=== PATIENT | female | born 1990 | race Caucasian/White ===

== ENCOUNTER 2020-01-07 07:24 | Emergency (ER) | payer SELFPAY ==
[2020-01-07] MEDS ORDERED: DIPHENHYDRAMINE 50 MG/ML VIAL ONE (07:54)
[2020-01-07] MEDS ORDERED: KETOROLAC 30 MG/ML INJ ONE (07:54)
[2020-01-07] MEDS ORDERED: METOCLOPRAMIDE 10 MG/2mL INJ ONE (07:54)
[2020-01-07] MEDS ORDERED: NA CHLORIDE 0.9% 1,000 ML ONE (07:55)
--- NOTE | 2020-01-07 08:50 | ER ---
Nurse's Notes [facility] Name: Chano Washington Age: 29 yrs Sex: Female : 1990 Arrival Date: 01/07/2020 Time: 07:28 Bed 18 Private MD: Diagnosis: Migraine;Acute pharyngitis Presentation: 01/07 07:38 Presenting complaint: Patient states: migraine, sore throat, fever/chills since last iw night, hx of migraines but this one is more intense. Transition of care: patient was not received from another setting of care. Onset of symptoms was January 06, 2020. Risk Assessment: Do you want to hurt yourself or someone else? Patient reports no desire to harm self or others. Initial Sepsis Screen: Does the patient meet any 2 criteria? No. Patient's initial sepsis screen is negative. Does the patient have a suspected source of infection? No. Patient's initial sepsis screen is negative. Care prior to arrival: Medication(s) given: Motrin, at 0400 Tylenol, at 0600. 07:38 Method Of Arrival: Ambulatory iw 07:38 Acuity: MARLIN 3 iw Triage Assessment: 07:35 Headache History: The patient has had previous headaches and this one is more severe rb1 than previous episodes. 07:35 Pain: Also complains of sleeplessness. 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 - Coronavirus screen:: The patient has NOT traveled to [place] in the past 14 days. Proceed with normal triage process as indicated. - Social history:: Smoking status: Patient denies any tobacco usage or history of. - Ebola Screening: : Patient negative for fever greater than or equal to 101.5 degrees Fahrenheit, and additional compatible Ebola Virus Disease symptoms Patient denies exposure to infectious person Patient denies travel to an Ebola-affected area in the 21 days before illness onset No symptoms or risks identified at this time. Screenin:35 Abuse screen: Denies threats or abuse. Nutritional screening: No deficits noted. rb1 Tuberculosis screening: No symptoms or risk factors identified. Fall Risk None identified. Assessment: 07:35 General: Appears uncomfortable, Behavior is calm, cooperative, Reports chills for fever rb1 for feeling ill for 12-24 hours. Pain: Complains of pain in forehead Pain currently is 10 out of 10 on a pain scale. Pain began last night. Neuro: Level of Consciousness is awake, alert, obeys commands, Oriented to person, place, time, situation. Cardiovascular: Capillary refill < 3 seconds is brisk in bilateral fingers. Respiratory: Airway is patent Respiratory effort is even, unlabored, Respiratory pattern is regular, symmetrical. EENT: Throat pt. reports sore throat. Derm: Skin is pink, warm \T\ dry. 08:30 Reassessment: Patient appears in no apparent distress at this time. Patient and/or rb1 family updated on plan of care and expected duration. Pain level reassessed. Patient is alert, oriented x 3, equal unlabored respirations, skin warm/dry/pink. Patient states symptoms have improved. 08:59 Reassessment: Discharge pending due to IV fluids infusing. rb1 09:20 Reassessment: Patient appears in no apparent distress at this time. Patient and/or rb1 family updated on plan of care and expected duration. Pain level reassessed. Patient is alert, oriented x 3, equal unlabored respirations, skin warm/dry/pink. Patient states feeling better. Vital Signs: 07:41 BP 133 / 75; Pulse 119; Resp 18 S; Temp 99.0(O); Pulse Ox 100% on R/A; Weight 115.67 iw kg; Height 5 ft. 1 in. (154.94 cm); Pain 8/10; 08:40 BP 112 / 71; Pulse 105; Resp 17; Pulse Ox 95% on R/A; Pain 5/10; rb1 07:41 Body Mass Index 48.18 (115.67 kg, 154.94 cm) iw [place] Coma Score: 07:55 Eye Response: spontaneous(4). Verbal Response: oriented(5). Motor Response: obeys kb commands(6). Total: 15. ED Course: 07:28 Patient arrived in ED. ag5 07:28 Tereza Willams FNP-C [facility]. kb 07:28 Chris Bagley MD is Attending Physician. kb 07:35 Patient has correct armband on for positive identification. Bed in low position. Call rb1 light in reach. Side rails up X 1. Pulse ox on. NIBP on. sheet was given to the pt.. 07:37 Gayle Smalls, RN is Primary Nurse. rb1 07:40 Triage completed. iw 07:40 Inserted saline lock: 22 gauge in right antecubital area, using aseptic technique. rb1 07:54 Arm band placed on. iw 09:25 No provider procedures requiring assistance completed. rb1 09:25 IV discontinued. rb1 Administered Medications: 08:00 Drug: NS 0.9% 1000 ml Route: IV; Rate: 1000 ml; Site: right antecubital; rb1 09:20 Follow up: IV Status: Completed infusion rb1 08:00 Drug: Benadryl 12.5 mg Route: IVP; Site: right antecubital; rb1 08:15 Follow up: Response: No adverse reaction rb1 08:00 Drug: Reglan 10 mg Route: IVP; Site: right antecubital; rb1 08:15 Follow up: Response: No adverse reaction; Marked relief of symptoms rb1 08:00 Drug: TORadol - Ketorolac 15 mg Route: IVP; Site: right antecubital; rb1 08:15 Follow up: Response: No adverse reaction; Pain is decreased rb1 Output: 08:58 Urine: 1ml (Voided); Total: 1ml. rb1 Outcome: 08:49 Discharge ordered by MD. kb 09:25 Patient left the ED. rb1 09:25 Discharged to home ambulatory. rb1 09:25 Condition: stable 09:25 Discharge instructions given to patient, Instructed on discharge instructions, follow up and referral plans. Demonstrated understanding of instructions, follow-up care, Prescriptions given X none Signatures: Tereza Willams, PRODUCT TEST ENGINEER-C PRODUCT TEST ENGINEER-CkLiz Abrams RN RN iw Gayle Smalls, RN RN rb1 Braeden Peterson ag5 Corrections: (The following items were deleted from the chart) 07:53 07:41 BP 133 / 75; Pulse 119bpm; Resp 18bpm; Spontaneous; Pulse Ox 100% RA; Temp 99.0F iw Oral; iw
--- NOTE | 2020-01-07 08:50 | EDPHYS ---
Physician Documentation [facility] Name: Chano Washington Age: 29 yrs Sex: Female : 1990 Arrival Date: 01/07/2020 Time: 07:28 Bed 18 Private MD: ED Physician Chris Bagley HPI: 01/07 07:52 This 29 yrs old Female presents to ER via Ambulatory with complaints of Headache, Sore kb Throat. 07:52 The patient complains of pain to the forehead. The patient describes the headache as kb constant. Onset: The symptoms/episode began/occurred last night. Associated signs and symptoms: Pertinent positives: sore throat, chills, rhinorrhea. Severity of symptoms: At its worst the pain was moderate, in the emergency department the pain is unchanged. Headache History: The patient has had previous headaches and this one is similar to previous episodes, and this one is more severe than previous episodes. The symptoms are alleviated by nothing. the symptoms are aggravated by lights, movement, noise. The patient has experienced similar episodes in the past. The patient has not recently seen a physician. Pt reports migraine started last night with sore throat and runny nose. States the migraine feels the same as previous, but more intense. Denies fever, reports chills. . 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 - Coronavirus screen:: The patient has NOT traveled to [place] in the past 14 days. Proceed with normal triage process as indicated. - Social history:: Smoking status: Patient denies any tobacco usage or history of. - Ebola Screening: : Patient negative for fever greater than or equal to 101.5 degrees Fahrenheit, and additional compatible Ebola Virus Disease symptoms Patient denies exposure to infectious person Patient denies travel to an Ebola-affected area in the 21 days before illness onset No symptoms or risks identified at this time. ROS: 07:52 Neck: Negative for injury, pain, and swelling, Cardiovascular: Negative for chest pain, kb palpitations, and edema, Respiratory: Negative for shortness of breath, cough, wheezing, and pleuritic chest pain, Abdomen/GI: Negative for abdominal pain, nausea, vomiting, diarrhea, and constipation, Back: Negative for injury and pain, MS/Extremity: Negative for injury and deformity, Skin: Negative for injury, rash, and discoloration. 07:52 Constitutional: Positive for chills, malaise. 07:52 ENT: Positive for rhinorrhea, sore throat. 07:52 Neuro: Positive for headache. Exam: 07:52 Constitutional: This is a well developed, well nourished patient who is awake, alert, kb and in no acute distress. Head/Face: Normocephalic, atraumatic. ENT: Nares patent. No nasal discharge, no septal abnormalities noted. Tympanic membranes are normal and external auditory canals are clear. Oropharynx with no redness, swelling, or masses, exudates, or evidence of obstruction, uvula midline. Mucous membranes moist. Neck: Trachea midline, no thyromegaly or masses palpated, and no cervical lymphadenopathy. Supple, full range of motion without nuchal rigidity, or vertebral point tenderness. No Meningismus. Chest/axilla: Normal chest wall appearance and motion. Nontender with no deformity. No lesions are appreciated. Cardiovascular: Regular rate and rhythm with a normal S1 and S2. No gallops, murmurs, or rubs. Normal PMI, no JVD. No pulse deficits. Respiratory: Lungs have equal breath sounds bilaterally, clear to auscultation and percussion. No rales, rhonchi or wheezes noted. No increased work of breathing, no retractions or nasal flaring. Abdomen/GI: Soft, non-tender, with normal bowel sounds. No distension or tympany. No guarding or rebound. No evidence of tenderness throughout. Back: No spinal tenderness. No costovertebral tenderness. Full range of motion. Skin: Warm, dry with normal turgor. Normal color with no rashes, no lesions, and no evidence of cellulitis. MS/ Extremity: Pulses equal, no cyanosis. Neurovascular intact. Full, normal range of motion. Neuro: Awake and alert, GCS 15, oriented to person, place, time, and situation. Cranial nerves II-XII grossly intact. Motor strength 5/5 in all extremities. Sensory grossly intact. Cerebellar exam normal. Normal gait. Vital Signs: 07:41 BP 133 / 75; Pulse 119; Resp 18 S; Temp 99.0(O); Pulse Ox 100% on R/A; Weight 115.67 iw kg; Height 5 ft. 1 in. (154.94 cm); Pain 8/10; 08:40 BP 112 / 71; Pulse 105; Resp 17; Pulse Ox 95% on R/A; Pain 5/10; rb1 07:41 Body Mass Index 48.18 (115.67 kg, 154.94 cm) iw [place] Coma Score: 07:55 Eye Response: spontaneous(4). Verbal Response: oriented(5). Motor Response: obeys kb commands(6). Total: 15. MDM: 07:34 Patient medically screened. kb 07:55 Differential diagnosis: migraine, strep, influenza. Data reviewed: vital signs, nurses kb notes. Data interpreted: Pulse oximetry: on room air is 100 %. Interpretation: normal. 08:46 Counseling: I had a detailed discussion with the patient and/or guardian regarding: the kb historical points, exam findings, and any diagnostic results supporting the discharge/admit diagnosis, lab results, radiology results, the need for outpatient follow up, a family practitioner, to return to the emergency department if symptoms worsen or persist or if there are any questions or concerns that arise at home. 08:54 ED course: Headache resolved after treatment. kb 01/07 07:29 Order name: Flu; Complete Time: 08:16 kb 01/07 07:29 Order name: Strep; Complete Time: 08:09 kb 01/07 08:07 Order name: Throat Culture EDKY 01/07 07:39 Order name: IV Start; Complete Time: 08:04 kb Administered Medications: 08:00 Drug: NS 0.9% 1000 ml Route: IV; Rate: 1000 ml; Site: right antecubital; rb1 09:20 Follow up: IV Status: Completed infusion rb1 08:00 Drug: Benadryl 12.5 mg Route: IVP; Site: right antecubital; rb1 08:15 Follow up: Response: No adverse reaction rb1 08:00 Drug: Reglan 10 mg Route: IVP; Site: right antecubital; rb1 08:15 Follow up: Response: No adverse reaction; Marked relief of symptoms rb1 08:00 Drug: TORadol - Ketorolac 15 mg Route: IVP; Site: right antecubital; rb1 08:15 Follow up: Response: No adverse reaction; Pain is decreased rb1 Disposition: 10:02 Co-signature as Attending Physician, Chris Bagley MD. rn Disposition: 01/07/20 08:49 Discharged to Home. Impression: Migraine, Acute pharyngitis. - Condition is Stable. - Discharge Instructions: Pharyngitis, [id number], Migraine Headache, [id number], Viral Respiratory Infection, [id number]. - Medication Reconciliation Form, Thank You Letter, Antibiotic Education, Prescription Opioid Use form. - Follow up: Emergency Department; When: As needed; Reason: Worsening of condition. Follow up: Private Physician; When: 2 - 3 days; Reason: Recheck today's complaints, Continuance of care, Re-evaluation by your physician. Signatures: Dispatcher [employer] Tereza Skinner, JULIEN GRECOP-Liz Peters RN RN iw Nieto, Roman, MD MD rn Barber, Rebecca, RN RN rb1 Corrections: (The following items were deleted from the chart) 09:25 08:49 01/07/2020 08:49 Discharged to Home. Impression: Migraine; Acute pharyngitis. rb1 Condition is Stable. Forms are Medication Reconciliation Form, Thank You Letter, Antibiotic Education, Prescription Opioid Use. Follow up: Emergency Department; When: As needed; Reason: Worsening of condition. Follow up: Private Physician; When: 2 - 3 days; Reason: Recheck today's complaints, Continuance of care, Re-evaluation by your physician. kb
== END 2020-01-07 09:25 | disposition home or self-care (01) ==
LOC: ER 07:24
DX: G43.909 Migraine, unspecified, not intractable, without status migrainosus (principal); J02.9 Acute pharyngitis, unspecified
CPT/HCPCS: 87070; 87081; 87804; 96361; 96374; 96375; 99284; J1200; J2765; J7030

== ENCOUNTER 2022-10-05 23:08 | Emergency (ER) | payer OTHER, SELFPAY ==
--- OUTSIDE RECORDS SUMMARY | 2022-10-05 23:16 | XMS REPORT | Continuity of Care Document ---
:1990 Author Organization [facility] t Address [address] [place] [address] Care Team Providers Name Role Phone Pcp, Patient Does Not Have A Primary Care Physician +[id number] Ольга Attending Clinician Unavailable SOPHIA RAMOS Attending Clinician Unavailable MARK COFFEY Attending Clinician Unavailable Nurse, Adc Pob Immunization Attending Clinician Unavailable Mark Coffey DO Attending Clinician Sophia Ramos MD Attending Clinician Maury Verduzco PA-C Attending Clinician Doctor Unassigned, [place] Attending Clinician Unavailable MAURY VERDUZCO Attending Clinician Unavailable Juan Diego HUERTA, Isabella Grande Attending Clinician Unavailable JOHNNIE GUTIERREZ Attending Clinician Unavailable Lucia Le MD Attending Clinician HARVEY NARAYANAN Attending Clinician Unavailable [facility] Attending Clinician Unavailable Ultrasound, Adc Mfm Attending Clinician Unavailable Johnnie Gutierrez MD Attending Clinician Harvey Narayanan MD Attending Clinician Joaquin Granger MD Attending Clinician Ultrasound, Terrell-Mfmaximino Attending Clinician Unavailable Gordon Callahan MD, Dia Attending Clinician [phone] Deya Coffey MD Attending Clinician Tiki Del Valle Attending Clinician Unavailable Cesar Hinojosa MD Attending Clinician CESAR HINOJOSA Attending Clinician Unavailable 2, Adc Lab Attending Clinician Unavailable Johnson HAMPTON, Ting Ashton Attending Clinician TING ORNELAS Attending Clinician Unavailable Gela HUERTA, Joleen Attending Clinician Unavailable ANNABELLE MOHR Attending Clinician Unavailable Nurse, Adc Women[facility] Attending Clinician Unavailable Pob, Adc Lab Main Attending Clinician Unavailable RICHARD, SOPHIA MELVIN Admitting Clinician Unavailable Ольга Admitting Clinician Unavailable Richard HAMPTON, Sophia Melvin Admitting Clinician Lucia Le MD Admitting Clinician Payers Payer Name Policy Type Policy Number Effective Date Expiration Date [facility] [id number] 2020 [facility] [employer] 00:00:00 [facility] [id number] 2016 [facility] 00:00:00 (MEDICAID HMO) [place]ICAID [place] [id number] 2020 00:00:00 Problems Condition Condition Condition Status Onset Resolution Last Treating Co mments Source Name Details Category Date Date Treatment Clinician Date Morbid Morbid Disease Active Univers obesity obesity 9-04 [place] index [place] dical of 50 or of 50 or Branch higher higher Previous Previous Disease Active Unive rs 12-16 ity of section section 00:00: [place] 00 Medical [facility] 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 00 Medical depressive depressive Br anch disorder, disorder, 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 Pregestati Pregestati Disease Active U nivers onal onal 12-16 ity of diabetes diabetes 00:00: [place] mellitus, mellitus, 00 Medi jerome modified modified Branch White White class B class B Allergies, Adverse Reactions, Alerts Allergy Allergy Status Severity Reaction(s) Onset Inactive Treating Comm ents Source Name Type Date Date Clinician NO KNOWN Drug Active Univers ALLERGIE Class ity of S [facility] Social History Social Habit Start Date Stop Date Quantity Comments Source Exposure to Not sure [facility] SARS-CoV-2 [facility] (event) Branch Alcohol intake 2021-09-20 2021[facility]09[facility] Tobacco use and 2020-11-30 2020-11-30 Never used Universit y of exposure 00:00:00 00:00:00 [facility] Sex Ass[birth year] At [birth year] Universit y of 00:00:00 00:00:00 [facility] Smoking Status Start Date Stop Date Source Never smoker [facility] Medications Ordered Filled Start Stop Current Ordering Indication Dosage Frequency Signature Comments Components Source Medication Medication Date Date Medication? Clinician (SIG) Name Name FLUOXETINE 2022-0 No CAP 20MG 8-16 00:00: 00 METFORMIN 2022-0 No TAB 500MG 8-16 ER 00:00: 00 FLUOXETINE 2022-0 No CAP 20MG 8-16 00:00: 00 METFORMIN 2022-0 No TAB 500MG 8-16 ER 00:00: 00 FLUOXETINE 2022-0 No CAP 20MG 8-16 00:00: 00 METFORMIN 2022-0 No TAB 500MG 8-16 ER 00:00: 00 FLUOXETINE 2022-0 No CAP 20MG 8-16 00:00: 00 METFORMIN 2022-0 No TAB 500MG 8-16 ER 00:00: 00 TAKE 1 2022-0 No 20 CAPSULE BY 7-19 MOUTH ONCE 00:00: DAILY 00 INJECT 37 2022-0 No UNITS 7-19 SUBCUTANEOU 00:00: SLY WITH 00 BREAKFAST AND 17 UNITS WITH DINNER TAKE 1 2022-0 No 20 CAPSULE BY 7-19 MOUTH ONCE 00:00: DAILY 00 INJECT 37 2022-0 No UNITS 7-19 SUBCUTANEOU 00:00: SLY WITH 00 BREAKFAST AND 17 UNITS WITH DINNER TAKE 1 2022-0 No 20 CAPSULE BY 7-19 MOUTH ONCE 00:00: DAILY 00 INJECT 37 2022-0 No UNITS 7-19 SUBCUTANEOU 00:00: SLY WITH 00 BREAKFAST AND 17 UNITS WITH DINNER TAKE 1 2022-0 No 20 CAPSULE BY 7-19 MOUTH ONCE 00:00: DAILY 00 INJECT 37 2022-0 No UNITS 7-19 SUBCUTANEOU 00:00: SLY WITH 00 BREAKFAST AND 17 UNITS WITH DINNER TAKE 1 2022-0 No 20 CAPSULE BY 7-19 MOUTH ONCE 00:00: DAILY 00 INJECT 37 2022-0 No UNITS 7-19 SUBCUTANEOU 00:00: SLY WITH 00 BREAKFAST AND 17 UNITS WITH DINNER &lt 2022-0 No 7-18 00:00: 00 &lt 2022-0 No 7-18 00:00: 00 &lt 2022-0 No 7-18 00:00: 00 &lt 2022-0 No 7-18 00:00: 00 &lt 2022-0 No 7-18 00:00: 00 buspirone 2022-0 No 1mg 10 mg 6-27 tablet 00:00: 00 Prozac 20 2022-0 No 1mg mg capsule 6-27 00:00: 00 TAKE 1 2022-0 No CAPSULE BY 6-27 MOUTH ONCE 00:00: DAILY 00 buspirone 2022-0 No 1mg 10 mg 6-27 tablet 00:00: 00 Prozac 20 2022-0 No 1mg mg capsule 6-27 00:00: 00 TAKE 1 2022-0 No CAPSULE BY 6-27 MOUTH ONCE 00:00: DAILY 00 buspirone 2022-0 No 1mg 10 mg 6-27 tablet 00:00: 00 Prozac 20 2022-0 No 1mg mg capsule 6-27 00:00: 00 TAKE 1 2022-0 No CAPSULE BY 6-27 MOUTH ONCE 00:00: DAILY 00 buspirone 2022-0 No 1mg 10 mg 6-27 tablet 00:00: 00 Prozac 20 2022-0 No 1mg mg capsule 6-27 00:00: 00 TAKE 1 2022-0 No CAPSULE BY 6-27 MOUTH ONCE 00:00: DAILY 00 buspirone 2022-0 No 1mg 10 mg 6-27 tablet 00:00: 00 Prozac 20 2022-0 No 1mg mg capsule 6-27 00:00: 00 TAKE 1 2022-0 No CAPSULE BY 6-27 MOUTH ONCE 00:00: DAILY 00 metformin 2022-0 No 1mg 500 mg 6-16 tablet 00:00: 00 metformin 2022-0 No 1mg 500 mg 6-16 tablet 00:00: 00 metformin 2022-0 No 1mg 500 mg 6-16 tablet 00:00: 00 metformin 2022-0 No 1mg 500 mg 6-16 tablet 00:00: 00 metformin 2022-0 No 1mg 500 mg 6-16 tablet 00:00: 00 &lt 2022-0 No 6- 00:00: 00 &lt 2022-0 No 6- 00:00: 00 &lt 2022-0 No 6- 00:00: 00 &lt 2022-0 No 6-09 00:00: 00 &lt 2022-0 No 6-09 00:00: 00 &lt 2022-0 No 6-06 00:00: 00 TAKE 1 2022-0 No TABLET BY 6-06 MOUTH EVERY 00:00: 6 HOURS 00 NEEDED FOR PAIN ( SCALE 7 10) FOR UP TO 7 DAYS &lt 2022-0 No 6-06 00:00: 00 &lt 2022-0 No 6-06 00:00: 00 &lt 2022-0 No 6-06 00:00: 00 TAKE 1 2022-0 No TABLET BY 6-06 MOUTH EVERY 00:00: 6 HOURS 00 NEEDED FOR PAIN ( SCALE 7 10) FOR UP TO 7 DAYS &lt 2022-0 No 6-06 00:00: 00 &lt 2022-0 No 6-06 00:00: 00 &lt 2022-0 No 6-06 00:00: 00 TAKE 1 2022-0 No TABLET BY 6-06 MOUTH EVERY 00:00: 6 HOURS 00 NEEDED FOR PAIN ( SCALE 7 10) FOR UP TO 7 DAYS &lt 2022-0 No 6-06 00:00: 00 &lt 2022-0 No 6-06 00:00: 00 &lt 2022-0 No 6-06 00:00: 00 TAKE 1 2022-0 No TABLET BY 6-06 MOUTH EVERY 00:00: 6 HOURS 00 NEEDED FOR PAIN ( SCALE 7 10) FOR UP TO 7 DAYS &lt 2022-0 No 6-06 00:00: 00 &lt 2022-0 No 6-06 00:00: 00 &lt 2022-0 No 6-06 00:00: 00 TAKE 1 2022-0 No TABLET BY 6-06 MOUTH EVERY 00:00: 6 HOURS 00 NEEDED FOR PAIN ( SCALE 7 10) FOR UP TO 7 DAYS &lt 2022-0 No 6-06 00:00: 00 &lt 2022-0 No 6-06 00:00: 00 buspirone 2-0 No 1mg 7.5 mg 5-24 tablet 00:00: 00 Prozac 20 2022-0 No 1mg mg capsule 5-24 00:00: 00 Dose 2022-0 No Unknown 5-24 00:00: 00 Dose 2022-0 No Unknown 5-24 00:00: 00 Dose 2022-0 No Unknown 5-24 00:00: 00 buspirone 2022-0 No 1mg 7.5 mg 5-24 tablet 00:00: 00 Prozac 20 2-0 No 1mg mg capsule 5-24 00:00: 00 Dose 2022-0 No Unknown 5-24 00:00: 00 Dose 2022-0 No Unknown 5-24 00:00: 00 Dose 2022-0 No Unknown 5-24 00:00: 00 buspirone 2022-0 No 1mg 7.5 mg 5-24 tablet 00:00: 00 Prozac 20 2-0 No 1mg mg capsule 5-24 00:00: 00 Dose 2022-0 No Unknown 5-24 00:00: 00 Dose 2022-0 No Unknown 5-24 00:00: 00 Dose 2022-0 No Unknown 5-24 00:00: 00 buspirone 2022-0 No 1mg 7.5 mg 5-24 tablet 00:00: 00 Prozac 20 2-0 No 1mg mg capsule 5-24 00:00: 00 Dose 2-0 No Unknown 5-24 00:00: 00 Dose 2022-0 No Unknown 5-24 00:00: 00 Dose 2022-0 No Unknown 5-24 00:00: 00 buspirone 2022-0 No 1mg 7.5 mg 5-24 tablet 00:00: 00 Prozac 20 2-0 No 1mg mg capsule 5-24 00:00: 00 Dose 2022-0 No Unknown 5-24 00:00: 00 Dose 2022-0 No Unknown 5-24 00:00: 00 Dose 2022-0 No Unknown 5-24 00:00: 00 buspirone 5 2-0 No 1mg mg tablet 5-10 00:00: 00 Dose 2022-0 No Unknown 5-10 00:00: 00 Dose 2022-0 No Unknown 5-10 00:00: 00 Dose 2022-0 No Unknown 5-10 00:00: 00 Dose 2022-0 No Unknown 5-10 00:00: 00 Dose 2022-0 No Unknown 5-10 00:00: 00 Dose 2022-0 No Unknown 5-10 00:00: 00 Dose 2022-0 No Unknown 5-10 00:00: 00 Dose 2022-0 No Unknown 5-10 00:00: 00 Dose 2022-0 No Unknown 5-10 00:00: 00 Dose 2022-0 No Unknown 5-10 00:00: 00 Dose 2022-0 No Unknown 5-10 00:00: 00 Dose 2022-0 No Unknown 5-10 00:00: 00 Dose 2022-0 No Unknown 5-10 00:00: 00 Dose 2022-0 No Unknown 5-10 00:00: 00 Dose 2022-0 No Unknown 5-10 00:00: 00 Dose 2022-0 No Unknown 5-10 00:00: 00 Dose 2022-0 No Unknown 5-10 00:00: 00 Dose 2022-0 No Unknown 5-10 00:00: 00 Dose 2022-0 No Unknown 5-10 00:00: 00 Dose 2022-0 No Unknown 5-10 00:00: 00 Dose 2022-0 No Unknown 5-10 00:00: 00 Dose 2022-0 No Unknown 5-10 00:00: 00 Dose 2022-0 No Unknown 5-10 00:00: 00 Dose 2022-0 No Unknown 5-10 00:00: 00 Dose 2022-0 No Unknown 5-10 00:00: 00 Dose 2022-0 No Unknown 5-10 00:00: 00 Dose 2022-0 No Unknown 5-10 00:00: 00 Dose 2022-0 No Unknown 5-10 00:00: 00 Dose 2022-0 No Unknown 5-10 00:00: 00 Dose 2022-0 No Unknown 5-10 00:00: 00 Dose 2022-0 No Unknown 5-10 00:00: 00 Dose 2022-0 No Unknown 5-10 00:00: 00 buspirone 5 2-0 No 1mg mg tablet 5-10 00:00: 00 Dose 2022-0 No Unknown 5-10 00:00: 00 Dose 2022-0 No Unknown 5-10 00:00: 00 Dose 2022-0 No Unknown 5-10 00:00: 00 Dose 2022-0 No Unknown 5-10 00:00: 00 Dose 2022-0 No Unknown 5-10 00:00: 00 Dose 2022-0 No Unknown 5-10 00:00: 00 Dose 2022-0 No Unknown 5-10 00:00: 00 Dose 2022-0 No Unknown 5-10 00:00: 00 Dose 2022-0 No Unknown 5-10 00:00: 00 Dose 2022-0 No Unknown 5-10 00:00: 00 Dose 2022-0 No Unknown 5-10 00:00: 00 Dose 2022-0 No Unknown 5-10 00:00: 00 Dose 2022-0 No Unknown 5-10 00:00: 00 Dose 2022-0 No Unknown 5-10 00:00: 00 Dose 2022-0 No Unknown 5-10 00:00: 00 Dose 2022-0 No Unknown 5-10 00:00: 00 Dose 2022-0 No Unknown 5-10 00:00: 00 Dose 2022-0 No Unknown 5-10 00:00: 00 Dose 2022-0 No Unknown 5-10 00:00: 00 Dose 2022-0 No Unknown 5-10 00:00: 00 Dose 2022-0 No Unknown 5-10 00:00: 00 Dose 2022-0 No Unknown 5-10 00:00: 00 Dose 2022-0 No Unknown 5-10 00:00: 00 Dose 2022-0 No Unknown 5-10 00:00: 00 Dose 2022-0 No Unknown 5-10 00:00: 00 Dose 2022-0 No Unknown 5-10 00:00: 00 Dose 2022-0 No Unknown 5-10 00:00: 00 Dose 2022-0 No Unknown 5-10 00:00: 00 Dose 2022-0 No Unknown 5-10 00:00: 00 Dose 2022-0 No Unknown 5-10 00:00: 00 Dose 2022-0 No Unknown 5-10 00:00: 00 Dose 2022-0 No Unknown 5-10 00:00: 00 buspirone 5 2-0 No 1mg mg tablet 5-10 00:00: 00 Dose 2022-0 No Unknown 5-10 00:00: 00 Dose 2022-0 No Unknown 5-10 00:00: 00 Dose 2022-0 No Unknown 5-10 00:00: 00 Dose 2022-0 No Unknown 5-10 00:00: 00 Dose 2022-0 No Unknown 5-10 00:00: 00 Dose 2022-0 No Unknown 5-10 00:00: 00 buspirone 5 2-0 No 1mg mg tablet 5-10 00:00: 00 Dose 2022-0 No Unknown 5-10 00:00: 00 Dose 2022-0 No Unknown 5-10 00:00: 00 Dose 2022-0 No Unknown 5-10 00:00: 00 Dose 2022-0 No Unknown 5-10 00:00: 00 Dose 2022-0 No Unknown 5-10 00:00: 00 Dose 2022-0 No Unknown 5-10 00:00: 00 Dose 2022-0 No Unknown 5-10 00:00: 00 Dose 2022-0 No Unknown 5-10 00:00: 00 Dose 2022-0 No Unknown 5-10 00:00: 00 Dose 2022-0 No Unknown 5-10 00:00: 00 Dose 2022-0 No Unknown 5-10 00:00: 00 Dose 2022-0 No Unknown 5-10 00:00: 00 Dose 2022-0 No Unknown 5-10 00:00: 00 Dose 2022-0 No Unknown 5-10 00:00: 00 Dose 2022-0 No Unknown 5-10 00:00: 00 Dose 2022-0 No Unknown 5-10 00:00: 00 Dose 2022-0 No Unknown 5-10 00:00: 00 Dose 2022-0 No Unknown 5-10 00:00: 00 Dose 2022-0 No Unknown 5-10 00:00: 00 Dose 2022-0 No Unknown 5-10 00:00: 00 Dose 2022-0 No Unknown 5-10 00:00: 00 Dose 2022-0 No Unknown 5-10 00:00: 00 Dose 2022-0 No Unknown 5-10 00:00: 00 Dose 2022-0 No Unknown 5-10 00:00: 00 Dose 2022-0 No Unknown 5-10 00:00: 00 Dose 2022-0 No Unknown 5-10 00:00: 00 Dose 2022-0 No Unknown 5-10 00:00: 00 Dose 2022-0 No Unknown 5-10 00:00: 00 Dose 2022-0 No Unknown 5-10 00:00: 00 Dose 2022-0 No Unknown 5-10 00:00: 00 Dose 2022-0 No Unknown 5-10 00:00: 00 Dose 2022-0 No Unknown 5-10 00:00: 00 Dose 2022-0 No Unknown 5-10 00:00: 00 Dose 2022-0 No Unknown 5-10 00:00: 00 Dose 2022-0 No Unknown 5-10 00:00: 00 Dose 2022-0 No Unknown 5-10 00:00: 00 Dose 2022-0 No Unknown 5-10 00:00: 00 Dose 2022-0 No Unknown 5-10 00:00: 00 Dose 2022-0 No Unknown 5-10 00:00: 00 Dose 2022-0 No Unknown 5-10 00:00: 00 Dose 2022-0 No Unknown 5-10 00:00: 00 Dose 2022-0 No Unknown 5-10 00:00: 00 Dose 2022-0 No Unknown 5-10 00:00: 00 Dose 2022-0 No Unknown 5-10 00:00: 00 Dose 2022-0 No Unknown 5-10 00:00: 00 buspirone 5 2022-0 No 1mg mg tablet 5-10 00:00: 00 Dose 2022-0 No Unknown 5-10 00:00: 00 Dose 2022-0 No Unknown 5-10 00:00: 00 Dose 2022-0 No Unknown 5-10 00:00: 00 Dose 2022-0 No Unknown 5-10 00:00: 00 Dose 2022-0 No Unknown 5-10 00:00: 00 Dose 2022-0 No Unknown 5-10 00:00: 00 Dose 2022-0 No Unknown 5-10 00:00: 00 Dose 2022-0 No Unknown 5-10 00:00: 00 Dose 2022-0 No Unknown 5-10 00:00: 00 Dose 2022-0 No Unknown 5-10 00:00: 00 Dose 2022-0 No Unknown 5-10 00:00: 00 Dose 2022-0 No Unknown 5-10 00:00: 00 Dose 2022-0 No Unknown 5-10 00:00: 00 Dose 2022-0 No Unknown 5-10 00:00: 00 Dose 2022-0 No Unknown 5-10 00:00: 00 Dose 2022-0 No Unknown 5-10 00:00: 00 Dose 2022-0 No Unknown 5-10 00:00: 00 Dose 2022-0 No Unknown 5-10 00:00: 00 Dose 2022-0 No Unknown 5-10 00:00: 00 Dose 2022-0 No Unknown 5-10 00:00: 00 Dose 2022-0 No Unknown 5-10 00:00: 00 Dose 2022-0 No Unknown 5-10 00:00: 00 Dose 2022-0 No Unknown 5-10 00:00: 00 Dose 2022-0 No Unknown 5-10 00:00: 00 Dose 2022-0 No Unknown 5-10 00:00: 00 Dose 2022-0 No Unknown 5-10 00:00: 00 Dose 2022-0 No Unknown 5-10 00:00: 00 Dose 2022-0 No Unknown 5-10 00:00: 00 Dose 2022-0 No Unknown 5-10 00:00: 00 Dose 2022-0 No Unknown 5-10 00:00: 00 Dose 2022-0 No Unknown 5-10 00:00: 00 Dose 2022-0 No Unknown 5-10 00:00: 00 Dose 2022-0 No Unknown 5-10 00:00: 00 Dose 2022-0 No Unknown 5-10 00:00: 00 Dose 2022-0 No Unknown 5-10 00:00: 00 Dose 2022-0 No Unknown 5-10 00:00: 00 Dose 2022-0 No Unknown 5-10 00:00: 00 Dose 2022-0 No Unknown 5-10 00:00: 00 Dose 2022-0 No Unknown 5-10 00:00: 00 Dose 2022-0 No Unknown 5-10 00:00: 00 Dose 2022-0 No Unknown 5-10 00:00: 00 Dose 2022-0 No Unknown 5-10 00:00: 00 Dose 2022-0 No Unknown 5-10 00:00: 00 Dose 2022-0 No Unknown 5-10 00:00: 00 Dose 2022-0 No Unknown 5-10 00:00: 00 Dose 2022-0 No Unknown 5-09 00:00: 00 Dose 2022-0 No Unknown 5-09 00:00: 00 Dose 2022-0 No Unknown 5-09 00:00: 00 Dose 2022-0 No Unknown 5-09 00:00: 00 Dose 2022-0 No Unknown 5-09 00:00: 00 Dose 2022-0 No Unknown 5-09 00:00: 00 Dose 2022-0 No Unknown 5-09 00:00: 00 Dose 2022-0 No Unknown 5-09 00:00: 00 Dose 2022-0 No Unknown 5-09 00:00: 00 Dose 2022-0 No Unknown 5-09 00:00: 00 Dose 2022-0 No Unknown 5-09 00:00: 00 Dose 2022-0 No Unknown 5-09 00:00: 00 Dose 2022-0 No Unknown 5-09 00:00: 00 Dose 2022-0 No Unknown 5-09 00:00: 00 Dose 2022-0 No Unknown 5-09 00:00: 00 Dose 2022-0 No Unknown 5-09 00:00: 00 Dose 2022-0 No Unknown 5-09 00:00: 00 Dose 2022-0 No Unknown 5-09 00:00: 00 Dose 2022-0 No Unknown 5-09 00:00: 00 Dose 2022-0 No Unknown 5-09 00:00: 00 Dose 2022-0 No Unknown 5-09 00:00: 00 Dose 2022-0 No Unknown 5-09 00:00: 00 Dose 2022-0 No Unknown 5-09 00:00: 00 Dose 2022-0 No Unknown 5-09 00:00: 00 Dose 2022-0 No Unknown 5-09 00:00: 00 Dose 2022-0 No Unknown 5-09 00:00: 00 Dose 2022-0 No Unknown 5-09 00:00: 00 Dose 2022-0 No Unknown 5-09 00:00: 00 Dose 2022-0 No Unknown 5-09 00:00: 00 Dose 2022-0 No Unknown 5-09 00:00: 00 Dose 2022-0 No Unknown 5-09 00:00: 00 Dose 2022-0 No Unknown 5-09 00:00: 00 Dose 2022-0 No Unknown 5-09 00:00: 00 Dose 2022-0 No Unknown 5-09 00:00: 00 Dose 2022-0 No Unknown 5-09 00:00: 00 Dose 2022-0 No Unknown 5-09 00:00: 00 Dose 2022-0 No Unknown 5-09 00:00: 00 Dose 2022-0 No Unknown 5-09 00:00: 00 Dose 2022-0 No Unknown 5-09 00:00: 00 Dose 2022-0 No Unknown 5-09 00:00: 00 Dose 2022-0 No Unknown 5-09 00:00: 00 Dose 2022-0 No Unknown 5-09 00:00: 00 Dose 2022-0 No Unknown 5-09 00:00: 00 Dose 2022-0 No Unknown 5-09 00:00: 00 Dose 2022-0 No Unknown 5-09 00:00: 00 Dose 2022-0 No Unknown 5-09 00:00: 00 Dose 2022-0 No Unknown 5-09 00:00: 00 Dose 2022-0 No Unknown 5-09 00:00: 00 Dose 2022-0 No Unknown 5-09 00:00: 00 Dose 2022-0 No Unknown 5-09 00:00: 00 Dose 2022-0 No Unknown 4-22 00:00: 00 Dose 2022-0 No Unknown 4-22 00:00: 00 Dose 2022-0 No Unknown 4-22 00:00: 00 Dose 2022-0 No Unknown 4-22 00:00: 00 Dose 2022-0 No Unknown 4-22 00:00: 00 Dose 2022-0 No Unknown 4-22 00:00: 00 Dose 2022-0 No Unknown 4-22 00:00: 00 Dose 2022-0 No Unknown 4-22 00:00: 00 Dose 2022-0 No Unknown 4-22 00:00: 00 Dose 2022-0 No Unknown 4-22 00:00: 00 Dose 2022-0 No Unknown 4-22 00:00: 00 Dose 2022-0 No Unknown 4-22 00:00: 00 Dose 2022-0 No Unknown 4-22 00:00: 00 Dose 2022-0 No Unknown 4-22 00:00: 00 Dose 2022-0 No Unknown 4-22 00:00: 00 Dose 2022-0 No Unknown 4-22 00:00: 00 Dose 2022-0 No Unknown 4-22 00:00: 00 Dose 2022-0 No Unknown 4-22 00:00: 00 Dose 2022-0 No Unknown 4-22 00:00: 00 Dose 2022-0 No Unknown 4-22 00:00: 00 Dose 2022-0 No Unknown 4-22 00:00: 00 Dose 2022-0 No Unknown 4-22 00:00: 00 Dose 2022-0 No Unknown 4-22 00:00: 00 Dose 2022-0 No Unknown 4-22 00:00: 00 Dose 2022-0 No Unknown 4-22 00:00: 00 Dose 2022-0 No Unknown 4-22 00:00: 00 Dose 2022-0 No Unknown 4-22 00:00: 00 Dose 2022-0 No Unknown 4-22 00:00: 00 Dose 2022-0 No Unknown 4-22 00:00: 00 Dose 2022-0 No Unknown 4-22 00:00: 00 Dose 2022-0 No Unknown 4-22 00:00: 00 Dose 2022-0 No Unknown 4-22 00:00: 00 Dose 2022-0 No Unknown 4-22 00:00: 00 Dose 2022-0 No Unknown 4-22 00:00: 00 Dose 2022-0 No Unknown 4-22 00:00: 00 Dose 2022-0 No Unknown 4-22 00:00: 00 Dose 2022-0 No Unknown 4-22 00:00: 00 Dose 2022-0 No Unknown 4-22 00:00: 00 Dose 2022-0 No Unknown 4-22 00:00: 00 Dose 2022-0 No Unknown 4-22 00:00: 00 Dose 2022-0 No Unknown 4-22 00:00: 00 Dose 2022-0 No Unknown 4-22 00:00: 00 Dose 2022-0 No Unknown 4-22 00:00: 00 Dose 2022-0 No Unknown 4-22 00:00: 00 Dose 2022-0 No Unknown 4-22 00:00: 00 Dose 2022-0 No Unknown 4-22 00:00: 00 Dose 2022-0 No Unknown 4-22 00:00: 00 Dose 2022-0 No Unknown 4-22 00:00: 00 Dose 2022-0 No Unknown 4-22 00:00: 00 Dose 2022-0 No Unknown 4-22 00:00: 00 Dose 2022-0 No Unknown 4-22 00:00: 00 Dose 2022-0 No Unknown 4-22 00:00: 00 Dose 2022-0 No Unknown 4-22 00:00: 00 Dose 2022-0 No Unknown 4-22 00:00: 00 Dose 2022-0 No Unknown 4-22 00:00: 00 Dose 2022-0 No Unknown 4-22 00:00: 00 Dose 2022-0 No Unknown 4-22 00:00: 00 Dose 2022-0 No Unknown 4-22 00:00: 00 Dose 2022-0 No Unknown 4-22 00:00: 00 Dose 2022-0 No Unknown 4-22 00:00: 00 Dose 2022-0 No Unknown 4-22 00:00: 00 Dose 2022-0 No Unknown 4-22 00:00: 00 Dose 2022-0 No Unknown 4-22 00:00: 00 Dose 2022-0 No Unknown 4-22 00:00: 00 Dose 2022-0 No Unknown 4-22 00:00: 00 Dose 2022-0 No Unknown 4-22 00:00: 00 Dose 2022-0 No Unknown 4-22 00:00: 00 Dose 2022-0 No Unknown 4-22 00:00: 00 Dose 2022-0 No Unknown 4-22 00:00: 00 Dose 2022-0 No Unknown 4-22 00:00: 00 Dose 2022-0 No Unknown 4-22 00:00: 00 Dose 2022-0 No Unknown 4-22 00:00: 00 Dose 2022-0 No Unknown 4-22 00:00: 00 Dose 2022-0 No Unknown 4-22 00:00: 00 Dose 2022-0 No Unknown 4-22 00:00: 00 Prozac 20 2022-0 No 1mg mg capsule 1-26 00:00: 00 Prozac 20 2022-0 No 1mg mg capsule 1- 00:00: 00 Prozac 20 2022-0 No 1mg mg capsule 1- 00:00: 00 Prozac 20 2022-0 No 1mg mg capsule 1- 00:00: 00 Prozac 20 2022-0 No 1mg mg capsule 1- 00:00: 00 Prozac 10 1-1 No 1mg mg capsule 2-28 00:00: 00 Prozac 10 1-1 No 1mg mg capsule 2- 00:00: 00 Prozac 10 1-1 No 1mg mg capsule 2- 00:00: 00 Prozac 10 2020-1 No 1mg mg capsule 2-28 00:00: 00 Prozac 10 2020-11 No 1mg mg capsule 2-28 00:00: 00 FLUoxetine 2020-11 Yes [id number] 20mg Take 1 U nivers 20 mg 0-01 capsule by ity of capsule 00:00: mouth [place] 00 daily. Medical Branch miSOPROStoL 2020-11 Yes [id number] 200ug Take 1 Univers 200 mcg 0-01 tablet by ity of tablet 00:00: mouth [place] 00 SEE-INSTRU Medical CTIONS. Branch Take one tab the night before and one tab the morning of procedure acetaminoph 2020- No [id number] 650mg Take 2 Univers en 325 mg 07-24 tablets by ity of tablet 00:00: 00:00 mouth [place] 00 :00 every 6 Medical (six) Branch hours as needed for Pain (scale 1-3) or Pain (scale 4-6). 2020- No [id number] 1{tbl} Take 1 Univers vitamin 07-24 tablet by [facility] of w/FA tablet 00:00: [place] :[place] daily. [facility] docusate 2020- No [id number] 240mg Take 1 [facility] calcium 240 07-24 capsule by i ty of mg capsule 00:00: 00:00 mouth once [place] 00 :00 daily as Medical needed for Branch Constipati on. ferrous 2020- No [id number] 325mg Take 1 [facility] kelly sulfate 325 07-24 tablet by it y of mg (65 mg 00:00: 00:[place] iron[place] 00 :00 (two) Medical tablet times Branch daily. ibuprofen 2020- No [id number] 600mg Take 1 [facility] 600 mg 07-24 tablet by ity of tablet 00:00: 00:00 mouth [place] 00 :00 every 6 Medical (six) Branch hours as needed (Pain). Take with food or milk. Humulin N No 1unit/m NPH U-100 5-06 L Insulin 00:00: (isophane 00 susp) 100 unit/mL subcutaneou s Humulin R No 1unit/m Regular 5-06 L U-100 00:00: Insulin 100 00 unit/mL injection solution aspirin 81 2020-0 No 1mg mg chewable 5-06 tablet 00:00: 00 metoclopram 2021-0 No 1mg reyna 10 mg 5-06 tablet 00:00: 00 Humulin N 2021-0 No 1unit/m NPH U-100 5-06 L Insulin 00:00: (isophane 00 susp) 100 unit/mL subcutaneou s Humulin R 2021-0 No 1unit/m Regular 5-06 L U-100 00:00: Insulin 100 00 unit/mL injection solution aspirin 81 2020-0 No 1mg mg chewable 5-06 tablet 00:00: 00 metoclopram 1-0 No 1mg reyna 10 mg 5-06 tablet 00:00: 00 Humulin N 2021-0 No 1unit/m NPH U-100 5-06 L Insulin 00:00: (isophane 00 susp) 100 unit/mL subcutaneou s Humulin R 2021-0 No 1unit/m Regular 5-06 L U-100 00:00: Insulin 100 00 unit/mL injection solution aspirin 81 2020-0 No 1mg mg chewable 5-06 tablet 00:00: 00 metoclopram 2021-0 No 1mg reyna 10 mg 5-06 tablet 00:00: 00 Humulin N 2021-0 No 1unit/m NPH U-100 5-06 L Insulin 00:00: (isophane 00 susp) 100 unit/mL subcutaneou s Humulin R 2021-0 No 1unit/m Regular 5-06 L U-100 00:00: Insulin 100 00 unit/mL injection solution aspirin 81 2020-0 No 1mg mg chewable 5-06 tablet 00:00: 00 metoclopram 2021-0 No 1mg reyna 10 mg 5-06 tablet 00:00: 00 Humulin N 2021-0 No 1unit/m NPH U-100 5-06 L Insulin 00:00: (isophane 00 susp) 100 unit/mL subcutaneou s Humulin R 2021-0 No 1unit/m Regular 5-06 L U-100 00:00: Insulin 100 00 unit/mL injection solution aspirin 81 2020-0 No 1mg mg chewable 5-06 tablet 00:00: 00 metoclopram 2021-0 No 1mg reyna 10 mg 5-06 tablet 00:00: 00 ondansetron 2019- No 1mg 8 mg 2-02 disintegrat 00:00: ing tablet 00 ondansetron 2019- No 1mg 8 mg 2- disintegrat 00:00: ing tablet 00 ondansetron 2019- No 1mg 8 mg 2- disintegrat 00:00: ing tablet 00 ondansetron 2019- No 1mg 8 mg 2- disintegrat 00:00: ing tablet 00 ondansetron 2019-11 No 1mg 8 mg 2- disintegrat 00:00: ing tablet 00 Zofran 8 mg 2020-0 No 1mg tablet 7-28 00:00: 00 ibuprofen 2020-0 No 1mg 800 mg 7-28 tablet 00:00: 00 Zofran 8 mg 2020-0 No 1mg tablet 7- 00:00: 00 ibuprofen 2020-0 No 1mg 800 mg 7-28 tablet 00:00: 00 Zofran 8 mg 2020-0 No 1mg tablet 7- 00:00: 00 ibuprofen 2020-0 No 1mg 800 mg 7-28 tablet 00:00: 00 Zofran 8 mg 2020-0 No 1mg tablet 7-28 00:00: 00 ibuprofen 2020-0 No 1mg 800 mg 7-28 tablet 00:00: 00 Zofran 8 mg 2020-0 No 1mg tablet 7-28 00:00: 00 ibuprofen 2020-0 No 1mg 800 mg 7-28 tablet 00:00: 00 Immunizations Ordered Filled Immunization Date Status Comments [facility] [facility] e Immunization Name Name SARS-COV-2 COVID-19 2021-09-20 Completed Unive rsity of PFIZER VACCINE 00:00:00 [facility] TDAP 2021-05-05 Completed [facility] 00:00:00 [facility] SARS-COV-2 COVID-19 2021-03-03 Completed Unive rsity of PFIZER VACCINE 00:00:00 [facility] SARS-COV-2 COVID-19 2021-02-10 Completed Unive rsity of PFIZER VACCINE 00:00:00 [facility] Influenza Virus 2020-12-16 Completed Universit y of Vaccine Quad .5 mL 00:00:00 [facility] 6+ MO Branch Vital Signs Vital Name Observation Time Observation Value Comments Source Systolic blood 2021-09-20 14:34:00 117 mm[Hg] Univer sity of pressure [facility] Diastolic blood 2021-09-20 14:34:00 80 mm[Hg] Unive rsity of [facility] Heart rate 2021-09-20 14:34:00 82 /[facility] 2021-09-20 14:34:00 36.72 [place] [facility] Res[facility] 2021-09-20 14:34:00 18 /min [facility] Body height 2021-09-20 14:34:00 154.9 cm [facility] Body weight 2021-09-20 14:34:00 115.214 kg [facility] BMI 2021-09-20 14:34:00 47.99 kg/m2 [facility] BP Systolic 2022-10-05 13:29:00 126 mm[Hg] BP Diastolic 2022-10-05 13:29:00 80 mm[Hg] Weight Measured 2022-10-05 13:29:00 245.00 pounds Height Measured 2022-10-05 13:29:00 61.81 inches Body Temperature 2022-10-05 13:29:00 97.10 degrees Heart Rate 2022-10-05 13:29:00 98.00 /min Respiratory Rate 2022-10-05 13:29:00 BP Systolic 2022-09-28 13:34:00 111 mm[Hg] BP Diastolic 2022-09-28 13:34:00 70 mm[Hg] Weight Measured 2022-09-28 13:34:00 248.40 pounds Height Measured 2022-09-28 13:34:00 61.81 inches Body Temperature 2022-09-28 13:34:00 97.00 degrees Heart Rate 2022-09-28 13:34:00 82.00 /min Respiratory Rate 2022-09-28 13:34:00 18.00 /min BP Systolic 2022-09-21 13:25:00 115 mm[Hg] BP Diastolic 2022-09-21 13:25:00 66 mm[Hg] Weight Measured 2022-09-21 13:25:00 249.40 pounds Height Measured 2022-09-21 13:25:00 61.81 inches Body Temperature 2022-09-21 13:25:00 97.10 degrees Heart Rate 2022-09-21 13:25:00 85.00 /min Respiratory Rate 2022-09-21 13:25:00 BP Systolic 2022-09-14 17:01:00 127 mm[Hg] BP Diastolic 2022-09-14 17:01:00 68 mm[Hg] Weight Measured 2022-09-14 17:01:00 252.80 pounds Height Measured 2022-09-14 17:01:00 61.81 inches Body Temperature 2022-09-14 17:01:00 97.30 degrees Heart Rate 2022-09-14 17:01:00 90.00 /min Respiratory Rate 2022-09-14 17:01:00 Height Measured 2022-06-07 16:26:00 61.81 inches Body Temperature 2022-06-07 16:26:00 Heart Rate 2022-06-07 16:26:00 Respiratory Rate 2022-06-07 16:26:00 BP Systolic 2022-06-07 16:26:00 BP Diastolic 2022-06-07 16:26:00 Weight Measured 2022-06-07 16:26:00 250.00 pounds BP Systolic 2022-04-25 15:34:00 128 mm[Hg] BP Diastolic 2022-04-25 15:34:00 80 mm[Hg] Weight Measured 2022-04-25 15:34:00 251.40 pounds Height Measured 2022-04-25 15:34:00 61.81 inches Body Temperature 2022-04-25 15:34:00 97.30 degrees Heart Rate 2022-04-25 15:34:00 87.00 /min Respiratory Rate 2022-04-25 15:34:00 BP Systolic 2021-03-25 15:16:00 116 mm[Hg] BP Diastolic 2021-03-25 15:16:00 76 mm[Hg] Weight Measured 2021-03-25 15:16:00 257.20 pounds Height Measured 2021-03-25 15:16:00 61.81 inches Body Temperature 2021-03-25 15:16:00 98.80 degrees Heart Rate 2021-03-25 15:16:00 99.00 /min Respiratory Rate 2021-03-25 15:16:00 17.00 /min BP Systolic 2020-10-21 14:22:00 138 mm[Hg] BP Diastolic 2020-10-21 14:22:00 86 mm[Hg] Weight Measured 2020-10-21 14:22:00 247.00 pounds Height Measured 2020-10-21 14:22:00 61.73 inches Body Temperature 2020-10-21 14:22:00 98.80 degrees Heart Rate 2020-10-21 14:22:00 90.00 /min Respiratory Rate 2020-10-21 14:22:00 17.00 /min BP Systolic 2020-07-30 14:24:00 130 mm[Hg] BP Diastolic 2020-07-30 14:24:00 81 mm[Hg] Weight Measured 2020-07-30 14:24:00 248.40 pounds Height Measured 2020-07-30 14:24:00 61.73 inches Body Temperature 2020-07-30 14:24:00 98.70 degrees Heart Rate 2020-07-30 14:24:00 97.00 /min Respiratory Rate 2020-07-30 14:24:00 16.00 /min BP Systolic 2020-06-16 11:24:00 BP Diastolic 2020-06-16 11:24:00 Weight Measured 2020-06-16 11:24:00 260.00 pounds Height Measured 2020-06-16 11:24:00 61.00 inches Body Temperature 2020-06-16 11:24:00 Heart Rate 2020-06-16 11:24:00 Respiratory Rate 2020-06-16 11:24:00 Procedures Procedure Date / Time Performed Performing Clinician Sour e POCT TEST 2021-09-20 00:00:00 Sophia Ramos [facility] Plan of Care Planned Activity Planned Date Details Comments Source Goal Plan of Care Note [code = 90709-1] Goal Plan of Care Note [code = 17442-6] Goal Plan of Care Note [code = 41424-0] Goal Plan of Care Note [code = 61244-2] Goal Plan of Care Note [code = 65051-6] Goal Plan of Care Note [code = 47373-1] Goal Plan of Care Note [code = 91648-0] Goal Plan of Care Note [code = 06629-7] Goal Plan of Care Note [code = 23688-5] Goal Plan of Care Note [code = 54586-4] Goal Plan of Care Note [code = 83998-7] Goal Plan of Care Note [code = 31427-4] Goal Plan of Care Note [code = 31102-6] Goal Plan of Care Note [code = 31050-1] Goal Plan of Care Note [code = 61170-8] Goal Plan of Care Note [code = 68501-0] Goal Plan of Care Note [code = 59164-7] Goal Plan of Care Note [code = 70629-3] Goal Plan of Care Note [code = 13054-5] Goal Plan of Care Note [code = 62164-1] Goal Plan of Care Note [code = 93005-5] Goal Plan of Care Note [code = 78059-2] Goal Plan of Care Note [code = 21935-5] Goal Plan of Care Note [code = 81215-2] Goal Plan of Care Note [code = 73786-4] Goal Plan of Care Note [code = 24969-9] Goal Plan of Care Note [code = 93457-2] Goal Plan of Care Note [code = 34898-6] Goal Plan of Care Note [code = 85324-9] Goal Plan of Care Note [code = 58484-2] Goal Plan of Care Note [code = 68633-8] Goal Plan of Care Note [code = 21847-1] Goal Plan of Care Note [code = 72570-2] Goal Plan of Care Note [code = 98524-5] Goal Plan of Care Note [code = 61867-3] Goal Plan of Care Note [code = 61613-2] Goal Plan of Care Note [code = 86865-3] Goal Plan of Care Note [code = 95727-3] Goal Plan of Care Note [code = 64935-1] Goal Plan of Care Note [code = 36846-1] Goal Plan of Care Note [code = 43117-5] Goal Plan of Care Note [code = 93578-7] Goal Plan of Care Note [code = 77999-7] Goal Plan of Care Note [code = 45219-5] Goal Plan of Care Note [code = 58067-0] Goal Plan of Care Note [code = 00523-7] Goal Plan of Care Note [code = 51166-4] Goal Plan of Care Note [code = 12343-6] Goal Plan of Care Note [code = 74312-4] Goal Plan of Care Note [code = 07456-0] Goal Plan of Care Note [code = 92191-3] Goal Plan of Care Note [code = 98413-7] Goal Plan of Care Note [code = 12333-7] Goal Plan of Care Note [code = 28066-2] Goal Plan of Care Note [code = 13342-3] Goal Plan of Care Note [code = 18118-6] Goal Plan of Care Note [code = 63333-4] Goal Plan of Care Note [code = 47569-9] Goal Plan of Care Note [code = 06677-5] Goal Plan of Care Note [code = 73322-2] Goal Plan of Care Note [code = 35988-3] Goal Plan of Care Note [code = 78491-3] Goal Plan of Care Note [code = 31206-0] Goal Plan of Care Note [code = 48765-2] Encounters Start End Encounter Admission Attending Care Care Encounter Source Date/Time Date/Time Type Type Clinicians Facility Department ID 2021-09-20 Emergency [facility] [id number] Univers [facility]22 [facility] 2021-09-20 Outpatient P [facility] [id number] Univers 17:05:21 [facility] 2022-10-05 2022-10-05 Outpatient SHAWN ESCOBAR [id number] Yonathan 13:20:03 13:20:03 1116 F Teo 2022-10-05 2022-10-05 Outpatient [id number] q07926-[id number] 00:00:00 00:00:00 Visit x5n3-4r33 4k1-2b85-v -wg93-78y w30-53x4r0 2k7pj7368 fj3668 2022-09-28 2022-09-28 Outpatient SHAWN ESCOBAR [id number] Yonathan 13:33:05 13:33:05 1109 F Teo 2022-09-28 2022-09-28 Outpatient [id number] [id number] 00:00:00 00:00:00 Visit 617f-42f4 17f-42f4-9 -9613-319 613-71111t 88wt4ld20 f8fd79 2022-09-21 2022-09-21 Outpatient [facility] [id number] Yonathan 13:16:31 13:16:31 1102 F Teo 2022-09-21 2022-09-21 Outpatient [id number] 00:00:00 00:00:00 Visit zq0c-748j z8z-375z-k -v0c5-442 1p2-193869 690a0e0o1 b8d2c7 2022-09-14 2022-09-14 Outpatient [facility] [id number] Yonathan 17:00:13 17:00:13 1026 F Teo 2022-09-14 2022-09-14 Outpatient [id number]-[id number] 00:00:00 00:00:00 Visit 29ee-44e7 9ee-44e7-9 -9155-05a 155-05a7c6 1d24cyi12 2ecc27 2022-06-07 2022-06-07 Outpatient [id number]- [id number] dc xkz0eh-r 00:00:00 00:00:00 Visit x608-6605 603-4497-8 -853f-f01 53f-f01b49 h99td5a7w cd3b5a 2022-03-11 2022-03-11 Outpatient [place] [address] [place] 12:15:00 12:15:00 dquist 0422 [facility] 2021-10-11 2021-10-11 Outpatient SOPHIA MAX [facility] [id number] Univers 15:30:00 15:30:00 [facility] 2021-09-20 2021-09-20 Outpatient Yasmin COFFEY [facility] [id number] Univers 10:40:00 10:40:00 MARK [facility] 2021-09-20 2021-09-20 Imm/Inj Nurse, Adc Pob Immunization [facility] 1.2.840.114 [id number] Univers 10:01:19 10:01:29 Visit Tarik Markchristiane DENG 350.1.13 .[address] [facility] [place] [phone] [facility] [address] [facility] 2021-09-20 2021-09-20 Outpatient R SOPHIA RAMOS [facility] [id number] Univers 09:00:00 09:50:24 ity [facility] 2021-09-20 2021-09-20 Office [facility] 1.2.933.256 [id number] Univers 08:58:57 09:50:24 Visit Magdaleno DENG 350.1.13.10 i ty [facility] 4.[place] [phone] [facility] [address] [facility] 2021-09-15 2021-09-[address] [facility] 1.2.088.441 [id number] Univers 00:00:00 00:00:00 Maury DENG 350.1.13.10 i ty of [place] 4.[place].7.[place] [phone] Sd dic[address] 2021-08-27 2021-08-27 Outpatient R SOPHIA RAMOS [facility] [id number] Univers 15:00:00 15:00:00 ity [facility] 2021-08-20 2021-08-20 Routine Richard [facility] 1.2.840.114 [id number] Univers 12:16:35 12:43:55 Magdaleno Willams 350.1.13.10 i ty of [facility] [place] [phone] [address] 2021-08-20 2021-08-20 Outpatient R SOPHIA RAMOS [facility] [id number] Univers 12:15:00 12:15:00 ity [facility] 2021-08-06 2021-08-06 Outpatient R RICHARD [facility] [id number] Univers 14:30:00 14:30:00 ity [facility] 2021-08-05 2021-08-05 Case [facility] 1.2.011.510 [id number] Univers 00:00:00 00:00:00 Management Cam [place] 350.1.13.10 ity of [place] [phone] Sd dic[address] 2021-08-02 2021-08-02 Routine [facility] 1.2.442.513 [id number] Univers 13:56:54 15:08:04 Cam [place] 350.1.13.10 ity of Visit [place].7.[place] [phone] [address] 2021-08-02 2021-08-02 Outpatient R RAMOSSOPHIA [facility] [id number] Univers 14:00:00 14:00:00 ity of [facility] 2021-08-02 2021-08-02 Orders Doctor KENIA 1.2.840.114 [id number] Univers 00:00:00 00:00:00 Only Unassigned, GLORIA 350.1.13.10 ity of [place] [facility] 4.2.7.2.686 Jesse as [phone] [address] 2021-07-27 2021-07-27 Routine Mon[facility]french [facility] 1.2.774.007 [id number] Univers 11:14:29 11:48:13 Maury Deng 350.1.13.10 ity of Visit [place] 4[place] [phone] Sd dic[address] 2021-07-27 2021-07-27 Outpatient R LUBA [facility] [id number] Univers 11:30:00 11:30:00 MAURY ity [facility] 2021-07-27 2021-07-27 Telephone [facility] 1.2.840.114 [id number] Univers 00:00:00 00:00:00 Cam [place] 350.1.13.10 i ty of [place] [phone] Sd dical nal [address] [facility] 2021-07-26 2021-07-26 Nurse KENIA Adamson 1.2.840.114 [id number] Univers 00:00:00 00:00:00 Triage Isabella CASTRO 350.1.13.10 ity of [facility] 4.2.7.2.686 Jesse as [phone] [facility] 019 Branch 2021-07-23 2021-07-25 Hospital [facility] 1.2.840.114 [id number] Univers 17:20:00 20:30:00 Encounter Cam Michelle 350.1.13.10 ity of [place].7.2.[place] [phone] [facility] 083 Branch 2021-07-23 2021-07-23 Surgery [facility] 1.2.867.466 [id number] Univers 18:45:00 20:03:00 Cam Michelle 350.1.13.10 i ty of [place] 4.2.7.2.[place] [phone] [facility] 013 Branch 2021-07-23 2021-07-23 Routine [facility] Kumari 1.2.840.114 [id number] Univers 13:45:42 15:05:55 Cam Imer 350.1.13.10 i ty of Visit [facility] 4[place] [phone] [facility] 134 [address] 2021-07-23 2021-07-23 Outpatient R RICHARD [facility] [id number] Univers 14:00:00 14:00:00 ity of [facility] 2021-07-22 2021-07-22 Refill [facility] 1.2.722.341 [id number] Univers 00:00:00 00:00:00 Cam [place] 350.1.13.10 i ty of [place] 4[place] [phone] Sd dical nal 134 [facility] 2021-07-20 2021-07-20 Telephone [facility] 1.2.840.114 [id number] Univers 00:00:00 00:00:00 Cam [place] 350.1.13.10 i ty of [place] 4[place]2.7.2.[place] [phone] Sd dic[address] 2021-07-15 2021-07-15 Outpatient P STEPHANY [facility] [id number] Univers 15:30:00 15:30:00 GENTILE ity [facility] 2021-07-09 2021-07-10 [facility] Mario [facility] 1.2.840.11 [id number] Univers 19:18:00 03:20:00 Encounter Sophia Ramos [place] 350.1.13.10 ity of [place] 4.[place].7.2.[place] [phone] [address] 2021-07-09 2021-07-09 Outpatient P RADHA [facility] [id number] Univers 13:00:00 13:00:00 HARVEY ity [facility] 2021-07-09 2021-07-09 Outpatient R SOPHIA RAMOS [facility] [id number] Univers 00:00:00 00:00:00 ity [facility] 2021-07-09 2021-07-[address] [facility] 1.2.840.114 [id number] Univers 00:00:00 00:00:00 Magdaleno [place] 350.1.13.10 i ty of [place] [phone] [address] 2021-07-09 2021-07-[address] [facility] 1.2.512.214 [id number] Univers 00:00:00 00:00:00 Cam [place] 350.1.13.10 i ty of [place] 4[place].2.[place] [phone] Sd dic[address] 2021-07-08 2021-07-08 Routine Room, [facility] 1.2.840.1 14 [id number] Univers 13:57:22 15:35:53 Sophia Ramoston 350.1.13.10 ity of Visit [place] 4[place].7.2.[place] [phone] Sd dical nal [address] [place] [address] 2021-07-08 2021-07-08 Outpatient R [facility] [id number] Univers 14:00:00 14:00:00 ity of [facility] 2021-07-06 2021-07-[address] [facility] 1.2.840.11 [id number] Univers 14:58:44 15:44:11 Sophia Ramos Michelle 350.1.13.10 ity of [place] 4.2.7.2.[place] [phone] Sd dical nal [address] [place] [address] 2021-07-06 2021-07-06 Outpatient R SOPHIA RAMOS [facility] [id number] Univers 09:45:00 09:45:00 ity of [facility] 2021-07-06 2021-07-[address] 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 1.2 .840.114 [id number] Univers 14:55:13 15:25:13 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 350.1.13.10 ity of Narayanan Harvey Kaiden [place] 4.2.7.2.686 [place] Professio [phone] Sd dical nal [address] [place] [address] 2021-07-01 2021-07-01 Routine Room, [facility] 1.2.840.1 14 [id number] Univers 13:57:30 14:54:38 RichardSophia Magdaleno Deng 350.1.13.10 ity of [place] 4[place]2.7.2.[place] [phone] Sd dical [address] 2021-07-01 2021-07-01 Outpatient R [facility] [id number] Univers 14:00:00 14:00:00 ity of [facility] 2021-06-24 2021-06-24 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 1.2 .840.114 [id number] Univers 14:37:14 15:07:14 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 [place] 350.1.13.10 ity of Joaquin Granger [place] 4.2.7.2.686 [place] Professio [phone] Sd dical [address] 2021-06-24 2021-06-24 Routine Room, [facility] 1.2.840.1 14 [id number] Univers 13:54:48 14:36:35 Sophia Ramos Magdaleno [place] 350.1.13.10 ity of [place] 4.2.7.2.[place] [phone] Sd dic[address] 2021-06-24 2021-06-24 Outpatient R [facility] [id number] Univers 14:00:00 14:00:00 ity of [facility] 2021-06-17 2021-06-17 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 1.2 .840.114 [id number] Univers 15:06:21 15:36:21 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 [place] 350.1.13.10 ity of [place] 4[place]2.7.2.[place] [phone] Sd dical [address] 2021-06-17 2021-06-17 Routine Room, [facility] 1.2.840.1 14 [id number] Univers 13:55:34 15:05:51 Sophia Ramos [place] 350.1.13.10 ity of [place] 4[place]2.[place].2.[place] [phone] Sd dical [address] 2021-06-17 2021-06-17 Outpatient R [facility] [id number] Univers 14:00:00 14:00:00 ity of [facility] 2021-06-10 2021-06-10 Routine Room, [facility] 1.2.840.1 14 [id number] Univers 13:50:29 16:04:58 Sophia Ramos 350.1.13.10 ity of [place] 4[place] [phone] Sd dic[address] 2021-06-10 2021-06-10 Outpatient R [facility] [id number] Univers 14:00:00 14:00:00 ity of [facility] 2021-06-08 2021-06-08 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 1.2.587.406 [id number] Univers 00:00:00 00:00:00 Management Magdaleno Deng 350.1.13.10 ity of [place] [phone] Sd dicmi nal [address] [place] [address] 2021-06-03 2021-06-[address] [facility] 1.2.128.521 [id number] Univers 16:06:13 17:17:00 Magdaleno [place] 350.1.13.10 ity of [place] 4[place].2.[place] [phone] Sd dical nal [address] [place] [address] 2021-06-03 2021-06-03 Outpatient R SOPHIA RAMOS [facility] [id number] Univers 16:15:00 16:15:00 ity of [facility] 2021-05-17 2021-05-17 Gas Roller Operator Ultrasound, JasbirMfm 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 1.2.531.022 [id number] Univers 16:01:04 17:03:26 Cam [place] 350.1.13.10 ity of [place] 4[place].2.[place] [phone] Sd dical [address] 2021-05-05 2021-05-05 Outpatient R SOPHIA RAMOS [facility] [id number] Univers 16:15:00 16:15:00 ity of [facility] 2021-05-05 2021-05-05 Orders Doctor AQUINO 1.2.840.114 [id number] Univers 00:00:00 00:00:00 Only Unassigned, GLORIA 350.1.13.10 ity of [place] [facility] 4.2.7.2.686 Jesse as [phone] [address] 2021-04-22 2021-04-22 Gas Roller Operator 2, Jeimy Lab [facility] 1.2.840.114 [id number] Univers 14:59:06 15:14:06 Visit Ting Ornelas 350.1.13. 10 ity of Sophia Ramos [place] 4.2.7.2.686 [place] Profess[facility] [phone] Sd dical nal 353 [facility] 2021-04-22 2021-04-[address] [facility] 1.2.840.114 [id number] Univers 13:33:27 14:47:33 Visit Ting Deng 350.1.13.10 ity [place]2.[place] [phone] [facility] 059 [facility] 2021-04-22 2021-04-22 Outpatient R [facility] [id number] Univers 14:00:00 14:00:00 SENDIL ity of [facility] 2021-04-21 2021-04-[address] [facility] [id number] Univers 15:33:13 16:44:19 Magdaleno Deng 350.1.13.10 ity of [place] 4[place]7.2.[place] [phone] [place] dical nal 134 [facility] 2021-04-21 2021-04-21 Outpatient R SOPHIA RAMOS [facility] [id number] Univers 16:00:00 16:00:00 ity of [facility] 2021-04-14 2021-04-[address] [facility] 1.2.840.114 [id number] Univers 00:00:00 00:00:00 Magdaleno Deng 350.1.13.10 i [place].2.[place] [phone] [place] dical nal 134 [facility] 2021-04-13 2021-04-13 Gas Roller Operator Lorna, Sonia [facility] 1.2 .840.114 [id number] Univers 14:47:35 15:17:35 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 Maximino TOOLROOM MACHINIST 350.1.13.10 ity of [facility] 4.2.7.2.686 Jesse as MATERNAL [phone] Med ical & CHILD [address] [place] [address] 2021-04-13 2021-04-13 Outpatient P [facility] [id number] Univers 15:00:00 15:00:00 ity of [facility] 2021-04-01 2021-04-01 Outpatient R [facility] [id number] Univers 16:00:00 16:00:00 SENDIL ity [facility] 2021-03-27 2021-03-27 Nurse Joleen Ren 1.2.840.114 [id number] Univers 00:00:00 00:00:00 Triage GLORIA 350.1.13.10 it y of [facility] 4.2.7.2.686 Jesse as [phone] [facility] [address] [place] 2021-03-24 2021-03-[address] [facility] 1.2.320.801 [id number] Univers 15:57:14 16:52:15 [place] 350.1.13.10 ity of [place] [phone] [place] dical nal [address] [place] [address] 2021-03-24 2021-03-24 Outpatient R SOPHIA RAMOS [facility] [id number] Univers 16:00:00 16:00:00 ity of [facility] 2021-03-19 2021-03-19 Outpatient R [facility] [id number] Univers 16:00:00 16:00:00 SENDIL ity [facility] 2021-03-19 2021-03-19 Orders Doctor AQUINO 1.2.840.114 [id number] Univers 00:00:00 00:00:00 Only Unassigned, GLORIA 350.1.13.10 ity of [place] [facility] 4.2.7.2.686 Jesse as [phone] [facility] [address] [place] 2021-03-16 2021-03-[address] [facility] 1.2.840.114 [id number] Univers 00:00:00 00:00:00 Cam Michelle 350.1.13.10 i [place] [phone] Sd dical nal 134 [facility] 2021-03-15 2021-03-15 Gas Roller Operator Ultrasound, Sonia 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.1.13.10 ity of REGIONAL 4.2.7.2.686 Jesse as MATERNAL [phone] Med ical & CHILD [address] [place] [address] 2021-03-15 2021-03-15 Outpatient P [facility] [id number] Univers 14:00:00 14:00:00 ity of [facility] 2021-03-11 2021-03-11 [facility] 1.2.840.114 [id number] Univers 14:27:16 15:29:48 Visit Sendil Daisha Deng 350.1.13.10 ity of [place] [phone] Sd dicmi nal 059 [facility] 2021-03-11 2021-03-11 Outpatient R [facility] [id number] Univers 14:30:00 14:30:00 SENDIL ity of [facility] 2021-03-10 2021-03-10 Routine [facility] 1.2.979.008 [id number] Univers 15:31:10 16:51:56 Cam Michelle 350.1.13.10 ity [place] [phone] Sd dical nal 134 [facility] 2021-03-10 2021-03-10 Outpatient R SOPHIA RAMOS [facility] [id number] Univers 15:30:00 15:30:00 ity of [facility] 2021-03-03 2021-03-03 Outpatient R ONUR [facility] [id number] Univers 16:10:00 16:10:00 ANNABELLE ity of [facility] 2021-03-01 2021-03-[address] [facility] 1.2.840.114 [id number] Univers 00:00:00 00:00:00 [place] 350.1.13.10 i ty [place] [phone] Sd dical nal 134 [facility] 2021-02-26 2021-02-[address] 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 1.2.840.114 [id number] Univers 16:06:42 16:21:42 Visit Raheem Ramosirma [place] 350.1.13.10 ity of [place] [phone] Sd dical nal 353 [facility] 2021-02-25 2021-02-[address] [facility] 1.2.062.174 [id number] Univers 15:09:20 15:59:18 [place] 350.1.13.10 ity of [place] [phone] Sd dical nal 134 [facility] 2021-02-25 2021-02-25 Outpatient R RICHARD SOPHIA [facility] [id number] Univers 15:15:00 15:15:00 ity of [facility] 2021-02-25 2021-02-[address] [facility] 1.2.283.068 [id number] Univers 00:00:00 00:00:00 Management [place] 350.1.13.10 ity of [place] [phone] Sd dical nal 134 [facility] 2021-02-24 2021-02-24 Orders Doctor KENIA 1.2.840.114 [id number] Univers 00:00:00 00:00:00 Only Unassigned, GLORIA 350.1.13.10 ity of [place] [facility] 4.2.7.2.686 Jesse as [phone] [address] 2021-02-23 2021-02-[address] [facility] 1.2.840.114 [id number] Univers 00:00:00 00:00:00 [place] 350.1.13.10 i ty of [place].2.[place] [phone] Sd dical nal [address] [place] [address] 2021-02-23 2021-02-23 Telephone Sophia Ramos 1.2.840.114 [id number] Univers 00:00:00 00:00:00 [place] 350.1.13.10 i ty of [place].7.2.[place] [phone] Sd dical nal [address] [place] [address] 2021-02-17 2021-02-17 Case Sophia Ramos FLLARRY 1.2.310.474 [id number] Univers 00:00:00 00:00:00 Management [place] 350.1.13.10 ity of [place].2.[place] [phone] Sd dical nal [address] [place] [address] 2021-02-11 2021-02-11 Telephone Sophia Ramos 1.2.840.114 [id number] Univers 00:00:00 00:00:00 [place] 350.1.13.10 i ty of [place].2.[place] [phone] Sd dical nal [address] [place] [address] 2021-02-10 2021-02-10 Outpatient R SOPHIA RAMOS [facility] [id number] Univers 15:30:00 15:30:00 ity of [facility] 2021-02-10 2021-02-10 Office Sophia Ramos FLLARRY 1.2.928.123 0001 [id number] [facility] 13:37:36 14:45:28 Visit [place] 350.1.13.10 i ty of [place] [phone] Sd dical nal 134 [facility] 2021-02-10 2021-02-10 Outpatient R ONUR [facility] [id number] Univers 13:00:00 13:00:00 ANNABELLE ity of [facility] 2021-02-10 2021-02-10 [facility] 1.2.840.114 [id number] Univers 00:00:00 00:00:00 Magdaleno Deng 350.1.13.10 i ty of [place] [phone] Sd dical nal [address] [place] [address] 2021-02-10 2021-02-[address] [facility] 1.2.840.114 [id number] Univers 00:00:00 00:00:00 Magdaleno Deng 350.1.13.10 i ty of [place].2.[place] [phone] Sd dical nal [address] [place] [address] 2021-02-10 2021-02-[address] 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 1.2.840.114 [id number] Univers 11:53:30 12:08:30 Visit Sophia Ramos 350.1.13.10 ity of [place] [phone] Sd dical nal 353 [facility] 2021-01-27 2021-01-[address] [facility] 1.2.328.907 [id number] Univers 10:10:43 11:29:11 Magdaleno Deng 350.1.13.10 ity of [place] [phone] Sd dical nal 134 [facility] 2021-01-27 2021-01-27 Outpatient R SOPHIA RAMOS [facility] [id number] Univers 11:00:00 11:00:00 ity of [facility] 2021-01-27 2021-01-27 Orders Doctor KENIA 1.2.840.114 [id number] Univers 00:00:00 00:00:00 Only Unassigned, GLORIA 350.1.13.10 ity of [place] [facility] 4.2.7.2.686 Jesse as [phone] [address] 2021-01-14 2021-01-14 Outpatient R SOPHIA RAMOS [facility] [id number] Univers 15:45:00 15:45:00 ity of [facility] 2020-12-31 2020-12-31 [facility] 1.2.441.396 [id number] Univers 14:46:32 15:39:50 Maury Deng 350.1.13.10 ity of [place] [phone] Sd dical nal [address] [place] [address] 2020-12-31 2020-12-31 Outpatient R LUBA [facility] [id number] Univers 14:45:00 14:45:00 MAURY ity of [facility] 2020-12-25 2020-12-25 Nurse Nurse, [facility] 1.2.840.114 [id number] Univers 15:33:50 16:29:38 Visit RamosSophia Magdaleno Deng 350.1.13.10 ity of [place] [phone] Sd dical nal 134 [facility] 2020-12-25 2020-12-25 Outpatient R [facility] [id number] Univers 15:30:00 15:30:00 ity of [facility] 2020-12-24 2020-12-24 Outpatient R [facility] [id number] Univers 15:30:00 15:30:00 ity of [facility] 2020-12-22 2020-12-22 Outpatient R [facility] [id number] Univers 14:30:00 14:30:00 ity of [facility] 2020-12-18 2020-12-18 Outpatient R [facility] [id number] Univers 10:30:00 10:30:00 ity of [facility] 2020-12-18 2020-12-18 Nurse Joleen Ren 1.2.840.114 [id number] Univers 00:00:00 00:00:00 Triage GLORIA 350.1.13.10 it y of HOSPITAL 4.2.7.2.686 Jesse as [phone] [facility] [address] [place] 2020-12-16 2020-12-[address] [facility] 1.2.971.472 [id number] Univers 16:39:06 17:38:51 Cam Michelle 350.1.13.10 ity of [place] [phone] Sd dical [facility] 134 [facility] 2020-12-16 2020-12-16 Outpatient R SOPHIA RAMOS [facility] [id number] Univers 16:00:00 16:00:00 ity of [facility] 2020-12-16 2020-12-16 Orders Doctor AQUINO 1.2.840.114 [id number] Univers 00:00:00 00:00:00 Only Unassigned, GLORIA 350.1.13.10 ity of [place] [facility]OSPITAL 4.2.7.2.686 Jesse as [phone] [facility] [address] [place] 2020-12-11 2020-12-11 Nurse Nurse, [facility] 1.2.840.114 [id number] Univers 10:25:46 11:10:23 Visit Sophia Ramos 350.1.13.10 ity of [place]2.[place] [phone] Sd dical nal 134 [facility] 2020-12-11 2020-12-11 Outpatient R [facility] [id number] Univers 10:30:00 10:30:00 ity of [facility] 2020-12-08 2020-12-08 Outpatient R LUBA [facility] [id number] Univers 14:15:00 14:15:00 MAURY ity [facility] 2020-12-08 2020-12-08 Gas Roller Operator Da, Adc Lab Main [facility] 1.2.8 40.114 [id number] Univers 13:51:56 14:06:56 Visit Maury Verduzco 350.1.13.10 ity [place] [phone] [facility] 353 [facility] 2020-12-08 2020-12-08 Orders Doctor KENIA 1.2.840.114 [id number] Univers 00:00:00 00:00:00 Only Unassigned, GLORIA 350.1.13.10 [facility] Jesse as [phone] [address] 2020-12-04 2020-12-04 Outpatient R [facility] [id number] Univers 16:15:00 16:15:00 ity of [facility] 2020-12-04 2020-12-04 Outpatient R [facility] [id number] Univers 11:45:00 11:45:00 ity of [facility] 2020-12-04 2020-12-04 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 1.2.840.114 [id number] Univers 10:19:13 10:34:13 Visit Sophia Ramos 350.1.13.10 ity [facility] [place].2.7.2.[place] [phone] Sd dical [facility] 353 [facility] 2020-12-03 2020-12-[address] 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 [facility] 1.2.840.114 [id number] Univers 16:12:37 16:27:37 Visit Sophia Ramos 350.1.13.10 ity of [place] 4[place].7.2.[place] [phone] Sd dical nal 353 [facility] 2020-12-02 2020-12-02 Outpatient R RAMOS SOPHIA [facility] [id number] Univers 16:15:00 16:15:00 ity of [facility] 2020-11-30 2020-11-30 Gas Roller Operator Da, Adc Lab Main [place] 1.2.8 40.114 [id number] Univers 16:33:32 16:48:32 Visit Sophia Ramos Michelle 350.1.13.10 ity of [place].2.[place] [phone] Sd dical nal 353 [facility] 2020-11-30 2020-11-[address] [facility] 1.2.840.11 [id number] Univers 14:37:02 16:22:07 Sophia Ramos 350.1.13.10 ity of [place].2.[place] [phone] Sd dical nal 134 [facility] 2020-11-30 2020-11-30 Outpatient R RAHEEM RAMOSEN [facility] [id number] Univers 14:30:00 14:30:00 ity of [facility] 2020-11-30 2020-11-30 Orders Doctor AQUINO 1.2.840.114 [id number] Univers 00:00:00 00:00:00 Only Unassigned, GLORIA 350.1.13.10 ity of [place] [facility]ITAL 4.2.7.2.686 Jesse as [phone] [address] 2020-11-30 2020-11-30 Case Luba FLLARRY 1.2.428.361 [id number] Univers 00:00:00 00:00:00 Management Maury Deng 350.1.13.10 [place] 4.2.7.2.686 [place]a grande duncanjefry [phone] Sd dical nal 134 [facility] 2020-10-07 2020-10-07 Outpatient G_Pappas [facility] [id number] [place] 02:45:00 02:45:00 1118 [facility] Results Test Description Test Time Test Comments Results Result Comments Source COMPREHENSIVE METABOLIC PANEL 2022-09-22 00:00:00 Test Item Value Reference Range Interpretation Comme nts GLUCOSE (test code = 2217) 185 MG/DL BUN (test code = 2208) 14 MG/DL CREATININE (test code = 2214) 0.51 MG/DL eGFR (2020 CKD-EPI) (test code = 49492) 129 ML/MIN/1.73 CALC BUN/CREAT (test code = 2235) 27 RATIO SODIUM (test code = 2231) 141 MEQ/L POTASSIUM (test code = 2228) 4.8 MEQ/L CHLORIDE (test code = 2215) 103 MEQ/L CARBON DIOXIDE (test code = 2206) 26 MEQ/L CALCIUM (test code = 2209) 9.2 MG/DL PROTEIN, TOTAL (test code = 2229) 7.2 G/DL ALBUMIN (test code = 2201) 4.6 G/DL CALC GLOBULIN (test code = 2240) 2.6 G/DL CALC A/G RATIO (test code = 2234) 1.8 RATIO BILIRUBIN, TOTAL (test code = 2207) 0.4 MG/DL ALKALINE PHOSPHATASE (test code = 2204) 88 U/L AST (test code = 2218) 30 U/L ALT (test code = 2219) 46 U/L COMPREHENSIVE METABOLIC [id number] 00:00:00 Test Item Value Reference Range Interpretation Comments GLUCOSE (test code = 2217) 185 MG/DL BUN (test code = 2208) 14 MG/DL CREATININE (test code = 2214) 0.51 MG/DL eGFR (2020 CKD-EPI) (test 129 ML/MIN/1.73 code = 22339) CALC BUN/CREAT (test code = 27 RATIO 2235) SODIUM (test code = 2231) 141 MEQ/L POTASSIUM (test code = 2228) 4.8 MEQ/L CHLORIDE (test code = 2215) 103 MEQ/L CARBON DIOXIDE (test code = 26 MEQ/L 2205) CALCIUM (test code = 2209) 9.2 MG/DL PROTEIN, TOTAL (test code = 7.2 G/DL 2228) ALBUMIN (test code = 2201) 4.6 G/DL CALC GLOBULIN (test code = 2.6 G/DL 2239) CALC A/G RATIO (test code = 1.8 RATIO 4) BILIRUBIN, TOTAL (test code = 0.4 MG/DL 2206) ALKALINE PHOSPHATASE (test 88 U/L code = 2204) AST (test code = 2218) 30 U/L ALT (test code = 2219) 46 U/L LIPID [id number] 00:00:00 Test Item Value Reference Range Interpretation Comments CHOLESTEROL (test code = 2210) 149 MG/DL TRIGLYCERIDES (test code = 2232) 123 MG/DL HDL CHOLESTEROL (test code = 2220) 41 MG/DL CALC LDL CHOL (test code = 2237) 86 MG/DL RISK RATIO LDL/HDL (test code = 2.10 RATIO 2238) LIPID [id number] 00:00:00 Test Item Value Reference Range Interpretation Comments CHOLESTEROL (test code = 2210) 149 MG/DL TRIGLYCERIDES (test code = 2232) 123 MG/DL HDL CHOLESTEROL (test code = 2220) 41 MG/DL CALC LDL CHOL (test code = 2237) 86 MG/DL RISK RATIO LDL/HDL (test code = 2.10 RATIO 2238) HEMOGLOBIN [id number] 00:00:00 Test Item Value Reference Range Interpretation Comments HEMOGLOBIN A1c (test code = 39617) 6.6 % HEMOGLOBIN [id number] 00:00:00 Test Item Value Reference Range Interpretation Comments HEMOGLOBIN A1c (test code = 23993) 6.6 % HEMOGLOBIN [id number] 00:00:00 Test Item Value Reference Range Interpretation Comments HEMOGLOBIN A1c (test code = 30502) 6.6 % COMPREHENSIVE METABOLIC [id number] 00:00:00 Test Item Value Reference Range Interpretation Comments GLUCOSE (test code = 2217) 185 MG/DL BUN (test code = 2208) 14 MG/DL CREATININE (test code = 2214) 0.51 MG/DL eGFR (2020 CKD-EPI) (test 129 ML/MIN/1.73 code = 42286) CALC BUN/CREAT (test code = 27 RATIO 2235) SODIUM (test code = 2231) 141 MEQ/L POTASSIUM (test code = 2228) 4.8 MEQ/L CHLORIDE (test code = 2215) 103 MEQ/L CARBON DIOXIDE (test code = 26 MEQ/L 2206) CALCIUM (test code = 2209) 9.2 MG/DL PROTEIN, TOTAL (test code = 7.2 G/DL 222) ALBUMIN (test code = 2201) 4.6 G/DL CALC GLOBULIN (test code = 2.6 G/DL 2240) CALC A/G RATIO (test code = 1.8 RATIO 2234) BILIRUBIN, TOTAL (test code = 0.4 MG/DL 2206) ALKALINE PHOSPHATASE (test 88 U/L code = 2204) AST (test code = 2218) 30 U/L ALT (test code = 2219) 46 U/L COMPREHENSIVE METABOLIC [id number] 00:00:00 Test Item Value Reference Range Interpretation Comments GLUCOSE (test code = 2217) 185 MG/DL BUN (test code = 2208) 14 MG/DL CREATININE (test code = 2214) 0.51 MG/DL eGFR (2020 CKD-EPI) (test 129 ML/MIN/1.73 code = 86982) CALC BUN/CREAT (test code = 27 RATIO 2235) SODIUM (test code = 2231) 141 MEQ/L POTASSIUM (test code = 2228) 4.8 MEQ/L CHLORIDE (test code = 2215) 103 MEQ/L CARBON DIOXIDE (test code = 26 MEQ/L 2206) CALCIUM (test code = 2209) 9.2 MG/DL PROTEIN, TOTAL (test code = 7.2 G/DL 2229) ALBUMIN (test code = 2201) 4.6 G/DL CALC GLOBULIN (test code = 2.6 G/DL 2240) CALC A/G RATIO (test code = 1.8 RATIO 2234) BILIRUBIN, TOTAL (test code = 0.4 MG/DL 2206) ALKALINE PHOSPHATASE (test 88 U/L code = 2204) AST (test code = 2218) 30 U/L ALT (test code = 2219) 46 U/L LIPID [id number] 00:00:00 Test Item Value Reference Range Interpretation Comments CHOLESTEROL (test code = 2210) 149 MG/DL TRIGLYCERIDES (test code = 2232) 123 MG/DL HDL CHOLESTEROL (test code = 2220) 41 MG/DL CALC LDL CHOL (test code = 2237) 86 MG/DL RISK RATIO LDL/HDL (test code = 2.10 RATIO 2238) LIPID [id number] 00:00:00 Test Item Value Reference Range Interpretation Comments CHOLESTEROL (test code = 2210) 149 MG/DL TRIGLYCERIDES (test code = 2232) 123 MG/DL HDL CHOLESTEROL (test code = 2220) 41 MG/DL CALC LDL CHOL (test code = 2237) 86 MG/DL RISK RATIO LDL/HDL (test code = 2.10 RATIO 2238) HEMOGLOBIN [id number] 00:00:00 Test Item Value Reference Range Interpretation Comments HEMOGLOBIN A1c (test code = 81950) 6.6 % HEMOGLOBIN [id number] 00:00:00 Test Item Value Reference Range Interpretation Comments HEMOGLOBIN A1c (test code = 27630) 6.6 % HEMOGLOBIN [id number] 00:00:00 Test Item Value Reference Range Interpretation Comments HEMOGLOBIN A1c (test code = 78759) 6.6 % [id number] 06:57:37 Test Item Value Reference Range Interpretation Comments INSULIN (test code = 26 UIU/ML 2-21 H Note: Reference 79139) interval repres ents standard fastin g reference range . HEMOGLOBIN [id number] 06:29:49 Test Item Value Reference Range Interpretation Comments HEMOGLOBIN A1c (test 9.3 % 4.2-5.6 H AMERIC AN DIABETES code = 22780) ASSOCIATION IDELINES FOR HGB A1C: PREDIABETES/INC REASED RISK . . . . . . . 5.7 -6.4% DIAGNOSIS OF DI ABETES . . . . . . . . . >=6 .5% WITH CONFIRMATION OR APPROPRIATE SYMPTOMS NOTE: ASSAY MAY BE AFFECTED BY HEMOGLOBINOPATH IES (SICKLE CELL ANEMIA, S- C DISEASE, OTHERS) OR JUAREZ FICIALLY LOWERED BY DECR EASED RED CELL SURVIVAL ( HEMOLYTIC ANEMIAS, BLOOD LOSS, ETC.). CONSIDER ALTERN ATE TESTING OR LABORATORY C ONSULTATION. LIPID [id number] 05:02:33 Test Item Value Reference Range Interpretation Comments CHOLESTEROL (test 162 MG/DL <200 code = 2210) TRIGLYCERIDES (test 95 MG/DL <150 code = 2232) HDL CHOLESTEROL (test 44 MG/DL >39 code = 2220) CALC LDL CHOL (test 99 MG/DL <100 NOTE: C ALCULATED LDL code = 2237) IS BASED ON JAXON-PATEL METHOD WHICHINCLUDES ADJUSTABLE TRIGLYCERIDE:VL DL CHOLESTEROL RAT IO.THIS FACTOR VARIES B Y MEASURED TRIGLY CERIDE AND NON-HDLCHOL ESTEROL CONCENTRATIONS WITH INCREASED CALCU LATED LDL SEENIN HIGH ER TRIGLYCERIDE OR LOWER NON-HDL SPECIME NS. FOR MOREINFORMATION , SEE CLIENT ANNOUNCE MENT AT [email or web address] [email or web address] RATIO LDL/HDL 2.25 RATIO <3.22 (test code = 2238) COMPREHENSIVE METABOLIC [id number] 05:02:33 Test Item Value Reference Range Interpretation Comments GLUCOSE (test code = 239 MG/DL 70-99 H 2216) BUN (test code = 13 MG/DL 6-20 2207) CREATININE (test 0.40 MG/DL 0.60-1.30 L code = 2214) eGFR (2020 CKD-EPI) 137 >60 (test code = 08865) ML/MIN/1.73 CALC BUN/CREAT (test 33 RATIO 6-28 H code = 2235) SODIUM (test code = 138 MEQ/L 585-849 4986) POTASSIUM (test code 4.8 MEQ/L 3.5-5.4 = 222) CHLORIDE (test code 100 MEQ/L 95-107 = 2215) CARBON DIOXIDE (test 24 MEQ/L 19-31 code = 2206) CALCIUM (test code = 10.1 MG/DL 8.5-10.5 2208) PROTEIN, TOTAL (test 7.7 G/DL 6.1-8.3 code = 2229) ALBUMIN (test code = 4.5 G/DL 3.5-5.2 2200) CALC GLOBULIN (test 3.2 G/DL 1.9-3.7 code = 2240) CALC A/G RATIO (test 1.4 RATIO 1.0-2.6 code = 2234) BILIRUBIN, TOTAL 0.3 MG/DL See_Comment [Automated message] (test code = 2207) The [employer] which generated this result transmitted ref erence range: <=1.2. T he reference range was not used to int erpret this result as normal/abnormal . ALKALINE PHOSPHATASE 117 U/L 40-112 H (test code = 2204) AST (test code = 42 U/L 9-40 H 2217) ALT (test code = 54 U/L 5-40 H UNLESS OTH ERWISE 9) INDICATED, ALL TESTING PERFORM [facility], [facility]. [address] [place], [place] [id number] [place] [address] DIRECTOR: OZ PISANO M.D. CLIA NUMBER [id number] CAP ACCREDITATION N O. [id number] 00:00:00 Test Item Value Reference Range Interpretation Comments INSULIN (test code = 89438) 26 UIU/ML [id number] 00:00:00 Test Item Value Reference Range Interpretation Comments INSULIN (test code = 03602) 26 UIU/ML LIPID [id number] 00:00:00 Test Item Value Reference Range Interpretation Comments CHOLESTEROL (test code = 2210) 162 MG/DL TRIGLYCERIDES (test code = 2232) 95 MG/DL HDL CHOLESTEROL (test code = 2220) 44 MG/DL CALC LDL CHOL (test code = 2237) 99 MG/DL RISK RATIO LDL/HDL (test code = 2.25 RATIO 2238) LIPID [id number] 00:00:00 Test Item Value Reference Range Interpretation Comments CHOLESTEROL (test code = 2210) 162 MG/DL TRIGLYCERIDES (test code = 2232) 95 MG/DL HDL CHOLESTEROL (test code = 2220) 44 MG/DL CALC LDL CHOL (test code = 2237) 99 MG/DL RISK RATIO LDL/HDL (test code = 2.25 RATIO 2238) HEMOGLOBIN [id number] 00:00:00 Test Item Value Reference Range Interpretation Comments HEMOGLOBIN A1c (test code = 79430) 9.3 % HEMOGLOBIN [id number] 00:00:00 Test Item Value Reference Range Interpretation Comments HEMOGLOBIN A1c (test code = 01018) 9.3 % HEMOGLOBIN [id number] 00:00:00 Test Item Value Reference Range Interpretation Comments HEMOGLOBIN A1c (test code = 63565) 9.3 % COMPREHENSIVE METABOLIC [id number] 00:00:00 Test Item Value Reference Range Interpretation Comments GLUCOSE (test code = 2217) 239 MG/DL BUN (test code = 2208) 13 MG/DL CREATININE (test code = 2214) 0.40 MG/DL eGFR (2020 CKD-EPI) (test 137 ML/MIN/1.73 code = 54938) CALC BUN/CREAT (test code = 33 RATIO 2235) SODIUM (test code = 2231) 138 MEQ/L POTASSIUM (test code = 2228) 4.8 MEQ/L CHLORIDE (test code = 2215) 100 MEQ/L CARBON DIOXIDE (test code = 24 MEQ/L 2205) CALCIUM (test code = 2209) 10.1 MG/DL PROTEIN, TOTAL (test code = 7.7 G/DL 2228) ALBUMIN (test code = 2201) 4.5 G/DL CALC GLOBULIN (test code = 3.2 G/DL 2240) CALC A/G RATIO (test code = 1.4 RATIO 2234) BILIRUBIN, TOTAL (test code = 0.3 MG/DL 2206) ALKALINE PHOSPHATASE (test 117 U/L code = 2204) AST (test code = 2218) 42 U/L ALT (test code = 2219) 54 U/L COMPREHENSIVE METABOLIC [id number] 00:00:00 Test Item Value Reference Range Interpretation Comments GLUCOSE (test code = 2217) 239 MG/DL BUN (test code = 2208) 13 MG/DL CREATININE (test code = 2214) 0.40 MG/DL eGFR (2020 CKD-EPI) (test 137 ML/MIN/1.73 code = 15542) CALC BUN/CREAT (test code = 33 RATIO 2235) SODIUM (test code = 2231) 138 MEQ/L POTASSIUM (test code = 2228) 4.8 MEQ/L CHLORIDE (test code = 2215) 100 MEQ/L CARBON DIOXIDE (test code = 24 MEQ/L 2205) CALCIUM (test code = 2209) 10.1 MG/DL PROTEIN, TOTAL (test code = 7.7 G/DL 2228) ALBUMIN (test code = 2201) 4.5 G/DL CALC GLOBULIN (test code = 3.2 G/DL 2240) CALC A/G RATIO (test code = 1.4 RATIO 2234) BILIRUBIN, TOTAL (test code = 0.3 MG/DL 2206) ALKALINE PHOSPHATASE (test 117 U/L code = 2204) AST (test code = 2218) 42 U/L ALT (test code = 2219) 54 U/L [id number] 00:00:00 Test Item Value Reference Range Interpretation Comments INSULIN (test code = 75099) 26 UIU/ML [id number] 00:00:00 Test Item Value Reference Range Interpretation Comments INSULIN (test code = 96859) 26 UIU/ML LIPID [id number] 00:00:00 Test Item Value Reference Range Interpretation Comments CHOLESTEROL (test code = 2210) 162 MG/DL TRIGLYCERIDES (test code = 2232) 95 MG/DL HDL CHOLESTEROL (test code = 2220) 44 MG/DL CALC LDL CHOL (test code = 2237) 99 MG/DL RISK RATIO LDL/HDL (test code = 2.25 RATIO 2238) LIPID [id number] 00:00:00 Test Item Value Reference Range Interpretation Comments CHOLESTEROL (test code = 2210) 162 MG/DL TRIGLYCERIDES (test code = 2232) 95 MG/DL HDL CHOLESTEROL (test code = 2220) 44 MG/DL CALC LDL CHOL (test code = 2237) 99 MG/DL RISK RATIO LDL/HDL (test code = 2.25 RATIO 2238) HEMOGLOBIN [id number] 00:00:00 Test Item Value Reference Range Interpretation Comments HEMOGLOBIN A1c (test code = 90834) 9.3 % HEMOGLOBIN [id number] 00:00:00 Test Item Value Reference Range Interpretation Comments HEMOGLOBIN A1c (test code = 32487) 9.3 % HEMOGLOBIN [id number] 00:00:00 Test Item Value Reference Range Interpretation Comments HEMOGLOBIN A1c (test code = 38988) 9.3 % COMPREHENSIVE METABOLIC [id number] 00:00:00 Test Item Value Reference Range Interpretation Comments GLUCOSE (test code = 2217) 239 MG/DL BUN (test code = 2208) 13 MG/DL CREATININE (test code = 2214) 0.40 MG/DL eGFR (2020 CKD-EPI) (test 137 ML/MIN/1.73 code = 73015) CALC BUN/CREAT (test code = 33 RATIO 2235) SODIUM (test code = 2231) 138 MEQ/L POTASSIUM (test code = 2228) 4.8 MEQ/L CHLORIDE (test code = 2215) 100 MEQ/L CARBON DIOXIDE (test code = 24 MEQ/L 2205) CALCIUM (test code = 2209) 10.1 MG/DL PROTEIN, TOTAL (test code = 7.7 G/DL 2228) ALBUMIN (test code = 2201) 4.5 G/DL CALC GLOBULIN (test code = 3.2 G/DL 2240) CALC A/G RATIO (test code = 1.4 RATIO 2234) BILIRUBIN, TOTAL (test code = 0.3 MG/DL 2206) ALKALINE PHOSPHATASE (test 117 U/L code = 2204) AST (test code = 2218) 42 U/L ALT (test code = 2219) 54 U/L COMPREHENSIVE METABOLIC [id number] 00:00:00 Test Item Value Reference Range Interpretation Comments GLUCOSE (test code = 2217) 239 MG/DL BUN (test code = 2208) 13 MG/DL CREATININE (test code = 2214) 0.40 MG/DL eGFR (2020 CKD-EPI) (test 137 ML/MIN/1.73 code = 47388) CALC BUN/CREAT (test code = 33 RATIO 2235) SODIUM (test code = 2231) 138 MEQ/L POTASSIUM (test code = 2228) 4.8 MEQ/L CHLORIDE (test code = 2215) 100 MEQ/L CARBON DIOXIDE (test code = 24 MEQ/L 2205) CALCIUM (test code = 2209) 10.1 MG/DL PROTEIN, TOTAL (test code = 7.7 G/DL 2228) ALBUMIN (test code = 2201) 4.5 G/DL CALC GLOBULIN (test code = 3.2 G/DL 2240) CALC A/G RATIO (test code = 1.4 RATIO 2234) BILIRUBIN, TOTAL (test code = 0.3 MG/DL 2206) ALKALINE PHOSPHATASE (test 117 U/L code = 2204) AST (test code = 2218) 42 U/L ALT (test code = 2219) 54 U/L [id number] 00:00:00 Test Item Value Reference Range Interpretation Comments INSULIN (test code = 73120) 26 UIU/ML [id number] 00:00:00 Test Item Value Reference Range Interpretation Comments INSULIN (test code = 00266) 26 UIU/ML LIPID [id number] 00:00:00 Test Item Value Reference Range Interpretation Comments CHOLESTEROL (test code = 2210) 162 MG/DL TRIGLYCERIDES (test code = 2232) 95 MG/DL HDL CHOLESTEROL (test code = 2220) 44 MG/DL CALC LDL CHOL (test code = 2237) 99 MG/DL RISK RATIO LDL/HDL (test code = 2.25 RATIO 2238) LIPID [id number] 00:00:00 Test Item Value Reference Range Interpretation Comments CHOLESTEROL (test code = 2210) 162 MG/DL TRIGLYCERIDES (test code = 2232) 95 MG/DL HDL CHOLESTEROL (test code = 2220) 44 MG/DL CALC LDL CHOL (test code = 2237) 99 MG/DL RISK RATIO LDL/HDL (test code = 2.25 RATIO 2238) HEMOGLOBIN [id number] 00:00:00 Test Item Value Reference Range Interpretation Comments HEMOGLOBIN A1c (test code = 78206) 9.3 % HEMOGLOBIN [id number] 00:00:00 Test Item Value Reference Range Interpretation Comments HEMOGLOBIN A1c (test code = 48266) 9.3 % HEMOGLOBIN [id number] 00:00:00 Test Item Value Reference Range Interpretation Comments HEMOGLOBIN A1c (test code = 33281) 9.3 % COMPREHENSIVE METABOLIC [id number] 00:00:00 Test Item Value Reference Range Interpretation Comments GLUCOSE (test code = 2217) 239 MG/DL BUN (test code = 2208) 13 MG/DL CREATININE (test code = 2214) 0.40 MG/DL eGFR (2020 CKD-EPI) (test 137 ML/MIN/1.73 code = 73305) CALC BUN/CREAT (test code = 33 RATIO 2234) SODIUM (test code = 2231) 138 MEQ/L POTASSIUM (test code = 2228) 4.8 MEQ/L CHLORIDE (test code = 2215) 100 MEQ/L CARBON DIOXIDE (test code = 24 MEQ/L 2205) CALCIUM (test code = 2209) 10.1 MG/DL PROTEIN, TOTAL (test code = 7.7 G/DL 2228) ALBUMIN (test code = 220) 4.5 G/DL CALC GLOBULIN (test code = 3.2 G/DL 2239) CALC A/G RATIO (test code = 1.4 RATIO 2233) BILIRUBIN, TOTAL (test code = 0.3 MG/DL 2206) ALKALINE PHOSPHATASE (test 117 U/L code = 2204) AST (test code = 2218) 42 U/L ALT (test code = 2219) 54 U/L COMPREHENSIVE METABOLIC [id number] 00:00:00 Test Item Value Reference Range Interpretation Comments GLUCOSE (test code = 2217) 239 MG/DL BUN (test code = 2208) 13 MG/DL CREATININE (test code = 2214) 0.40 MG/DL eGFR (2020 CKD-EPI) (test 137 ML/MIN/1.73 code = 01150) CALC BUN/CREAT (test code = 33 RATIO 2235) SODIUM (test code = 2231) 138 MEQ/L POTASSIUM (test code = 2228) 4.8 MEQ/L CHLORIDE (test code = 2215) 100 MEQ/L CARBON DIOXIDE (test code = 24 MEQ/L 2205) CALCIUM (test code = 220) 10.1 MG/DL PROTEIN, TOTAL (test code = 7.7 G/DL 2228) ALBUMIN (test code = 220) 4.5 G/DL CALC GLOBULIN (test code = 3.2 G/DL 2239) CALC A/G RATIO (test code = 1.4 RATIO 2233) BILIRUBIN, TOTAL (test code = 0.3 MG/DL 2206) ALKALINE PHOSPHATASE (test 117 U/L code = 2204) AST (test code = 2218) 42 U/L ALT (test code = 2219) 54 U/L [id number] 00:00:00 Test Item Value Reference Range Interpretation Comments INSULIN (test code = 64931) 26 UIU/ML [id number] 00:00:00 Test Item Value Reference Range Interpretation Comments INSULIN (test code = 16702) 26 UIU/ML LIPID [id number] 00:00:00 Test Item Value Reference Range Interpretation Comments CHOLESTEROL (test code = 2210) 162 MG/DL TRIGLYCERIDES (test code = 2232) 95 MG/DL HDL CHOLESTEROL (test code = 2220) 44 MG/DL CALC LDL CHOL (test code = 2237) 99 MG/DL RISK RATIO LDL/HDL (test code = 2.25 RATIO 2238) LIPID [id number] 00:00:00 Test Item Value Reference Range Interpretation Comments CHOLESTEROL (test code = 2210) 162 MG/DL TRIGLYCERIDES (test code = 2232) 95 MG/DL HDL CHOLESTEROL (test code = 2220) 44 MG/DL CALC LDL CHOL (test code = 2237) 99 MG/DL RISK RATIO LDL/HDL (test code = 2.25 RATIO 8) HEMOGLOBIN [id number] 00:00:00 Test Item Value Reference Range Interpretation Comments HEMOGLOBIN A1c (test code = 71345) 9.3 % HEMOGLOBIN [id number] 00:00:00 Test Item Value Reference Range Interpretation Comments HEMOGLOBIN A1c (test code = 12541) 9.3 % HEMOGLOBIN [id number] 00:00:00 Test Item Value Reference Range Interpretation Comments HEMOGLOBIN A1c (test code = 77303) 9.3 % COMPREHENSIVE METABOLIC [id number] 00:00:00 Test Item Value Reference Range Interpretation Comments GLUCOSE (test code = 2217) 239 MG/DL BUN (test code = 2208) 13 MG/DL CREATININE (test code = 2214) 0.40 MG/DL eGFR (2020 CKD-EPI) (test 137 ML/MIN/1.73 code = 23671) CALC BUN/CREAT (test code = 33 RATIO 2234) SODIUM (test code = 2231) 138 MEQ/L POTASSIUM (test code = 2228) 4.8 MEQ/L CHLORIDE (test code = 2215) 100 MEQ/L CARBON DIOXIDE (test code = 24 MEQ/L 2205) CALCIUM (test code = 2209) 10.1 MG/DL PROTEIN, TOTAL (test code = 7.7 G/DL 2228) ALBUMIN (test code = 2201) 4.5 G/DL CALC GLOBULIN (test code = 3.2 G/DL 2239) CALC A/G RATIO (test code = 1.4 RATIO 2233) BILIRUBIN, TOTAL (test code = 0.3 MG/DL 2206) ALKALINE PHOSPHATASE (test 117 U/L code = 2204) AST (test code = 2218) 42 U/L ALT (test code = 2219) 54 U/L COMPREHENSIVE METABOLIC [id number] 00:00:00 Test Item Value Reference Range Interpretation Comments GLUCOSE (test code = 2217) 239 MG/DL BUN (test code = 2208) 13 MG/DL CREATININE (test code = 2214) 0.40 MG/DL eGFR (2020 CKD-EPI) (test 137 ML/MIN/1.73 code = 74398) CALC BUN/CREAT (test code = 33 RATIO 2235) SODIUM (test code = 2231) 138 MEQ/L POTASSIUM (test code = 2228) 4.8 MEQ/L CHLORIDE (test code = 2215) 100 MEQ/L CARBON DIOXIDE (test code = 24 MEQ/L 2205) CALCIUM (test code = 2209) 10.1 MG/DL PROTEIN, TOTAL (test code = 7.7 G/DL 2228) ALBUMIN (test code = 220) 4.5 G/DL CALC GLOBULIN (test code = 3.2 G/DL 2239) CALC A/G RATIO (test code = 1.4 RATIO 2233) BILIRUBIN, TOTAL (test code = 0.3 MG/DL 2206) ALKALINE PHOSPHATASE (test 117 U/L code = 2204) AST (test code = 2218) 42 U/L ALT (test code = 2219) 54 U/L [id number] 00:00:00 Test Item Value Reference Range Interpretation Comments INSULIN (test code = 29987) 26 UIU/ML LIPID [id number] 00:00:00 Test Item Value Reference Range Interpretation Comments CHOLESTEROL (test code = 2210) 162 MG/DL TRIGLYCERIDES (test code = 2232) 95 MG/DL HDL CHOLESTEROL (test code = 2220) 44 MG/DL CALC LDL CHOL (test code = 2237) 99 MG/DL RISK RATIO LDL/HDL (test code = 2.25 RATIO 2238) HEMOGLOBIN [id number] 00:00:00 Test Item Value Reference Range Interpretation Comments HEMOGLOBIN A1c (test code = 87391) 9.3 % HEMOGLOBIN [id number] 00:00:00 Test Item Value Reference Range Interpretation Comments HEMOGLOBIN A1c (test code = 24564) 9.3 % COMPREHENSIVE METABOLIC [id number] 00:00:00 Test Item Value Reference Range Interpretation Comments GLUCOSE (test code = 2217) 239 MG/DL BUN (test code = 2208) 13 MG/DL CREATININE (test code = 2214) 0.40 MG/DL eGFR (2020 CKD-EPI) (test 137 ML/MIN/1.73 code = 70316) CALC BUN/CREAT (test code = 33 RATIO 2235) SODIUM (test code = 2231) 138 MEQ/L POTASSIUM (test code = 2228) 4.8 MEQ/L CHLORIDE (test code = 2215) 100 MEQ/L CARBON DIOXIDE (test code = 24 MEQ/L 2205) CALCIUM (test code = 220) 10.1 MG/DL PROTEIN, TOTAL (test code = 7.7 G/DL 2228) ALBUMIN (test code = 2201) 4.5 G/DL CALC GLOBULIN (test code = 3.2 G/DL 2239) CALC A/G RATIO (test code = 1.4 RATIO 2233) BILIRUBIN, TOTAL (test code = 0.3 MG/DL 2206) ALKALINE PHOSPHATASE (test 117 U/L code = 220) AST (test code = 2218) 42 U/L ALT (test code = 2219) 54 U/L TSH, THIRD [id number] 06:38:12 Test Item Value Reference Range Interpretation Comments TSH, THIRD 1.770 UIU/ML 0.400-4.100 UNLESS OTHERWI SE GENERATION (test INDICATED, ALL TESTING code = 2829) PERFORMED [facility], [address] DIRECTOR: OZ PISANO M.D. CLIA NUMBER [id number] CAP ACCREDITATION N O. [id number] COMPREHENSIVE METABOLIC [id number] 04:17:29 Test Item Value Reference Range Interpretation Comments GLUCOSE (test code = 274 MG/DL 70-99 H 2216) BUN (test code = 12 MG/DL 6-20 2207) CREATININE (test 0.45 MG/DL 0.60-1.30 L code = 2213) eGFR (2020 CKD-EPI) 133 >60 (test code = 79043) ML/MIN/1.73 CALC BUN/CREAT (test 27 RATIO 05-17 code = 2235) SODIUM (test code = 138 MEQ/L 460-169 1743) POTASSIUM (test code 4.7 MEQ/L 3.5-5.4 = 2227) CHLORIDE (test code 99 MEQ/L 95-107 = 2214) CARBON DIOXIDE (test 25 MEQ/L 19-31 code = 220) CALCIUM (test code = 9.7 MG/DL 8.5-10.5 2208) PROTEIN, TOTAL (test 7.5 G/DL 6.1-8.3 code = 222) ALBUMIN (test code = 4.4 G/DL 3.5-5.2 2200) CALC GLOBULIN (test 3.1 G/DL 1.9-3.7 code = 2240) CALC A/G RATIO (test 1.4 RATIO 1.0-2.6 code = 2234) BILIRUBIN, TOTAL 0.3 MG/DL See_Comment [Automated message] (test code = 2207) The syste m which generated this result transmit aisha reference range : <=1.2. The refe rence range was not u sed to interpret th is result as normal/abnormal . ALKALINE PHOSPHATASE 114 U/L 40-112 H (test code = 2204) AST (test code = 35 U/L 9-40 2217) ALT (test code = 45 U/L 5-40 H 2218) CBC W/AUTO DIFF WITH [id number] 02:44:36 Test Item Value Reference Range Interpretation Comments WBC (test code = 8.2 K/UL 3.5-11.0 1001) RBC (test code = 4.75 M/UL 3.80-5.40 1002) HEMOGLOBIN (test code 13.1 G/DL 11.5-15.5 = 1003) HEMATOCRIT (test code 38.8 % 34.0-45.0 = 1004) MCV (test code = 81.7 fL 80.0-99.0 1005) MCH (test code = 27.6 PG 25.0-33.0 1006) MCHC (test code = 33.8 G/DL 31.0-36.0 1007) RDW (test code = 13.6 % 11.5-15.0 1038) NEUTROPHILS (test 67.2 % code = 1008) LYMPHOCYTES (test 23.3 % code = 1010) MONOCYTES (test code 5.5 % = 1011) EOSINOPHILS (test 3.0 % code = 1012) BASOPHILS (test code 0.5 % = 1013) IMMATURE GRANULOCYTES 0.5 % (test code = 1036) NUCLEATED RBCS (test 0.0 /100 WBC'S See_Comment [Aut omated code = 1065) message] The sy stem which generated this result transmitted reference range : 0.0. The refere nce range was not u sed to interpret th is result as normal/abnormal . PLATELET COUNT (test 294 K/UL 130-400 code = 1015) ABSOLUTE NEUTROPHILS 5.54 K/UL 1.50-7.50 (test code = 1066) ABSOLUTE LYMPHOCYTES 1.92 K/UL 1.00-4.00 (test code = 1067) ABSOLUTE MONOCYTES 0.45 K/UL 0.20-1.00 (test code = 1068) ABSOLUTE EOSINOPHILS 0.25 K/UL 0.00-0.50 (test code = 1040) ABSOLUTE BASOPHILS 0.04 K/UL 0.00-0.20 (test code = 1069) ABS IMMATURE 0.04 K/UL 0.00-0.10 GRANULOCYTES (test code = 1020) ABS NUCLEATED RBCS 0.00 K/UL 0.00-0.11 (test code = 85557) CBC W/AUTO [id number] 00:00:00 Test Item Value Reference Range Interpretation Comments WBC (test code = 1001) 8.2 K/UL RBC (test code = 1002) 4.75 M/UL HEMOGLOBIN (test code = 1003) 13.1 G/DL HEMATOCRIT (test code = 1004) 38.8 % MCV (test code = 1005) 81.7 fL MCH (test code = 1006) 27.6 PG MCHC (test code = 1007) 33.8 G/DL RDW (test code = 1038) 13.6 % NEUTROPHILS (test code = 1008) 67.2 % LYMPHOCYTES (test code = 1010) 23.3 % MONOCYTES (test code = 1011) 5.5 % EOSINOPHILS (test code = 1012) 3.0 % BASOPHILS (test code = 1013) 0.5 % IMMATURE GRANULOCYTES (test 0.5 % code = 1036) NUCLEATED RBCS (test code = 0.0 /100WBC'S 1065) PLATELET COUNT (test code = 294 K/UL 1015) ABSOLUTE NEUTROPHILS (test code 5.54 K/UL = 1066) ABSOLUTE LYMPHOCYTES (test code 1.92 K/UL = 1067) ABSOLUTE MONOCYTES (test code = 0.45 K/UL 1068) ABSOLUTE EOSINOPHILS (test code 0.25 K/UL = 1040) ABSOLUTE BASOPHILS (test code = 0.04 K/UL 1069) ABS IMMATURE GRANULOCYTES (test 0.04 K/UL code = 1020) ABS NUCLEATED RBCS (test code = 0.00 K/UL 81244) CBC W/AUTO [id number] 00:00:00 Test Item Value Reference Range Interpretation Comments WBC (test code = 1001) 8.2 K/UL RBC (test code = 1002) 4.75 M/UL HEMOGLOBIN (test code = 1003) 13.1 G/DL HEMATOCRIT (test code = 1004) 38.8 % MCV (test code = 1005) 81.7 fL MCH (test code = 1006) 27.6 PG MCHC (test code = 1007) 33.8 G/DL RDW (test code = 1038) 13.6 % NEUTROPHILS (test code = 1008) 67.2 % LYMPHOCYTES (test code = 1010) 23.3 % MONOCYTES (test code = 1011) 5.5 % EOSINOPHILS (test code = 1012) 3.0 % BASOPHILS (test code = 1013) 0.5 % IMMATURE GRANULOCYTES (test 0.5 % code = 1036) NUCLEATED RBCS (test code = 0.0 /100WBC'S 1065) PLATELET COUNT (test code = 294 K/UL 1015) ABSOLUTE NEUTROPHILS (test code 5.54 K/UL = 1066) ABSOLUTE LYMPHOCYTES (test code 1.92 K/UL = 1067) ABSOLUTE MONOCYTES (test code = 0.45 K/UL 1068) ABSOLUTE EOSINOPHILS (test code 0.25 K/UL = 1040) ABSOLUTE BASOPHILS (test code = 0.04 K/UL 1069) ABS IMMATURE GRANULOCYTES (test 0.04 K/UL code = 1020) ABS NUCLEATED RBCS (test code = 0.00 K/UL 32457) CBC W/AUTO [id number] 00:00:00 Test Item Value Reference Range Interpretation Comments WBC (test code = 1001) 8.2 K/UL RBC (test code = 1002) 4.75 M/UL HEMOGLOBIN (test code = 1003) 13.1 G/DL HEMATOCRIT (test code = 1004) 38.8 % MCV (test code = 1005) 81.7 fL MCH (test code = 1006) 27.6 PG MCHC (test code = 1007) 33.8 G/DL RDW (test code = 1038) 13.6 % NEUTROPHILS (test code = 1008) 67.2 % LYMPHOCYTES (test code = 1010) 23.3 % MONOCYTES (test code = 1011) 5.5 % EOSINOPHILS (test code = 1012) 3.0 % BASOPHILS (test code = 1013) 0.5 % IMMATURE GRANULOCYTES (test 0.5 % code = 1036) NUCLEATED RBCS (test code = 0.0 /100WBC'S 1065) PLATELET COUNT (test code = 294 K/UL 1015) ABSOLUTE NEUTROPHILS (test code 5.54 K/UL = 1066) ABSOLUTE LYMPHOCYTES (test code 1.92 K/UL = 1067) ABSOLUTE MONOCYTES (test code = 0.45 K/UL 1068) ABSOLUTE EOSINOPHILS (test code 0.25 K/UL = 1040) ABSOLUTE BASOPHILS (test code = 0.04 K/UL 1069) ABS IMMATURE GRANULOCYTES (test 0.04 K/UL code = 1020) ABS NUCLEATED RBCS (test code = 0.00 K/UL 50683) COMPREHENSIVE METABOLIC [id number] 00:00:00 Test Item Value Reference Range Interpretation Comments GLUCOSE (test code = 2217) 274 MG/DL BUN (test code = 2208) 12 MG/DL CREATININE (test code = 2214) 0.45 MG/DL eGFR (2020 CKD-EPI) (test 133 ML/MIN/1.73 code = 21028) CALC BUN/CREAT (test code = 27 RATIO 2235) SODIUM (test code = 2231) 138 MEQ/L POTASSIUM (test code = 2228) 4.7 MEQ/L CHLORIDE (test code = 2215) 99 MEQ/L CARBON DIOXIDE (test code = 25 MEQ/L 2205) CALCIUM (test code = 2209) 9.7 MG/DL PROTEIN, TOTAL (test code = 7.5 G/DL 2228) ALBUMIN (test code = 2201) 4.4 G/DL CALC GLOBULIN (test code = 3.1 G/DL 2240) CALC A/G RATIO (test code = 1.4 RATIO 2234) BILIRUBIN, TOTAL (test code = 0.3 MG/DL 2206) ALKALINE PHOSPHATASE (test 114 U/L code = 2204) AST (test code = 2218) 35 U/L ALT (test code = 2219) 45 U/L COMPREHENSIVE METABOLIC [id number] 00:00:00 Test Item Value Reference Range Interpretation Comments GLUCOSE (test code = 2217) 274 MG/DL BUN (test code = 2208) 12 MG/DL CREATININE (test code = 2214) 0.45 MG/DL eGFR (2020 CKD-EPI) (test 133 ML/MIN/1.73 code = 00811) CALC BUN/CREAT (test code = 27 RATIO 2234) SODIUM (test code = 2231) 138 MEQ/L POTASSIUM (test code = 2228) 4.7 MEQ/L CHLORIDE (test code = 2215) 99 MEQ/L CARBON DIOXIDE (test code = 25 MEQ/L 2205) CALCIUM (test code = 2209) 9.7 MG/DL PROTEIN, TOTAL (test code = 7.5 G/DL 2228) ALBUMIN (test code = 2201) 4.4 G/DL CALC GLOBULIN (test code = 3.1 G/DL 2239) CALC A/G RATIO (test code = 1.4 RATIO 2233) BILIRUBIN, TOTAL (test code = 0.3 MG/DL 2206) ALKALINE PHOSPHATASE (test 114 U/L code = 220) AST (test code = 2218) 35 U/L ALT (test code = 2219) 45 U/L [id number] 00:00:00 Test Item Value Reference Range Interpretation Comments TSH, THIRD GENERATION (test code 1.770 UIU/ML = 2821) [id number] 00:00:00 Test Item Value Reference Range Interpretation Comments TSH, THIRD GENERATION (test code 1.770 UIU/ML = 2821) [id number] 00:00:00 Test Item Value Reference Range Interpretation Comments TSH, THIRD GENERATION (test code 1.770 UIU/ML = 2821) CBC W/AUTO [id number] 00:00:00 Test Item Value Reference Range Interpretation Comments WBC (test code = 1001) 8.2 K/UL RBC (test code = 1002) 4.75 M/UL HEMOGLOBIN (test code = 1003) 13.1 G/DL HEMATOCRIT (test code = 1004) 38.8 % MCV (test code = 1005) 81.7 fL MCH (test code = 1006) 27.6 PG MCHC (test code = 1007) 33.8 G/DL RDW (test code = 1038) 13.6 % NEUTROPHILS (test code = 1008) 67.2 % LYMPHOCYTES (test code = 1010) 23.3 % MONOCYTES (test code = 1011) 5.5 % EOSINOPHILS (test code = 1012) 3.0 % BASOPHILS (test code = 1013) 0.5 % IMMATURE GRANULOCYTES (test 0.5 % code = 1036) NUCLEATED RBCS (test code = 0.0 /100WBC'S 1065) PLATELET COUNT (test code = 294 K/UL 1015) ABSOLUTE NEUTROPHILS (test code 5.54 K/UL = 1066) ABSOLUTE LYMPHOCYTES (test code 1.92 K/UL = 1067) ABSOLUTE MONOCYTES (test code = 0.45 K/UL 1068) ABSOLUTE EOSINOPHILS (test code 0.25 K/UL = 1040) ABSOLUTE BASOPHILS (test code = 0.04 K/UL 1069) ABS IMMATURE GRANULOCYTES (test 0.04 K/UL code = 1020) ABS NUCLEATED RBCS (test code = 0.00 K/UL 79087) CBC W/AUTO [id number] 00:00:00 Test Item Value Reference Range Interpretation Comments WBC (test code = 1001) 8.2 K/UL RBC (test code = 1002) 4.75 M/UL HEMOGLOBIN (test code = 1003) 13.1 G/DL HEMATOCRIT (test code = 1004) 38.8 % MCV (test code = 1005) 81.7 fL MCH (test code = 1006) 27.6 PG MCHC (test code = 1007) 33.8 G/DL RDW (test code = 1038) 13.6 % NEUTROPHILS (test code = 1008) 67.2 % LYMPHOCYTES (test code = 1010) 23.3 % MONOCYTES (test code = 1011) 5.5 % EOSINOPHILS (test code = 1012) 3.0 % BASOPHILS (test code = 1013) 0.5 % IMMATURE GRANULOCYTES (test 0.5 % code = 1036) NUCLEATED RBCS (test code = 0.0 /100WBC'S 1065) PLATELET COUNT (test code = 294 K/UL 1015) ABSOLUTE NEUTROPHILS (test code 5.54 K/UL = 1066) ABSOLUTE LYMPHOCYTES (test code 1.92 K/UL = 1067) ABSOLUTE MONOCYTES (test code = 0.45 K/UL 1068) ABSOLUTE EOSINOPHILS (test code 0.25 K/UL = 1040) ABSOLUTE BASOPHILS (test code = 0.04 K/UL 1069) ABS IMMATURE GRANULOCYTES (test 0.04 K/UL code = 1020) ABS NUCLEATED RBCS (test code = 0.00 K/UL 48697) CBC W/AUTO [id number] 00:00:00 Test Item Value Reference Range Interpretation Comments WBC (test code = 1001) 8.2 K/UL RBC (test code = 1002) 4.75 M/UL HEMOGLOBIN (test code = 1003) 13.1 G/DL HEMATOCRIT (test code = 1004) 38.8 % MCV (test code = 1005) 81.7 fL MCH (test code = 1006) 27.6 PG MCHC (test code = 1007) 33.8 G/DL RDW (test code = 1038) 13.6 % NEUTROPHILS (test code = 1008) 67.2 % LYMPHOCYTES (test code = 1010) 23.3 % MONOCYTES (test code = 1011) 5.5 % EOSINOPHILS (test code = 1012) 3.0 % BASOPHILS (test code = 1013) 0.5 % IMMATURE GRANULOCYTES (test 0.5 % code = 1036) NUCLEATED RBCS (test code = 0.0 /100WBC'S 1065) PLATELET COUNT (test code = 294 K/UL 1015) ABSOLUTE NEUTROPHILS (test code 5.54 K/UL = 1066) ABSOLUTE LYMPHOCYTES (test code 1.92 K/UL = 1067) ABSOLUTE MONOCYTES (test code = 0.45 K/UL 1068) ABSOLUTE EOSINOPHILS (test code 0.25 K/UL = 1040) ABSOLUTE BASOPHILS (test code = 0.04 K/UL 1069) ABS IMMATURE GRANULOCYTES (test 0.04 K/UL code = 1020) ABS NUCLEATED RBCS (test code = 0.00 K/UL 33165) COMPREHENSIVE METABOLIC [id number] 00:00:00 Test Item Value Reference Range Interpretation Comments GLUCOSE (test code = 2217) 274 MG/DL BUN (test code = 2208) 12 MG/DL CREATININE (test code = 2214) 0.45 MG/DL eGFR (2020 CKD-EPI) (test 133 ML/MIN/1.73 code = 01724) CALC BUN/CREAT (test code = 27 RATIO 2235) SODIUM (test code = 2231) 138 MEQ/L POTASSIUM (test code = 2228) 4.7 MEQ/L CHLORIDE (test code = 2215) 99 MEQ/L CARBON DIOXIDE (test code = 25 MEQ/L 220) CALCIUM (test code = 2209) 9.7 MG/DL PROTEIN, TOTAL (test code = 7.5 G/DL 2228) ALBUMIN (test code = 2201) 4.4 G/DL CALC GLOBULIN (test code = 3.1 G/DL 2240) CALC A/G RATIO (test code = 1.4 RATIO 2234) BILIRUBIN, TOTAL (test code = 0.3 MG/DL 2206) ALKALINE PHOSPHATASE (test 114 U/L code = 2204) AST (test code = 2218) 35 U/L ALT (test code = 2219) 45 U/L COMPREHENSIVE METABOLIC [id number] 00:00:00 Test Item Value Reference Range Interpretation Comments GLUCOSE (test code = 2217) 274 MG/DL BUN (test code = 2208) 12 MG/DL CREATININE (test code = 2214) 0.45 MG/DL eGFR (2020 CKD-EPI) (test 133 ML/MIN/1.73 code = 93316) CALC BUN/CREAT (test code = 27 RATIO 2235) SODIUM (test code = 2231) 138 MEQ/L POTASSIUM (test code = 2228) 4.7 MEQ/L CHLORIDE (test code = 2215) 99 MEQ/L CARBON DIOXIDE (test code = 25 MEQ/L 2205) CALCIUM (test code = 2209) 9.7 MG/DL PROTEIN, TOTAL (test code = 7.5 G/DL 2228) ALBUMIN (test code = 2201) 4.4 G/DL CALC GLOBULIN (test code = 3.1 G/DL 2240) CALC A/G RATIO (test code = 1.4 RATIO 2234) BILIRUBIN, TOTAL (test code = 0.3 MG/DL 2206) ALKALINE PHOSPHATASE (test 114 U/L code = 2204) AST (test code = 2218) 35 U/L ALT (test code = 2219) 45 U/L [id number] 00:00:00 Test Item Value Reference Range Interpretation Comments TSH, THIRD GENERATION (test code 1.770 UIU/ML = 2821) [id number] 00:00:00 Test Item Value Reference Range Interpretation Comments TSH, THIRD GENERATION (test code 1.770 UIU/ML = 2821) [id number] 00:00:00 Test Item Value Reference Range Interpretation Comments TSH, THIRD GENERATION (test code 1.770 UIU/ML = 2821) CBC W/AUTO [id number] 00:00:00 Test Item Value Reference Range Interpretation Comments WBC (test code = 1001) 8.2 K/UL RBC (test code = 1002) 4.75 M/UL HEMOGLOBIN (test code = 1003) 13.1 G/DL HEMATOCRIT (test code = 1004) 38.8 % MCV (test code = 1005) 81.7 fL MCH (test code = 1006) 27.6 PG MCHC (test code = 1007) 33.8 G/DL RDW (test code = 1038) 13.6 % NEUTROPHILS (test code = 1008) 67.2 % LYMPHOCYTES (test code = 1010) 23.3 % MONOCYTES (test code = 1011) 5.5 % EOSINOPHILS (test code = 1012) 3.0 % BASOPHILS (test code = 1013) 0.5 % IMMATURE GRANULOCYTES (test 0.5 % code = 1036) NUCLEATED RBCS (test code = 0.0 /100WBC'S 1065) PLATELET COUNT (test code = 294 K/UL 1015) ABSOLUTE NEUTROPHILS (test code 5.54 K/UL = 1066) ABSOLUTE LYMPHOCYTES (test code 1.92 K/UL = 1067) ABSOLUTE MONOCYTES (test code = 0.45 K/UL 1068) ABSOLUTE EOSINOPHILS (test code 0.25 K/UL = 1040) ABSOLUTE BASOPHILS (test code = 0.04 K/UL 1069) ABS IMMATURE GRANULOCYTES (test 0.04 K/UL code = 1020) ABS NUCLEATED RBCS (test code = 0.00 K/UL 69347) CBC W/AUTO [id number] 00:00:00 Test Item Value Reference Range Interpretation Comments WBC (test code = 1001) 8.2 K/UL RBC (test code = 1002) 4.75 M/UL HEMOGLOBIN (test code = 1003) 13.1 G/DL HEMATOCRIT (test code = 1004) 38.8 % MCV (test code = 1005) 81.7 fL MCH (test code = 1006) 27.6 PG MCHC (test code = 1007) 33.8 G/DL RDW (test code = 1038) 13.6 % NEUTROPHILS (test code = 1008) 67.2 % LYMPHOCYTES (test code = 1010) 23.3 % MONOCYTES (test code = 1011) 5.5 % EOSINOPHILS (test code = 1012) 3.0 % BASOPHILS (test code = 1013) 0.5 % IMMATURE GRANULOCYTES (test 0.5 % code = 1036) NUCLEATED RBCS (test code = 0.0 /100WBC'S 1065) PLATELET COUNT (test code = 294 K/UL 1015) ABSOLUTE NEUTROPHILS (test code 5.54 K/UL = 1066) ABSOLUTE LYMPHOCYTES (test code 1.92 K/UL = 1067) ABSOLUTE MONOCYTES (test code = 0.45 K/UL 1068) ABSOLUTE EOSINOPHILS (test code 0.25 K/UL = 1040) ABSOLUTE BASOPHILS (test code = 0.04 K/UL 1069) ABS IMMATURE GRANULOCYTES (test 0.04 K/UL code = 1020) ABS NUCLEATED RBCS (test code = 0.00 K/UL 40878) CBC W/AUTO [id number] 00:00:00 Test Item Value Reference Range Interpretation Comments WBC (test code = 1001) 8.2 K/UL RBC (test code = 1002) 4.75 M/UL HEMOGLOBIN (test code = 1003) 13.1 G/DL HEMATOCRIT (test code = 1004) 38.8 % MCV (test code = 1005) 81.7 fL MCH (test code = 1006) 27.6 PG MCHC (test code = 1007) 33.8 G/DL RDW (test code = 1038) 13.6 % NEUTROPHILS (test code = 1008) 67.2 % LYMPHOCYTES (test code = 1010) 23.3 % MONOCYTES (test code = 1011) 5.5 % EOSINOPHILS (test code = 1012) 3.0 % BASOPHILS (test code = 1013) 0.5 % IMMATURE GRANULOCYTES (test 0.5 % code = 1036) NUCLEATED RBCS (test code = 0.0 /100WBC'S 1065) PLATELET COUNT (test code = 294 K/UL 1015) ABSOLUTE NEUTROPHILS (test code 5.54 K/UL = 1066) ABSOLUTE LYMPHOCYTES (test code 1.92 K/UL = 1067) ABSOLUTE MONOCYTES (test code = 0.45 K/UL 1068) ABSOLUTE EOSINOPHILS (test code 0.25 K/UL = 1040) ABSOLUTE BASOPHILS (test code = 0.04 K/UL 1069) ABS IMMATURE GRANULOCYTES (test 0.04 K/UL code = 1020) ABS NUCLEATED RBCS (test code = 0.00 K/UL 24367) COMPREHENSIVE METABOLIC [id number] 00:00:00 Test Item Value Reference Range Interpretation Comments GLUCOSE (test code = 2217) 274 MG/DL BUN (test code = 2208) 12 MG/DL CREATININE (test code = 2214) 0.45 MG/DL eGFR (2020 CKD-EPI) (test 133 ML/MIN/1.73 code = 68152) CALC BUN/CREAT (test code = 27 RATIO 2235) SODIUM (test code = 2231) 138 MEQ/L POTASSIUM (test code = 2228) 4.7 MEQ/L CHLORIDE (test code = 2215) 99 MEQ/L CARBON DIOXIDE (test code = 25 MEQ/L 2205) CALCIUM (test code = 2209) 9.7 MG/DL PROTEIN, TOTAL (test code = 7.5 G/DL 2228) ALBUMIN (test code = 2201) 4.4 G/DL CALC GLOBULIN (test code = 3.1 G/DL 2240) CALC A/G RATIO (test code = 1.4 RATIO 2233) BILIRUBIN, TOTAL (test code = 0.3 MG/DL 2206) ALKALINE PHOSPHATASE (test 114 U/L code = 2204) AST (test code = 2218) 35 U/L ALT (test code = 2219) 45 U/L COMPREHENSIVE METABOLIC [id number] 00:00:00 Test Item Value Reference Range Interpretation Comments GLUCOSE (test code = 2217) 274 MG/DL BUN (test code = 2208) 12 MG/DL CREATININE (test code = 2214) 0.45 MG/DL eGFR (2020 CKD-EPI) (test 133 ML/MIN/1.73 code = 62112) CALC BUN/CREAT (test code = 27 RATIO 2235) SODIUM (test code = 2231) 138 MEQ/L POTASSIUM (test code = 2228) 4.7 MEQ/L CHLORIDE (test code = 2215) 99 MEQ/L CARBON DIOXIDE (test code = 25 MEQ/L 2205) CALCIUM (test code = 2209) 9.7 MG/DL PROTEIN, TOTAL (test code = 7.5 G/DL 2228) ALBUMIN (test code = 2201) 4.4 G/DL CALC GLOBULIN (test code = 3.1 G/DL 2240) CALC A/G RATIO (test code = 1.4 RATIO 2234) BILIRUBIN, TOTAL (test code = 0.3 MG/DL 2206) ALKALINE PHOSPHATASE (test 114 U/L code = 2204) AST (test code = 2218) 35 U/L ALT (test code = 2219) 45 U/L [id number] 00:00:00 Test Item Value Reference Range Interpretation Comments TSH, THIRD GENERATION (test code 1.770 UIU/ML = 2821) [id number] 00:00:00 Test Item Value Reference Range Interpretation Comments TSH, THIRD GENERATION (test code 1.770 UIU/ML = 2821) [id number] 00:00:00 Test Item Value Reference Range Interpretation Comments TSH, THIRD GENERATION (test code 1.770 UIU/ML = 2821) CBC W/AUTO [id number] 00:00:00 Test Item Value Reference Range Interpretation Comments WBC (test code = 1001) 8.2 K/UL RBC (test code = 1002) 4.75 M/UL HEMOGLOBIN (test code = 1003) 13.1 G/DL HEMATOCRIT (test code = 1004) 38.8 % MCV (test code = 1005) 81.7 fL MCH (test code = 1006) 27.6 PG MCHC (test code = 1007) 33.8 G/DL RDW (test code = 1038) 13.6 % NEUTROPHILS (test code = 1008) 67.2 % LYMPHOCYTES (test code = 1010) 23.3 % MONOCYTES (test code = 1011) 5.5 % EOSINOPHILS (test code = 1012) 3.0 % BASOPHILS (test code = 1013) 0.5 % IMMATURE GRANULOCYTES (test 0.5 % code = 1036) NUCLEATED RBCS (test code = 0.0 /100WBC'S 1065) PLATELET COUNT (test code = 294 K/UL 1015) ABSOLUTE NEUTROPHILS (test code 5.54 K/UL = 1066) ABSOLUTE LYMPHOCYTES (test code 1.92 K/UL = 1067) ABSOLUTE MONOCYTES (test code = 0.45 K/UL 1068) ABSOLUTE EOSINOPHILS (test code 0.25 K/UL = 1040) ABSOLUTE BASOPHILS (test code = 0.04 K/UL 1069) ABS IMMATURE GRANULOCYTES (test 0.04 K/UL code = 1020) ABS NUCLEATED RBCS (test code = 0.00 K/UL 84290) CBC W/AUTO [id number] 00:00:00 Test Item Value Reference Range Interpretation Comments WBC (test code = 1001) 8.2 K/UL RBC (test code = 1002) 4.75 M/UL HEMOGLOBIN (test code = 1003) 13.1 G/DL HEMATOCRIT (test code = 1004) 38.8 % MCV (test code = 1005) 81.7 fL MCH (test code = 1006) 27.6 PG MCHC (test code = 1007) 33.8 G/DL RDW (test code = 1038) 13.6 % NEUTROPHILS (test code = 1008) 67.2 % LYMPHOCYTES (test code = 1010) 23.3 % MONOCYTES (test code = 1011) 5.5 % EOSINOPHILS (test code = 1012) 3.0 % BASOPHILS (test code = 1013) 0.5 % IMMATURE GRANULOCYTES (test 0.5 % code = 1036) NUCLEATED RBCS (test code = 0.0 /100WBC'S 1065) PLATELET COUNT (test code = 294 K/UL 1015) ABSOLUTE NEUTROPHILS (test code 5.54 K/UL = 1066) ABSOLUTE LYMPHOCYTES (test code 1.92 K/UL = 1067) ABSOLUTE MONOCYTES (test code = 0.45 K/UL 1068) ABSOLUTE EOSINOPHILS (test code 0.25 K/UL = 1040) ABSOLUTE BASOPHILS (test code = 0.04 K/UL 1069) ABS IMMATURE GRANULOCYTES (test 0.04 K/UL code = 1020) ABS NUCLEATED RBCS (test code = 0.00 K/UL 99554) CBC W/AUTO [id number] 00:00:00 Test Item Value Reference Range Interpretation Comments WBC (test code = 1001) 8.2 K/UL RBC (test code = 1002) 4.75 M/UL HEMOGLOBIN (test code = 1003) 13.1 G/DL HEMATOCRIT (test code = 1004) 38.8 % MCV (test code = 1005) 81.7 fL MCH (test code = 1006) 27.6 PG MCHC (test code = 1007) 33.8 G/DL RDW (test code = 1038) 13.6 % NEUTROPHILS (test code = 1008) 67.2 % LYMPHOCYTES (test code = 1010) 23.3 % MONOCYTES (test code = 1011) 5.5 % EOSINOPHILS (test code = 1012) 3.0 % BASOPHILS (test code = 1013) 0.5 % IMMATURE GRANULOCYTES (test 0.5 % code = 1036) NUCLEATED RBCS (test code = 0.0 /100WBC'S 1065) PLATELET COUNT (test code = 294 K/UL 1015) ABSOLUTE NEUTROPHILS (test code 5.54 K/UL = 1066) ABSOLUTE LYMPHOCYTES (test code 1.92 K/UL = 1067) ABSOLUTE MONOCYTES (test code = 0.45 K/UL 1068) ABSOLUTE EOSINOPHILS (test code 0.25 K/UL = 1040) ABSOLUTE BASOPHILS (test code = 0.04 K/UL 1069) ABS IMMATURE GRANULOCYTES (test 0.04 K/UL code = 1020) ABS NUCLEATED RBCS (test code = 0.00 K/UL 94757) COMPREHENSIVE METABOLIC [id number] 00:00:00 Test Item Value Reference Range Interpretation Comments GLUCOSE (test code = 2217) 274 MG/DL BUN (test code = 2208) 12 MG/DL CREATININE (test code = 2214) 0.45 MG/DL eGFR (2020 CKD-EPI) (test 133 ML/MIN/1.73 code = 14669) CALC BUN/CREAT (test code = 27 RATIO 2235) SODIUM (test code = 2231) 138 MEQ/L POTASSIUM (test code = 2228) 4.7 MEQ/L CHLORIDE (test code = 2215) 99 MEQ/L CARBON DIOXIDE (test code = 25 MEQ/L 2205) CALCIUM (test code = 2209) 9.7 MG/DL PROTEIN, TOTAL (test code = 7.5 G/DL 2228) ALBUMIN (test code = 2201) 4.4 G/DL CALC GLOBULIN (test code = 3.1 G/DL 2240) CALC A/G RATIO (test code = 1.4 RATIO 2234) BILIRUBIN, TOTAL (test code = 0.3 MG/DL 2206) ALKALINE PHOSPHATASE (test 114 U/L code = 2204) AST (test code = 2218) 35 U/L ALT (test code = 2219) 45 U/L COMPREHENSIVE METABOLIC [id number] 00:00:00 Test Item Value Reference Range Interpretation Comments GLUCOSE (test code = 2217) 274 MG/DL BUN (test code = 2208) 12 MG/DL CREATININE (test code = 2214) 0.45 MG/DL eGFR (2020 CKD-EPI) (test 133 ML/MIN/1.73 code = 27499) CALC BUN/CREAT (test code = 27 RATIO 2234) SODIUM (test code = 2231) 138 MEQ/L POTASSIUM (test code = 2228) 4.7 MEQ/L CHLORIDE (test code = 2215) 99 MEQ/L CARBON DIOXIDE (test code = 25 MEQ/L 2205) CALCIUM (test code = 220) 9.7 MG/DL PROTEIN, TOTAL (test code = 7.5 G/DL 2228) ALBUMIN (test code = 220) 4.4 G/DL CALC GLOBULIN (test code = 3.1 G/DL 2239) CALC A/G RATIO (test code = 1.4 RATIO 2233) BILIRUBIN, TOTAL (test code = 0.3 MG/DL 2206) ALKALINE PHOSPHATASE (test 114 U/L code = 2203) AST (test code = 2218) 35 U/L ALT (test code = 2219) 45 U/L [id number] 00:00:00 Test Item Value Reference Range Interpretation Comments TSH, THIRD GENERATION (test code 1.770 UIU/ML = 2821) [id number] 00:00:00 Test Item Value Reference Range Interpretation Comments TSH, THIRD GENERATION (test code 1.770 UIU/ML = 2821) [id number] 00:00:00 Test Item Value Reference Range Interpretation Comments TSH, THIRD GENERATION (test code 1.770 UIU/ML = 2821) CBC W/AUTO [id number] 00:00:00 Test Item Value Reference Range Interpretation Comments WBC (test code = 1001) 8.2 K/UL RBC (test code = 1002) 4.75 M/UL HEMOGLOBIN (test code = 1003) 13.1 G/DL HEMATOCRIT (test code = 1004) 38.8 % MCV (test code = 1005) 81.7 fL MCH (test code = 1006) 27.6 PG MCHC (test code = 1007) 33.8 G/DL RDW (test code = 1038) 13.6 % NEUTROPHILS (test code = 1008) 67.2 % LYMPHOCYTES (test code = 1010) 23.3 % MONOCYTES (test code = 1011) 5.5 % EOSINOPHILS (test code = 1012) 3.0 % BASOPHILS (test code = 1013) 0.5 % IMMATURE GRANULOCYTES (test 0.5 % code = 1036) NUCLEATED RBCS (test code = 0.0 /100WBC'S 1065) PLATELET COUNT (test code = 294 K/UL 1015) ABSOLUTE NEUTROPHILS (test code 5.54 K/UL = 1066) ABSOLUTE LYMPHOCYTES (test code 1.92 K/UL = 1067) ABSOLUTE MONOCYTES (test code = 0.45 K/UL 1068) ABSOLUTE EOSINOPHILS (test code 0.25 K/UL = 1040) ABSOLUTE BASOPHILS (test code = 0.04 K/UL 1069) ABS IMMATURE GRANULOCYTES (test 0.04 K/UL code = 1020) ABS NUCLEATED RBCS (test code = 0.00 K/UL 57606) CBC W/AUTO [id number] 00:00:00 Test Item Value Reference Range Interpretation Comments WBC (test code = 1001) 8.2 K/UL RBC (test code = 1002) 4.75 M/UL HEMOGLOBIN (test code = 1003) 13.1 G/DL HEMATOCRIT (test code = 1004) 38.8 % MCV (test code = 1005) 81.7 fL MCH (test code = 1006) 27.6 PG MCHC (test code = 1007) 33.8 G/DL RDW (test code = 1038) 13.6 % NEUTROPHILS (test code = 1008) 67.2 % LYMPHOCYTES (test code = 1010) 23.3 % MONOCYTES (test code = 1011) 5.5 % EOSINOPHILS (test code = 1012) 3.0 % BASOPHILS (test code = 1013) 0.5 % IMMATURE GRANULOCYTES (test 0.5 % code = 1036) NUCLEATED RBCS (test code = 0.0 /100WBC'S 1065) PLATELET COUNT (test code = 294 K/UL 1015) ABSOLUTE NEUTROPHILS (test code 5.54 K/UL = 1066) ABSOLUTE LYMPHOCYTES (test code 1.92 K/UL = 1067) ABSOLUTE MONOCYTES (test code = 0.45 K/UL 1068) ABSOLUTE EOSINOPHILS (test code 0.25 K/UL = 1040) ABSOLUTE BASOPHILS (test code = 0.04 K/UL 1069) ABS IMMATURE GRANULOCYTES (test 0.04 K/UL code = 1020) ABS NUCLEATED RBCS (test code = 0.00 K/UL 17760) COMPREHENSIVE METABOLIC [id number] 00:00:00 Test Item Value Reference Range Interpretation Comments GLUCOSE (test code = 2217) 274 MG/DL BUN (test code = 2208) 12 MG/DL CREATININE (test code = 2214) 0.45 MG/DL eGFR (2020 CKD-EPI) (test 133 ML/MIN/1.73 code = 38554) CALC BUN/CREAT (test code = 27 RATIO 2235) SODIUM (test code = 2231) 138 MEQ/L POTASSIUM (test code = 2228) 4.7 MEQ/L CHLORIDE (test code = 2215) 99 MEQ/L CARBON DIOXIDE (test code = 25 MEQ/L 2205) CALCIUM (test code = 2209) 9.7 MG/DL PROTEIN, TOTAL (test code = 7.5 G/DL 2228) ALBUMIN (test code = 2201) 4.4 G/DL CALC GLOBULIN (test code = 3.1 G/DL 2239) CALC A/G RATIO (test code = 1.4 RATIO 2233) BILIRUBIN, TOTAL (test code = 0.3 MG/DL 2206) ALKALINE PHOSPHATASE (test 114 U/L code = 2204) AST (test code = 2218) 35 U/L ALT (test code = 2219) 45 U/L [id number] 00:00:00 Test Item Value Reference Range Interpretation Comments TSH, THIRD GENERATION (test code 1.770 UIU/ML = 2821) [id number] 00:00:00 Test Item Value Reference Range Interpretation Comments TSH, THIRD GENERATION (test code 1.770 UIU/ML = 2821) POCT [id number] 14:31:00 Test Item Value Reference Range Interpretation Comments POCT PREG (test code = 1605) Negative On board controls acceptable with C Yes Line (test code = 3575) POCT PREG LOT # (test code = 3572) POCT PREG TEST DATE (test code = 3576) [facility]
--- NOTE | 2022-10-06 02:23 | ER ---
Nurse's Notes [facility] Name: Chano Washington Age: 32 yrs Sex: Female : 1990 Arrival Date: 10/05/2022 Time: 23:13 Bed External Waiting Private MD: Diagnosis: ED Course: 10/05 23:13 Patient arrived in ED. bp1 23:30 [facility]re[facility] Will[facility]-C [facility] kb 23:30 Froilan Martinez MD is Attending Physician. kb Administered Medications: No medications were administered Outcome: 23:43 Patient left the ED. vc1 Signatures: Tereza Willams FNP-C FNP-CkRebeca Washington bp1 Josselyn Lyons RN RN vc1 Corrections: (The following items were deleted from the chart) 10/06 02:23 02:22 Patient left the ED. vc1 vc1
== END 2022-10-06 02:22 | disposition left against medical advice (07) ==
LOC: ER 23:08
DX: Z02.9 Encounter for administrative examinations, unspecified (principal)

== ENCOUNTER 2023-02-05 15:50 | Emergency (ER) | payer OTHER ==
--- OUTSIDE RECORDS SUMMARY | 2023-02-05 15:58 | XMS REPORT | Continuity of Care Document ---
:1990 Author Organization [facility] t Address [address] [facility] [address] [place] [address] Care Team Providers Name Role Phone PCP, PATIENT DOES NOT HAVE A Primary Care Physician Unavailyojana Rolon Attending Clinician Unavailable SOPHIA RAMOS Attending Clinician Unavailable MARK COFFEY Attending Clinician Unavailable Nurse, Adc Pob Immunization Attending Clinician Unavailable Mark Coffey DO Attending Clinician Sophia Ramos MD Attending Clinician Maury Verduzco PA-C Attending Clinician Doctor Unassigned, [place] Attending Clinician Unavailable MAURY VERDUZCO Attending Clinician Unavailable Juan Diego HUERTA, Isabella Anthony Attending Clinician Unavailable JOHNNIE GUTIERREZ Attending Clinician Unavailable Lucia Le MD Attending Clinician HARVEY NARAYANAN Attending Clinician Unavailable Room, [facility] Attending Clinician Unavailable Ultrasound, [facility] Attending Clinician Unavailable Johnnie Gutierrez MD Attending Clinician Harvey Narayanan MD Attending Clinician Joaquin Granger MD Attending Clinician Ultrasound, [place] Attending Clinician Unavailable Gordon Callahan MD, Ifeoma Attending Clinician [phone] Deya Coffey MD Attending Clinician Tiki Del Valle Attending Clinician Unavailable Cesar Hinojosa MD Attending Clinician CESAR HINOJOSA Attending Clinician Unavailable 2, [facility] Attending Clinician Unavailable Ting Ornelas MD Attending Clinician TING ORNELAS Attending Clinician Unavailable Gela HUERTA, Joleen Attending Clinician Unavailable ANNABELLE MOHR Attending Clinician Unavailable Nurse, [facility] Attending Clinician Unavailable Pob, [facility] Attending Clinician Unavailable Ольга Admitting Clinician Unavailable Sophia Ramos MD Admitting Clinician Lucia Le MD Admitting Clinician SOPHIA RAMOS Admitting Clinician Unavailable Payers Payer Name Policy Type Policy Number Effective Date Expiration Date [employer] [id number] 2020 [facility] MEDICAID 00:00:00 [facility] [id number] 2016 [facility] 00:00:00 (MEDICAID HMO) [place]ICAID OF [place] [id number] 2020 00:00:00 Problems Condition Condition Condition Status [...] 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 00:00: [place] [...] Active Univers ALLERGIE Class ity of S [facility] Social History Social Habit Start Date Stop Date Quantity Comments Source Exposure to Not sure [facility] SARS-CoV-2 [place] [facility] (event) Branch Alcohol intake 2021-09-20 2021-09-20 Ex-drinker [facility] 00:00:00 00:00:00 (finding) [facility] Tobacco use and 2020-11-30 2020-11-30 Never used Universit y of exposure 00:00:00 00:00:00 [facility] Sex Ass[birth year] At [birth year] Universit y of 00:00:00 00:00:00 [facility] Smoking Status Start Date Stop Date Source Never smoker [facility] Medications Ordered Filled Start Stop Current [...] 6-16 tablet 00:00: 00 &lt 2022-0 No 6-09 00:00: [...] mg capsule 2-28 00:00: 00 Prozac 10 2020-1 No 1mg mg capsule 2-28 00:00: 00 Prozac 10 2020-1 No 1mg mg capsule 2-28 00:00: 00 Prozac 10 2021-1 No 1mg mg capsule 2-28 00:00: 00 FLUoxetine 2020-11 Yes [id number] 20mg Take 1 U nivers 20 mg 0-01 capsule by ity of capsule 00:00: mouth [place] 00 daily. Medical Branch miSOPROStoL 2020-11 Yes [id number] 200ug Take 1 Univers 200 mcg 0-01 tablet by ity of tablet 00:00: mouth [place] 00 SEE-INSTRU Medical CTIONS. Branch Take one tab the night before and one tab the morning of procedure acetaminoph 2020- No [id number] 650mg Take 2 Univers en 325 mg 07-24 tablets by ity of tablet 00:00: 00:00 mouth [place] 00 :00 every 6 Medical (six) Branch hours as needed for Pain (scale 1-3) or Pain (scale 4-6). 2020- No [id number] 1{tbl} Take 1 Univers vitamin 07-24 tablet by ity of w/FA tablet 00:00: 00:[place] :00 daily. Medical [place] docusate 2020- No [id number] 240mg Take 1 U nivers calcium 240 07-24 capsule by i ty of mg capsule 00:00: 00:00 mouth once [place] 00 :00 daily as Medical needed for Branch Constipati on. ferrous 2020- No [id number] 325mg Take 1 Un kelly sulfate 325 07-24 tablet by it y of mg (65 mg 00:00: 00:00 mouth [place] iron) 00 :00 (two) Medical tablet times Branch daily. ibuprofen 2020- No [id number] 600mg Take 1 Univers 600 mg 07-24 [...] 100 00 unit/mL injection solution aspirin 81 2021-0 No 1mg mg chewable 5-06 tablet 00:00: [...] mg 5-06 tablet 00:00: 00 Humulin N 1-0 No 1unit/m NPH U-100 5-06 L Insulin [...] 10 mg 5-06 tablet 00:00: 00 ondansetron 2020-1 No 1mg 8 mg 2-02 disintegrat 00:00: ing tablet 00 ondansetron 2020-1 No 1mg 8 mg 2- disintegrat 00:00: ing tablet 00 ondansetron 2019-1 No 1mg 8 mg 2- disintegrat 00:00: ing tablet 00 ondansetron 2019- No 1mg 8 mg 2- disintegrat 00:00: ing tablet 00 ondansetron 2019- No 1mg 8 mg 2- disintegrat 00:00: ing tablet 00 Zofran 8 mg 2020-0 No 1mg tablet 7- 00:00: 00 ibuprofen 2020-0 No 1mg 800 mg 7-28 tablet 00:00: 00 Zofran 8 mg 2020-0 No 1mg tablet 7 00:00: 00 ibuprofen 2020-0 No 1mg 800 mg 7-28 tablet 00:00: 00 Zofran 8 mg 2020-0 No 1mg tablet 7 00:00: 00 ibuprofen 2020-0 No 1mg 800 mg 7-28 tablet 00:00: 00 Zofran 8 mg 2020-0 No 1mg tablet 7 00:00: 00 ibuprofen 2020-0 No 1mg 800 mg 7-28 tablet 00:00: 00 Zofran 8 mg 2020-0 No 1mg tablet 7- 00:00: 00 ibuprofen 2020-0 No 1mg 800 mg 7-28 tablet 00:00: 00 Immunizations Ordered Filled Immunization Date Status Comments [facility] e Immunization Name Name SARS-COV-2 COVID-19 2021-09-20 Completed Unive rsity of PFIZER VACCINE 00:00:00 [facility] TDAP 2021-05-05 Completed [facility] 00:00:00 [facility] SARS-COV-2 COVID-19 2021-03-03 Completed Unive rsity of PFIZER VACCINE 00:00:00 [facility] SARS-COV-2 COVID-19 2021-02-10 Completed Unive rsity of PFIZER VACCINE 00:00:00 [facility] Influenza Virus 2020-12-16 Completed Universit y of Vaccine Quad .5 mL 00:00:00 [facility] 6+ MO Branch Vital Signs Vital Name Observation Time Observation Value Comments Source Systolic blood 2021-09-20 14:34:00 117 mm[Hg] Univer sity of pressure [facility] Diastolic blood 2021-09-20 14:34:00 80 mm[Hg] Unive rsity of [facility] Heart rate 2021-09-20 14:34:00 82 /min [facility] Body temperature 2021-09-20 14:34:00 36.72 [place] [facility] Respiratory rate 2021-09-20 14:34:00 18 /min [facility] Body height 2021-09-20 14:34:[address] [facility] Body weight 2021-09-20 14:34:[address] [facility] BMI 2021-09-20 14:34:00 47.99 kg/m2 [facility] BP Systolic 2022-10-05 13:29:00 126 mm[Hg] BP [...] e POCT TEST 2021-09-20 00:00:[address] [facility] Plan of Care Planned Activity Planned Date Details Comments Source Goal Plan of Care Note [code = 73197-9] Goal Plan of Care Note [code = 95704-8] Goal Plan of Care Note [code = 60834-1] Goal Plan of Care Note [code = 61542-5] Goal Plan of Care Note [code = 47826-5] Goal Plan of Care Note [code = 70084-8] Goal Plan of Care Note [code = 72592-0] Goal Plan of Care Note [code = 09297-5] Goal Plan of Care Note [code = 21395-4] Goal Plan of Care Note [code = 95276-0] Goal Plan of Care Note [code = 84397-4] Goal Plan of Care Note [code = 61586-3] Goal Plan of Care Note [code = 35307-8] Goal Plan of Care Note [code = 24561-2] Goal Plan of Care Note [code = 17200-0] Goal Plan of Care Note [code = 25216-9] Goal Plan of Care Note [code = 26110-5] Goal Plan of Care Note [code = 37150-2] Goal Plan of Care Note [code = 29990-0] Goal Plan of Care Note [code = 38129-3] Goal Plan of Care Note [code = 66233-2] Goal Plan of Care Note [code = 59881-1] Goal Plan of Care Note [code = 02771-5] Goal Plan of Care Note [code = 81896-2] Goal Plan of Care Note [code = 69407-2] Goal Plan of Care Note [code = 61018-2] Goal Plan of Care Note [code = 78782-4] Goal Plan of Care Note [code = 52186-1] Goal Plan of Care Note [code = 99513-8] Goal Plan of Care Note [code = 28669-8] Goal Plan of Care Note [code = 69802-4] Goal Plan of Care Note [code = 11686-2] Goal Plan of Care Note [code = 91506-9] Goal Plan of Care Note [code = 92440-2] Goal Plan of Care Note [code = 26314-6] Goal Plan of Care Note [code = 71813-9] Goal Plan of Care Note [code = 06548-2] Goal Plan of Care Note [code = 14308-3] Goal Plan of Care Note [code = 90431-4] Goal Plan of Care Note [code = 62742-3] Goal Plan of Care Note [code = 22019-9] Goal Plan of Care Note [code = 27399-0] Goal Plan of Care Note [code = 47293-2] Goal Plan of Care Note [code = 09093-2] Goal Plan of Care Note [code = 80331-1] Goal Plan of Care Note [code = 63819-4] Goal Plan of Care Note [code = 46234-9] Goal Plan of Care Note [code = 60272-9] Goal Plan of Care Note [code = 85583-0] Goal Plan of Care Note [code = 55394-8] Goal Plan of Care Note [code = 12906-4] Goal Plan of Care Note [code = 74543-3] Goal Plan of Care Note [code = 65013-9] Goal Plan of Care Note [code = 87815-8] Goal Plan of Care Note [code = 48121-8] Goal Plan of Care Note [code = 03099-2] Goal Plan of Care Note [code = 90759-9] Goal Plan of Care Note [code = 88664-9] Goal Plan of Care Note [code = 81531-3] Goal Plan of Care Note [code = 64861-3] Goal Plan of Care Note [code = 92193-6] Goal Plan of Care Note [code = 65287-0] Goal Plan of Care Note [code = 31086-6] Goal Plan of Care Note [code = 11355-2] Encounters Start End Encounter Admission Attending Care Care Encounter Source Date/Time Date/Time Type Type Clinicians Facility Department ID 2021-09-20 Emergency [facility] [id number] Univers 17:05:22 [facility] 2023-02-01 2023-02-01 Outpatient [facility] [id number] Yonathan 10:04:46 10:04:46 0315 F [place] 2022-10-06 2022-10-06 Outpatient SHAWN ESCOBAR [id number] Yonathan 13:24:42 13:24:42 1117 F Teo 2022-10-05 2022-10-05 Outpatient [facility] [id number] Yonathan 13:20:03 13:20:03 1116 [place] 2022-10-05 2022-10-05 Outpatient [id number] p88097-o 00:00:00 00:00:00 Visit w9f7-9l97 3m1-0u19-f -cn20-46b g52-37b3r9 3q1zb3377 pd5783 2022-09-28 2022-09-28 Outpatient SHAWN ESCOBAR [id number] Yonathan 13:33:05 13:33:05 1109 F Teo 2022-09-28 2022-09-28 Outpatient [id number] 00:00:00 00:00:00 Visit 617f-42f4 17f-42f4-9 -9613-319 613-54353y 89fd2yn90 f8fd79 2022-09-21 2022-09-21 Outpatient SFA SFA [id number] Yonathan 13:16:31 13:16:31 1102 F Teo 2022-09-21 2022-09-21 Outpatient [id number] [id number] 00:00:00 00:00:00 Visit ph8p-548x p6r-972e-k -l0t3-947 0d4-080894 916c6n8r3 b8d2c7 2022-09-14 2022-09-14 Outpatient SFA SFA [id number] Yonathan 17:00:13 17:00:13 1026 F Teo 2022-09-14 2022-09-14 Outpatient [id number] 30z68n-8 00:00:00 00:00:00 Visit 29ee-44e7 9ee-44e7-9 -9155-05a 155-05a7c6 2v83ztt48 2ecc27 2022-06-07 2022-06-07 Outpatient dczwv5ib- [id number] rvu4bz-g 00:00:00 00:00:00 Visit l303-3519 603-4497-8 -853f-f01 53f-f01b49 i80fz6u1v cd3b5a 2022-03-11 2022-03-11 Outpatient [facility] [address] [place] 12:15:00 12:15:00 dquist 0422 da [facility] 2021-10-11 2021-10-11 Outpatient SOPHIA MAX [facility] [id number] Univers 15:30:00 15:30:00 ity [facility] 2021-09-20 2021-09-20 Outpatient Yasmin COFFEY [facility] [id number] Univers 10:40:00 10:40:00 MARK ity [facility] 2021-09-20 2021-09-20 Imm/Inj Nurse, Adc Pob Immunization [facility] 1.2.840.114 [id number] Univers 10:01:19 10:01:29 Visit Mark Coffey ISH 350.1.13 .10 ity of [facility] 4.2.[place].2.[place] PROF[place] [phone] Ga dical NAL [address] [facility] 2021-09-20 2021-09-20 Outpatient R SOPHIA RAMOS [facility] [id number] Univers 09:00:00 09:50:24 ity [facility] 2021-09-20 2021-09-20 Office Sophia Ramos [facility] [id number] Univers 08:58:57 09:50:24 Visit Magdaleno DENG 350.1.13.10 i ty of [facility] 4.2.7.2.[place] [phone] Ga dical NAL [address] [place] [address] 2021-09-15 2021-09-15 [facility] 1.2.077.468 [id number] Univers 00:00:00 00:00:00 Maury DENG 350.1.13.10 i ty of [facility] 4.2.7.2.686 [place] [phone] Ga dical NAL [address] [place] [address] 2021-08-27 2021-08-27 Outpatient R SOPHIA RAMOS [facility] [id number] Univers 15:00:00 15:00:00 ity [facility] 2021-08-20 2021-08-20 Routine Richard Sophia [facility] 1.2.840.114 [id number] Univers 12:16:35 12:43:55 Cam Imer 350.1.13.10 i ty of Visit [facility] 4.2.7.2.686 [place] [facility] [phone] [address] 2021-08-20 2021-08-20 Outpatient R SOPHIA RAMOS [facility] [id number] Univers 12:15:00 12:15:00 ity [facility] 2021-08-06 2021-08-06 Outpatient R SOPHIA RAMOS [facility] [id number] Univers 14:30:00 14:30:00 ity of [facility] 2021-08-05 2021-08-05 Case Richard [facility] [id number] [id number] Univers 00:00:00 00:00:00 Management Cam [place] 350.1.13.10 ity of [place] 4.2.7.2.[place] Profess[place] [phone] [address] 2021-08-02 2021-08-02 Routine Richard [facility] 1.2.733.331 [id number] Univers 13:56:54 15:08:04 Cam [place] 350.1.13.10 ity of Visit [place] 4.2.7.2.686 [place] Profess[place] [phone] [address] 2021-08-02 2021-08-02 Outpatient R SOPHIA RAMOS [facility] [id number] Univers 14:00:00 14:00:00 ity of [facility] 2021-08-02 2021-08-02 Orders Doctor KENIA 1.2.840.114 [id number] Univers 00:00:00 00:00:00 Only Unassigned, GLORIA 350.1.13.10 ity of [place] [facility] 4.2.7.2.686 Jesse as [phone] [address] 2021-07-27 2021-07-27 [facility] 1.2.179.784 [id number] Univers 11:14:29 11:48:13 Maury Ish 350.1.13.10 ity of Visit [place] 4.2.7.2.[place] [phone] [address] 2021-07-27 2021-07-27 Outpatient R LUBA [facility] [id number] Univers 11:30:00 11:30:00 MAURY ity [facility] 2021-07-27 2021-07-27 Telephone Richard [facility] 1.2.840.114 [id number] Univers 00:00:00 00:00:00 Cam [place] 350.1.13.10 i ty of [place] 4.2.7.2.686 [place] [phone] Ga dical [facility] 134 Branch [facility] 2021-07-26 2021-07-26 Nurse KENIA Adamson 1.2.840.114 [id number] Univers 00:00:00 00:00:00 Triage Isabella CASTRO 350.1.13.10 ity of [facility] 4.2.7.2.686 Jesse [phone] [facility] 019 Branch 2021-07-23 2021-07-25 Hospital [facility] 1.2.840.114 [id number] Univers 17:20:00 20:30:00 Encounter Cam [place] 350.1.13.10 ity of [place] 4.2.7.2.686 [facility] [place] [phone] [facility] 083 Branch 2021-07-23 2021-07-23 Surgery [facility] 1.2.496.312 [id number] Univers 18:45:00 20:03:00 Cam [place] 350.1.13.10 i ty of [place] 4.2.7.2.686 [facility] [phone] [facility] 013 Branch 2021-07-23 2021-07-23 Routine [facility] 1.2.840.114 [id number] Univers 13:45:42 15:05:55 Cam I[place] 350.1.13.10 i ty of Visit Women's 4.2.7.2.686 [place] [facility] [phone] [facility] 134 Branch 2021-07-23 2021-07-23 Outpatient R [facility] [id number] Univers 14:00:00 14:00:00 ity of [facility] 2021-07-22 2021-07-22 Refill [facility] 1.2.347.576 [id number] Univers 00:00:00 00:00:00 Cam [place] 350.1.13.10 i ty of [place] 4.2.7.2.[place] [phone] Ga dic[address] 2021-07-20 2021-07-20 Telephone Sophia Ramos [facility] 1.2.840.114 [id number] Univers 00:00:00 00:00:00 Cam [place] 350.1.13.10 i ty of [place] 4.2.7.2.686 [place] [id number] [address] 2021-07-15 2021-07-15 Outpatient P BILLYSATHISH [facility] [id number] Univers 15:30:00 15:30:00 [facility] 2021-07-09 2021-07-10 [facility] Rey Lucia Mario [facility] 1.2.840.11 [id number] Univers 19:18:00 03:20:00 Encounter Raheem Ramosirma Deng 350.1.13.10 ity of [place] 4.2.7.2.686 [place] [phone] [address] 2021-07-09 2021-07-09 Outpatient P RADHA [facility] [id number] Univers 13:00:00 13:00:00 HARVEY ity [facility] 2021-07-09 2021-07-09 Outpatient R RICHARD SOPHIA [facility] [id number] Univers 00:00:00 00:00:00 ity [facility] 2021-07-09 2021-07-09 Outpatient R RICHARD SOPHIA [facility] TONIE [id number] Univers 00:00:00 00:00:00 ity [facility] 2021-07-09 2021-07-09 Telephone Richard Sophia [facility] 1.2.840.114 [id number] Univers 00:00:00 00:00:00 Cam [place] 350.1.13.10 i ty of [place] 4.2.7.2.[place] [phone] [address] 2021-07-09 2021-07-09 Refill Sophia Ramos [facility] 1.2.523.703 [id number] Univers 00:00:00 00:00:00 Cam [place] 350.1.13.10 i ty of [place] 4.2.7.2.[place] [phone] Ga dical nal 134 [facility] 2021-07-08 2021-07-08 Routine Room, [facility] 1.2.840.1 [id number] Univers 13:57:22 15:35:53 RichardSophia Magdaleno Deng 350.1.13.10 ity of Visit [place] 4.2.7.2.686 [place] [phone] Ga dical nal [address] [place] [address] 2021-07-08 2021-07-08 Outpatient R [facility] [id number] Univers 14:00:00 14:00:00 ity of [facility] 2021-07-06 2021-07-06 Routine Maury Verduzco [facility] 1.2.840.11 [id number] Univers 14:58:44 15:44:11 Sophia Ramos 350.1.13.10 ity of Visit [place] 4.2.7.2.686 [place] [phone] Ga dical nal [address] [place] [address] 2021-07-06 2021-07-06 Outpatient R SOPHIA RAMOS [facility] [id number] Univers 09:45:00 09:45:00 ity of [facility] 2021-07-06 2021-07-06 Telephone Sophia Ramos [facility] 1.2.840.114 [id number] Univers 00:00:00 00:00:00 Magdaleno Deng 350.1.13.10 i ty of [place] 4.2.7.2.[place] [phone] Ga dical nal 134 [facility] 2021-07-01 2021-07-01 Acute Coordinator Ultrasound, [facility] 1.2 .840.114 [id number] Univers 14:55:13 15:25:13 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 350.1.13.10 ity of Harvey Narayanan [place] 4.2.7.2.686 [place] Professio [phone] Ga dical nal 134 [facility] 2021-07-01 2021-07-01 Routine Room, [facility] 1.2.840.1 14 [id number] Univers 13:57:30 14:54:38 Sophia Ramos [place] 350.1.13.10 ity of [place] 4.2.7.2.686 [place] [phone] [address] 2021-07-01 2021-07-01 Outpatient R [facility] [id number] Univers 14:00:00 14:00:00 ity of [facility] 2021-06-24 2021-06-24 Acute Coordinator Ultrasound, [facility] 1.2 .840.114 [id number] Univers 14:37:14 15:07:14 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 350.1.13.10 ity of Joaquin [place] 4.2.7.2.686 [place] Professio [phone] [address] 2021-06-24 2021-06-24 Routine Room, [facility] 1.2.840.1 14 [id number] Univers 13:54:48 14:36:35 Sophia Ramos [place] 350.1.13.10 ity of [place] 4.2.7.2.686 [place] [phone] [address] 2021-06-24 2021-06-24 Outpatient R [facility] [id number] Univers 14:00:00 14:00:00 ity of [facility] 2021-06-17 2021-06-17 Acute Coordinator Ultrasound, [facility] 1.2 .840.114 [id number] Univers 15:06:21 15:36:21 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 350.1.13.10 ity of [place] 4.2.7.2.[place] [phone] [address] 2021-06-17 2021-06-17 Routine Room, [facility] 1.2.840.1 14 [id number] Univers 13:55:34 15:05:51 Sophia Ramos [place] 350.1.13.10 ity of [place] 4.2.7.2.686 [place] [phone] Ga dical [address] 2021-06-17 2021-06-17 Outpatient R [facility] [id number] Univers 14:00:00 14:00:00 ity of [facility] 2021-06-10 2021-06-10 Routine Room, [facility] 1.2.840.1 14 [id number] Univers 13:50:29 16:04:58 Sophia Ramos [place] 350.1.13.10 ity of [place] 4.2.7.2.686 [place] [phone] [address] 2021-06-10 2021-06-10 Outpatient R [facility] [id number] Univers 14:00:00 14:00:00 ity of [facility] 2021-06-08 2021-06-08 Acute [facility] 1.2 .840.114 [id number] Univers 15:02:20 15:43:48 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 350.1.13.10 ity of [facility] [place] 4.2.7.2 .686 [place] MATERNAL [phone] [facility] ical & CHILD [address] [place] [address] 2021-06-08 2021-06-08 Outpatient P STEPHANY [facility] [id number] Univers 15:15:00 15:15:00 JOHNNIE ity of [facility] 2021-06-05 2021-06-05 Case Raheem Ramosen [facility] 1.2.271.636 [id number] Univers 00:00:00 00:00:00 Management Magdaleno Deng 350.1.13.10 ity of [place] 4.2.7.2.[place] [phone] Ga dicdc nal [address] [place] [address] 2021-06-03 2021-06-03 Routine Sophia Ramos [facility] 1.2.676.253 [id number] Univers 16:06:13 17:17:00 Cam Ish 350.1.13.10 ity of [place] 4.2.7.2.686 [place] [phone] Me dical nal [address] [place] [address] 2021-06-03 2021-06-03 Outpatient R SOPHIA RAMOS [facility] [id number] Univers 16:15:00 16:15:00 ity of [facility] 2021-05-17 2021-05-17 Acute Coordinator Ultrasound, Sonia [facility] 1.2 .840.114 [id number] Univers 15:14:22 15:44:22 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 350.1.13.10 ity of Deya Coffey [facility] 4.2.7.2.686 [place] MATERNAL [phone] [facility] ical & CHILD [facility] [place] [facility] 2021-05-17 2021-05-17 Outpatient P [facility] [id number] Univers 15:30:00 15:30:00 ity of [facility] 2021-05-11 2021-05-11 Outpatient P STEPHANY [facility] [id number] Univers 15:15:00 15:15:00 JOHNNIE ity [facility] 2021-05-07 2021-05-07 Telemedici Tiki Del Valle [facility] 1.2.8 40.114 [id number] Univers 11:10:03 11:54:04 ne Visit Cesar Hinojosa 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 350.1.13.10 ity of [employer] 4.2.7.2.686 Jesse as MATERNAL [phone] [facility] CHILD [address] [place] [address] 2021-05-07 2021-05-07 Outpatient P CESAR HINOJOSA [facility] [id number] Univers 11:15:00 11:15:00 ity of [facility] 2021-05-05 2021-05-05 Routine Sophia Ramos [facility] 1.2.977.971 [id number] Univers 16:01:04 17:03:26 Cam [place] 350.1.13.10 it[place] of [place] [phone] Ga dical nal [address] [place] [address] 2021-05-05 2021-05-05 Outpatient R SOPHIA RAMOS [facility] [id number] Univers 16:15:00 16:15:00 ity of [facility] 2021-05-05 2021-05-05 Orders Doctor KENIA 1.2.840.114 [id number] Univers 00:00:00 00:00:00 Only Unassigned, GLORIA 350.1.13.10 ity of [place] [facility] 4.2.7.2.686 Jesse as [phone] [address] 2021-04-22 2021-04-22 Acute Coordinator 2, Adc Lab [facility] 1.2.840.114 [id number] Univers 14:59:06 15:14:06 Visit Ting Ornelas 350.1.13. 10 ity of Sophia Ramos 4.2.7.2.686 [place] [phone] Ga dical nal 353 [facility] 2021-04-22 2021-04-22 Office Johnson [facility] 1.2.840.114 [id number] Univers 13:33:27 14:47:33 Visit Ting Deng 350.1.13.10 it[place] of [place] [phone] Ga dical nal 059 [facility] 2021-04-22 2021-04-22 Outpatient R JOHNSON [facility] [id number] Univers 14:00:00 14:00:00 SENDIL ity of [facility] 2021-04-21 2021-04-21 Routine Sophia Ramos [facility] [id number] Univers 15:33:13 16:44:19 Magdaleno Deng 350.1.13.10 ity [place] [phone] Ga dical nal 134 [facility] 2021-04-21 2021-04-21 Outpatient R SOPHIA RAMOS [facility] [id number] Univers 16:00:00 16:00:00 ity of [facility] 2021-04-14 2021-04-14 Telephone Sophia Ramos [facility] 1.2.840.114 [id number] Univers 00:00:00 00:00:00 Cam [place] 350.1.13.10 i ty [place] [phone] [address] 2021-04-13 2021-04-13 Acute Coordinator Ultrasound, Jasbirmaximino [facility] 1.2 .840.114 [id number] Univers 14:47:35 15:17:35 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 350.1.13.10 ity [facility] 4.2.7.2.686 Jesse as MATERNAL [phone] Med ical & CHILD [address] [place] [address] 2021-04-13 2021-04-13 Outpatient P [facility] [id number] Univers 15:00:00 15:00:00 ity of [facility] 2021-04-01 2021-04-01 Outpatient R JOHNOSN [facility] [id number] Univers 16:00:00 16:00:00 SENDIL ity [facility] 2021-03-27 2021-03-27 Nurse Joleen Ren 1.2.840.114 [id number] Univers 00:00:00 00:00:00 Triage GLORIA 350.1.13.10 it y of [facility] 4.2.7.2.686 Jesse as [phone] [address] 2021-03-24 2021-03-24 Routine Sophia Ramos [facility] 1.2.067.291 [id number] Univers 15:57:14 16:52:15 Cam Ish 350.1.13.10 ity [place] [phone] [address] 2021-03-24 2021-03-24 Outpatient R SOPHIA RAMOS [facility] [id number] Univers 16:00:00 16:00:00 ity [facility] 2021-03-19 2021-03-19 Outpatient Yasmin ORNELAS [facility] [id number] Univers 16:00:00 16:00:00 SENDIL ity [facility] 2021-03-19 2021-03-19 Orders Doctor KENIA 1.2.840.114 [id number] Univers 00:00:00 00:00:00 Only Unassigned, GLORIA 350.1.13.10 ity of [place] [facility] 4.2.7.2.686 Jesse as [phone] [address] 2021-03-16 2021-03-16 Telephone Sophia Ramos [facility] 1.2.840.114 [id number] Univers 00:00:00 00:00:00 Magdaleno Deng 350.1.13.10 i ty [place] [phone] Ga dical nal 134 [facility] 2021-03-15 2021-03-15 Acute Coordinator [facility] 1.2 .840.114 [id number] Univers 14:24:13 15:48:19 Visit Deya Coffey 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 350.1.13.10 ity of [employer] 4.2.7.2.686 Jesse as MATERNAL [phone] Med ical & CHILD [address] [place] [address] 2021-03-15 2021-03-15 Outpatient P [facility] [id number] Univers 14:00:00 14:00:00 ity of [facility] 2021-03-11 2021-03-11 Office Johnson [facility] 1.2.840.114 [id number] Univers 14:27:16 15:29:48 Visit Ting Deng 350.1.13.10 ity [facility] [place] [phone] Ga dical nal 059 [facility] 2021-03-11 2021-03-11 Outpatient R JOHNSON [facility] [id number] Univers 14:30:00 14:30:00 SENDIL ity [facility] 2021-03-10 2021-03-10 Routine Sophia Ramos [facility] 1.2.476.240 [id number] Univers 15:31:10 16:51:56 Magdaleno Deng 350.1.13.10 ity [place] [phone] Ga dical nal 134 [facility] 2021-03-10 2021-03-10 Outpatient R SOPHIA RAMOS [facility] [id number] Univers 15:30:00 15:30:00 ity of [facility] 2021-03-03 2021-03-03 Outpatient R ONUR [facility] [id number] Univers 16:10:00 16:10:00 ANNABELLE ity [facility] 2021-03-01 2021-03-01 Telephone Sophia Ramos [facility] 1.2.840.114 [id number] Univers 00:00:00 00:00:00 Cam [place] 350.1.13.10 i ty [place] [phone] Ga dical nal [address] [place] [address] 2021-02-26 2021-02-26 Telephone Sophia Ramos [facility] 1.2.840.114 [id number] Univers 00:00:00 00:00:00 Cam [place] 350.1.13.10 i ty [place] [phone] Ga dical nal 134 [facility] 2021-02-25 2021-02-25 Acute Coordinator 2, [facility] 1.2.840.114 [id number] Univers 16:06:42 16:21:42 Visit Sophia Ramos Magdaleno [place] 350.1.13.10 ity of [place] [phone] Ga diclaura verma 353 [facility] 2021-02-25 2021-02-25 [facility] 1.2.065.925 [id number] Univers 15:09:20 15:59:18 Cam [place] 350.1.13.10 ity of [place] [phone] Ga dical nal [address] [place] [address] 2021-02-25 2021-02-25 Outpatient R SOPHIA RAMOS [facility] [id number] Univers 15:15:00 15:15:00 ity of [facility] 2021-02-25 2021-02-25 Case Sophia Ramos [facility] 1.2.155.854 [id number] Univers 00:00:00 00:00:00 Management Cam [place] 350.1.13.10 ity of [place] [phone] Ga dical nal [address] [place] [address] 2021-02-24 2021-02-24 Orders Doctor KENIA 1.2.840.114 [id number] Univers 00:00:00 00:00:00 Only Unassigned, GLORIA 350.1.13.10 ity of [place] [facility] 4.2.7.2.686 Jesse as [phone] [address] 2021-02-23 2021-02-23 Telephone Sophia Ramos [facility] 1.2.840.114 [id number] Univers 00:00:00 00:00:00 Cam [place] 350.1.13.10 i ty of [place] [phone] Ga dical nal [address] [place] [address] 2021-02-23 2021-02-23 Telephone Sophia Ramos [facility] 1.2.840.114 [id number] Univers 00:00:00 00:00:00 Cam [place] 350.1.13.10 i ty [place] [phone] Ga dical nal [address] [place] [address] 2021-02-17 2021-02-17 Case Sophia Ramos [facility] 1.2.938.837 [id number] Univers 00:00:00 00:00:00 Management Cam [place] 350.1.13.10 ity of [place] [phone] Ga dical nal 134 [facility] 2021-02-11 2021-02-11 Telephone Sophia Ramos [facility] 1.2.840.114 [id number] Univers 00:00:00 00:00:00 Cam [place] 350.1.13.10 i ty [place] [phone] Ga dical nal 134 [facility] 2021-02-10 2021-02-10 Outpatient R SOPHIA RAMOS [facility] [id number] Univers 15:30:00 15:30:00 ity of [facility] 2021-02-10 2021-02-10 Office Sophia Ramos [facility] 1.2.206.725 [id number] Univers 13:37:36 14:45:28 Visit Cam [place] 350.1.13.10 i ty [place] [phone] [address] 2021-02-10 2021-02-10 Outpatient R ONUR, [facility] [id number] Univers 13:00:00 13:00:00 ANNABELLE ity [facility] 2021-02-10 2021-02-10 Telephone Sophia Ramos [facility] 1.2.840.114 [id number] Univers 00:00:00 00:00:00 Cam [place] 350.1.13.10 i ty [place] [phone] [address] 2021-02-10 2021-02-10 Telephone Sophia Ramos [facility] 1.2.840.114 [id number] Univers 00:00:00 00:00:00 Cam [place] 350.1.13.10 i ty [place] [phone] [address] 2021-02-10 2021-02-10 Telephone Sophia Ramos [facility] 1.2.840.114 [id number] Univers 00:00:00 00:00:00 Cam [place] 350.1.13.10 i ty of [place] [phone] [address] 2021-02-10 2021-02-10 Orders Doctor KENIA 1.2.840.114 [id number] Univers 00:00:00 00:00:00 Only Unassigned, GLORIA 350.1.13.10 ity of [place] [facility] 4.2.7.2.686 Jesse as [phone] [address] 2021-01-27 2021-01-27 Acute Coordinator 2, [facility] 1.2.840.114 [id number] Univers 11:53:30 12:08:30 Visit Sophia Ramos Magdaleno Deng 350.1.13.10 ity of [place] [phone] Ga dical [facility] 353 [facility] 2021-01-27 2021-01-27 Routine Sophia Ramos [facility] 1.2.868.272 [id number] Univers 10:10:43 11:29:11 Magdaleno Deng 350.1.13.10 ity of [facility] [place] [place].2.[place] [phone] Ga dical [facility] 134 [facility] 2021-01-27 2021-01-27 Outpatient R SOPHIA RAMOS [facility] [id number] Univers 11:00:00 11:00:00 ity of [facility] 2021-01-27 2021-01-27 Orders Doctor KENIA 1.2.840.114 [id number] Univers 00:00:00 00:00:00 Only Unassigned, GLORIA 350.1.13.10 ity of [place] [facility] 4.2.7.2.686 Jesse as [phone] [address] 2021-01-14 2021-01-14 Outpatient R SOPHIA RAMOS [facility] [id number] Univers 15:45:00 15:45:00 ity of [facility] 2020-12-31 2020-12-31 [facility] 1.2.283.892 [id number] Univers 14:46:32 15:39:50 Maury Deng 350.1.13.10 ity of [place] [phone] Ga dical [facility] 134 [facility] 2020-12-31 2020-12-31 Outpatient R LUBA [facility] [id number] Univers 14:45:00 14:45:00 MAURY ity of [facility] 2020-12-25 2020-12-25 Nurse Nurse, [facility] 1.2.840.114 [id number] Univers 15:33:50 16:29:38 Visit Sophia Ramos Ish 350.1.13.10 ity of [place] [phone] [address] 2020-12-25 2020-12-25 Outpatient R [facility] [id number] Univers 15:30:00 15:30:00 ity of [facility] 2020-12-24 2020-12-24 Outpatient R [facility] [id number] Univers 15:30:00 15:30:00 ity of [facility] 2020-12-22 2020-12-22 Outpatient R [facility] [id number] Univers 14:30:00 14:30:00 ity [facility] 2020-12-18 2020-12-18 Outpatient R [facility] [id number] Univers 10:30:00 10:30:00 ity [facility] 2020-12-18 2020-12-18 Nurse Joleen Ren 1.2.840.114 [id number] Univers 00:00:00 00:00:00 Triage GLORIA 350.1.13.10 it y of HOSPITAL 4.2.7.2.686 Jesse as [phone] [address] 2020-12-16 2020-12-16 Routine Sophia Ramos [facility] 1.2.444.857 [id number] Univers 16:39:06 17:38:51 Magdaleno Deng 350.1.13.10 ity of [place] [phone] [address] 2020-12-16 2020-12-16 Outpatient R RAHEEM RAMOSEN [facility] [id number] Univers 16:00:00 16:00:00 ity [facility] 2020-12-16 2020-12-16 Orders Doctor AQUINO 1.2.840.114 [id number] Univers 00:00:00 00:00:00 Only Unassigned, GLORIA 350.1.13.10 ity of [place] [facility] 4.2.7.2.686 Jesse as [phone] [address] 2020-12-11 2020-12-11 Nurse Nurse, [facility] 1.2.840.114 [id number] Univers 10:25:46 11:10:23 Visit Sophia Ramos 350.1.13.10 ity of [place] [phone] Me dical nal 134 [facility] 2020-12-11 2020-12-11 Outpatient R [facility] [id number] Univers 10:30:00 10:30:00 ity of [facility] 2020-12-08 2020-12-08 [facility] [id number] Univers 14:15:00 14:15:00 MAURY ity [facility] 2020-12-08 2020-12-08 Acute Coordinator Da, Adc Lab Main [facility] 1.2.8 40.114 [id number] Univers 13:51:56 14:06:56 Visit Maury Verduzco 350.1.13.10 ity [facility] 4[place]2.7.2.[place] [phone] Ga dical nal 353 [facility] 2020-12-08 2020-12-08 Orders Doctor KENIA 1.2.840.114 [id number] Univers 00:00:00 00:00:00 Only Unassigned, GLORIA 350.1.13.10 [facility] 4.2.7.2.686 Jesse as [phone] [address] 2020-12-04 2020-12-04 Outpatient R [facility] [id number] Univers 16:15:00 16:15:00 ity of [facility] 2020-12-04 2020-12-04 Outpatient R [facility] [id number] Univers 11:45:00 11:45:00 ity of [facility] 2020-12-04 2020-12-04 Acute Coordinator 2, Adc Lab [facility] 1.2.840.114 [id number] Univers 10:19:13 10:34:13 Visit Sophia Ramos 350.1.13.10 ity of [place] [phone] [facility] [address] [facility] 2020-12-03 2020-12-03 Case Savannahkatarzyna [facility] 1.2.811.125 [id number] Univers 00:00:00 00:00:00 Management Maury Deng 350.1.13.10 ity of [place] [phone] [address] 2020-12-02 2020-12-02 Acute Coordinator 2, Adc Lab [facility] 1.2.840.114 [id number] Univers 16:12:37 16:27:37 Visit Sophia Ramos 350.1.13.10 ity of [place] [phone] [address] 2020-12-02 2020-12-02 Outpatient R SOPHIA RAMOS [facility] [id number] Univers 16:15:00 16:15:00 ity of [facility] 2020-11-30 2020-11-30 Acute Coordinator Pob, Adc Lab Main [facility] 1.2.8 40.114 [id number] Univers 16:33:32 16:48:32 Visit Sophia Ramos 350.1.13.10 ity of [place]2.[place] [phone] Ga dical nal [address] [place] [address] 2020-11-30 2020-11-30 Initial Maury Verduzco [facility] 1.2.840.11 [id number] Univers 14:37:02 16:22:07 Sophia Ramos 350.1.13.10 ity of [place]2.[place] [phone] [address] 2020-11-30 2020-11-30 Outpatient R SOPHIA RAMOS [facility] [id number] Univers 14:30:00 14:30:00 ity of [facility] 2020-11-30 2020-11-30 Orders Doctor AQUINO 1.2.840.114 [id number] Univers 00:00:00 00:00:00 Only Unassigned, GLORIA 350.1.13.10 ity of [place] [facility] 4.2.7.2.686 Jesse as [phone] [facility] [address] 2020-11-30 2020-11-30 Case Luba, [facility] 1.2.674.651 [id number] Univers 00:00:00 00:00:00 Management Maury Deng 350.1.13.10 ity of [place]7.2.[place] [phone] Ga dical [facility] [address] [facility] 2020-10-07 2020-10-07 Outpatient G_Pappas [facility] [id number] [place] 02:45:00 02:45:00 1118 [facility] Results Test Description Test Time Test Comments Results Result Comments Source HCG, QUANTITATIVE 2023-02-02 06:43:45 Test Item Value Reference Range Interpretation Comme nts HCG, QUANTITATIVE (test 9 MIU/ML SEE BELOW EXPECTED VALUES FOR HCG code = 2506) GST.AGE UNITS RANGE GST. AGE UNITS RANGE3 WEEKS UT U/ML 6-71 10 WEEKS MIU/ML 46,509-186,9774 WEEKS MIU/ML 10-750 12 WEEKS MIU/ML 27 ,832-210,6125 WEEKS MIU/ML 217-7,138 14 WE EKS MIU/ML 13,950-62,5306 WEEKS MIU/ML 15 8-31,795 15 WEEKS MIU/ML 12,039-70,9717 WEEKS MIU/ML 3,697-163,563 16 WEEKS MIU/ML 9,040-56,4518 WEEKS MIU/ML 32,065-1 49,571 17 WEEKS MIU/ML 8,175-55,8689 W EEKS MIU/ML 63,803-151,410 18 WEEKS MIU/ML 8,099-58,176MALES and NON- FE MALES . . . . . . . . MIU/ML 0-5POST- MENOPAUSAL FEMALES . . . . . . . . . . . . MIU/ML <=7 [facility] has important patho logy staff changes effective 01/18. New pathology staff will prov reyna uninterrupted, excellent patie nt care and clinical consultation. S ee URL: [email or web address] UNLESS OTHERWISE INDIC ATED, ALL TESTING [facility] [place] [place] [address] [facility] DIRECTOR: JOHNY WALKER M.D. IA NUMBER [id number] CAP ACCREDITATION N O. [id number] COMPREHENSIVE METABOLIC [id number] 00:00:00 Test Item Value Reference Range Interpretation Comments GLUCOSE (test code = 2217) 185 MG/DL BUN (test code = 2208) 14 MG/DL CREATININE (test code = 2214) 0.51 MG/DL eGFR (2020 CKD-EPI) (test 129 ML/MIN/1.73 code = 04035) CALC BUN/CREAT (test code = 27 RATIO 2235) SODIUM (test code = 2231) 141 MEQ/L POTASSIUM (test code = 2228) 4.8 MEQ/L CHLORIDE (test code = 2215) 103 MEQ/L CARBON DIOXIDE (test code = 26 MEQ/L 2206) CALCIUM (test code = 2209) 9.2 MG/DL PROTEIN, TOTAL (test code = 7.2 G/DL 9) ALBUMIN (test code = 2201) 4.6 G/DL CALC GLOBULIN (test code = 2.6 G/DL 2240) CALC A/G RATIO (test code = 1.8 RATIO 2234) BILIRUBIN, TOTAL (test code = 0.4 MG/DL 2206) ALKALINE PHOSPHATASE (test 88 U/L code = 2204) AST (test code = 2218) 30 U/L ALT (test code = 2219) 46 U/L COMPREHENSIVE METABOLIC [id number] 00:00:00 Test Item Value Reference Range Interpretation Comments GLUCOSE (test code = 2217) 185 MG/DL BUN (test code = 2208) 14 MG/DL CREATININE (test code = 2214) 0.51 MG/DL eGFR (2020 CKD-EPI) (test 129 ML/MIN/1.73 code = 20656) CALC BUN/CREAT (test code = 27 RATIO [...] (test code = 2219) 46 U/L LIPID [id number] 00:00:00 Test Item Value Reference Range Interpretation Comments CHOLESTEROL (test code = 2210) 149 MG/DL TRIGLYCERIDES (test code = 2232) 123 MG/DL HDL CHOLESTEROL (test code = 2220) 41 MG/DL CALC LDL CHOL (test code = 2237) 86 MG/DL RISK RATIO LDL/HDL (test code = 2.10 RATIO 2238) LIPID [id number] 00:00:00 Test Item Value Reference Range Interpretation Comments CHOLESTEROL (test code = 2210) 149 MG/DL TRIGLYCERIDES (test code = 2232) 123 MG/DL HDL CHOLESTEROL (test code = 2220) 41 MG/DL CALC LDL CHOL (test code = 2237) 86 MG/DL RISK RATIO LDL/HDL (test code = 2.10 RATIO 2238) HEMOGLOBIN [id number] 00:00:00 Test Item Value Reference Range Interpretation Comments HEMOGLOBIN A1c (test code = 20474) 6.6 % HEMOGLOBIN [id number] 00:00:00 Test Item Value Reference Range Interpretation Comments HEMOGLOBIN A1c (test code = 73017) 6.6 % HEMOGLOBIN [id number] 00:00:00 Test Item Value Reference Range Interpretation Comments HEMOGLOBIN A1c (test code = 78074) 6.6 % COMPREHENSIVE METABOLIC [id number] 00:00:00 Test Item Value Reference Range Interpretation Comments GLUCOSE (test code = 2217) 185 MG/DL BUN (test code = 2208) 14 MG/DL CREATININE (test code = 2214) 0.51 MG/DL eGFR (2020 CKD-EPI) (test 129 ML/MIN/1.73 code = 27282) CALC BUN/CREAT (test code = 27 RATIO [...] code = 2219) 46 U/L COMPREHENSIVE METABOLIC [id number] 00:00:00 Test Item Value Reference Range Interpretation Comments GLUCOSE (test code = 2217) 185 MG/DL BUN (test code = 2208) 14 MG/DL CREATININE (test code = 2214) 0.51 MG/DL eGFR (2020 CKD-EPI) (test 129 ML/MIN/1.73 code = 03086) CALC BUN/CREAT (test code = 27 RATIO 2235) SODIUM (test code = 2231) 141 MEQ/L POTASSIUM (test code = 2228) 4.8 MEQ/L CHLORIDE (test code = 2215) 103 MEQ/L CARBON DIOXIDE (test code = 26 MEQ/L 220) CALCIUM (test code = 2209) 9.2 MG/DL PROTEIN, TOTAL (test code = 7.2 G/DL 9) ALBUMIN (test code = 2201) 4.6 G/DL CALC GLOBULIN (test code = 2.6 G/DL 2240) CALC A/G RATIO (test code = 1.8 RATIO 2234) BILIRUBIN, TOTAL (test code = 0.4 MG/DL 2206) ALKALINE PHOSPHATASE (test 88 U/L code = 2204) AST (test code = 2218) 30 U/L ALT (test code = 2219) 46 U/L LIPID [id number] 00:00:00 Test Item Value Reference Range Interpretation Comments CHOLESTEROL (test code = 2210) 149 MG/DL TRIGLYCERIDES (test code = 2232) 123 MG/DL HDL CHOLESTEROL (test code = 2220) 41 MG/DL CALC LDL CHOL (test code = 2237) 86 MG/DL RISK RATIO LDL/HDL (test code = 2.10 RATIO 2238) LIPID [id number] 00:00:00 Test Item Value Reference Range Interpretation Comments CHOLESTEROL (test code = 2210) 149 MG/DL TRIGLYCERIDES (test code = 2232) 123 MG/DL HDL CHOLESTEROL (test code = 2220) 41 MG/DL CALC LDL CHOL (test code = 2237) 86 MG/DL RISK RATIO LDL/HDL (test code = 2.10 RATIO 2238) HEMOGLOBIN [id number] 00:00:00 Test Item Value Reference Range Interpretation Comments HEMOGLOBIN A1c (test code = 03900) 6.6 % HEMOGLOBIN [id number] 00:00:00 Test Item Value Reference Range Interpretation Comments HEMOGLOBIN A1c (test code = 79589) 6.6 % HEMOGLOBIN [id number] 00:00:00 Test Item Value Reference Range Interpretation Comments HEMOGLOBIN A1c (test code = 82322) 6.6 % [id number] 06:57:37 Test Item Value Reference Range Interpretation Comments INSULIN (test code = 26 UIU/ML 2-21 H Note: Reference 83242) interval repres ents standard fastin g reference range . HEMOGLOBIN [id number] 06:29:49 Test Item Value Reference Range Interpretation Comments HEMOGLOBIN A1c (test 9.3 % 4.2-5.6 H [employer] AN DIABETES code = 27243) ASSOCIATION IDELINES FOR HGB A1C: PREDIABETES/INC REASED [...] ATE TESTING OR LABORATORY C ONSULTATION. LIPID [id number] 05:02:33 Test Item Value Reference Range Interpretation [...] MOREINFORMATION , SEE CLIENT ANNOUNCE MENT AT [email or web address] RISK RATIO LDL/HDL 2.25 RATIO <3.22 (test code = 2238) COMPREHENSIVE METABOLIC [id number] 05:02:33 Test Item Value Reference Range Interpretation Comments GLUCOSE (test code = 239 MG/DL 70-99 H 2216) BUN (test code = 13 MG/DL 6-20 2207) CREATININE (test 0.40 MG/DL 0.60-1.30 L code = 2214) eGFR (2020 CKD-EPI) 137 >60 (test code = 19609) ML/MIN/1.73 CALC BUN/CREAT (test 33 RATIO 6-28 H code = 2235) SODIUM (test code = 138 MEQ/L 130-416 7684) POTASSIUM (test code 4.8 MEQ/L 3.5-5.4 = 222) CHLORIDE (test code 100 MEQ/L 95-107 = 221) CARBON DIOXIDE (test 24 MEQ/L 19-31 code [...] [Automated message] (test code = 2207) The [employer] which generated this result transmitted ref erence [...] TESTING PERFORM ED [facility], [facility]. [address], [place] [id number] [place] [address] DIRECTOR: OZ PISANO M.D. CLIA NUMBER [id number] CAP ACCREDITATION N O. [id number] 00:00:00 Test Item Value Reference Range Interpretation Comments INSULIN (test code = 68015) 26 UIU/ML [id number] 00:00:00 Test Item Value Reference Range Interpretation Comments INSULIN (test code = 99041) 26 UIU/ML LIPID [id number] 00:00:00 Test Item Value Reference Range Interpretation Comments CHOLESTEROL (test code = 2210) 162 MG/DL TRIGLYCERIDES (test code = 2232) 95 MG/DL HDL CHOLESTEROL (test code = 2220) 44 MG/DL CALC LDL CHOL (test code = 2237) 99 MG/DL RISK RATIO LDL/HDL (test code = 2.25 RATIO 2238) LIPID [id number] 00:00:00 Test Item Value Reference Range Interpretation Comments CHOLESTEROL (test code = 2210) 162 MG/DL TRIGLYCERIDES (test code = 2232) 95 MG/DL HDL CHOLESTEROL (test code = 2220) 44 MG/DL CALC LDL CHOL (test code = 2237) 99 MG/DL RISK RATIO LDL/HDL (test code = 2.25 RATIO 2238) HEMOGLOBIN [id number] 00:00:00 Test Item Value Reference Range Interpretation Comments HEMOGLOBIN A1c (test code = 74071) 9.3 % HEMOGLOBIN [id number] 00:00:00 Test Item Value Reference Range Interpretation Comments HEMOGLOBIN A1c (test code = 85048) 9.3 % HEMOGLOBIN [id number] 00:00:00 Test Item Value Reference Range Interpretation Comments HEMOGLOBIN A1c (test code = 70815) 9.3 % COMPREHENSIVE METABOLIC [id number] 00:00:00 Test Item Value Reference Range Interpretation Comments GLUCOSE (test code = 2217) 239 MG/DL BUN (test code = 2208) 13 MG/DL CREATININE (test code = 2214) 0.40 MG/DL eGFR (2020 CKD-EPI) (test 137 ML/MIN/1.73 code = 23634) CALC BUN/CREAT (test code = 33 RATIO 2235) SODIUM (test code = 2231) 138 MEQ/L POTASSIUM (test code = 2228) 4.8 MEQ/L CHLORIDE (test code = 2215) 100 MEQ/L CARBON DIOXIDE (test code = 24 MEQ/L 220) CALCIUM (test code = 2209) 10.1 MG/DL [...] code = 2219) 54 U/L COMPREHENSIVE METABOLIC [id number] 00:00:00 Test Item Value Reference Range Interpretation Comments GLUCOSE (test code = 2217) 239 MG/DL BUN (test code = 2208) 13 MG/DL CREATININE (test code = 2214) 0.40 MG/DL eGFR (2020 CKD-EPI) (test 137 ML/MIN/1.73 code = 76969) CALC BUN/CREAT (test code = 33 RATIO 2235) SODIUM (test code = 2231) 138 MEQ/L POTASSIUM (test code = 2228) 4.8 MEQ/L CHLORIDE (test code = 2215) 100 MEQ/L CARBON DIOXIDE (test code = 24 MEQ/L 220) CALCIUM (test code = 2209) 10.1 MG/DL [...] ALT (test code = 2219) 54 U/L [id number] 00:00:00 Test Item Value Reference Range Interpretation Comments INSULIN (test code = 62440) 26 UIU/ML [id number] 00:00:00 Test Item Value Reference Range Interpretation Comments INSULIN (test code = 10245) 26 UIU/ML LIPID [id number] 00:00:00 Test Item Value Reference Range Interpretation Comments CHOLESTEROL (test code = 2210) 162 MG/DL TRIGLYCERIDES (test code = 2232) 95 MG/DL HDL CHOLESTEROL (test code = 2220) 44 MG/DL CALC LDL CHOL (test code = 2237) 99 MG/DL RISK RATIO LDL/HDL (test code = 2.25 RATIO 2238) LIPID [id number] 00:00:00 Test Item Value Reference Range Interpretation Comments CHOLESTEROL (test code = 2210) 162 MG/DL TRIGLYCERIDES (test code = 2232) 95 MG/DL HDL CHOLESTEROL (test code = 2220) 44 MG/DL CALC LDL CHOL (test code = 2237) 99 MG/DL RISK RATIO LDL/HDL (test code = 2.25 RATIO 2238) HEMOGLOBIN [id number] 00:00:00 Test Item Value Reference Range Interpretation Comments HEMOGLOBIN A1c (test code = 30627) 9.3 % HEMOGLOBIN [id number] 00:00:00 Test Item Value Reference Range Interpretation Comments HEMOGLOBIN A1c (test code = 60028) 9.3 % HEMOGLOBIN [id number] 00:00:00 Test Item Value Reference Range Interpretation Comments HEMOGLOBIN A1c (test code = 42969) 9.3 % COMPREHENSIVE METABOLIC [id number] 00:00:00 Test Item Value Reference Range Interpretation Comments GLUCOSE (test code = 2217) 239 MG/DL BUN (test code = 2208) 13 MG/DL CREATININE (test code = 2214) 0.40 MG/DL eGFR (2020 CKD-EPI) (test 137 ML/MIN/1.73 code = 51831) CALC BUN/CREAT (test code = 33 RATIO [...] code = 2219) 54 U/L COMPREHENSIVE METABOLIC [id number] 00:00:00 Test Item Value Reference Range Interpretation Comments GLUCOSE (test code = 2217) 239 MG/DL BUN (test code = 2208) 13 MG/DL CREATININE (test code = 2214) 0.40 MG/DL eGFR (2020 CKD-EPI) (test 137 ML/MIN/1.73 code = 58123) CALC BUN/CREAT (test code = 33 RATIO [...] ALT (test code = 2219) 54 U/L [id number] 00:00:00 Test Item Value Reference Range Interpretation Comments INSULIN (test code = 97918) 26 UIU/ML [id number] 00:00:00 Test Item Value Reference Range Interpretation Comments INSULIN (test code = 19582) 26 UIU/ML LIPID [id number] 00:00:00 Test Item Value Reference Range Interpretation Comments CHOLESTEROL (test code = 2210) 162 MG/DL TRIGLYCERIDES (test code = 2232) 95 MG/DL HDL CHOLESTEROL (test code = 2220) 44 MG/DL CALC LDL CHOL (test code = 2237) 99 MG/DL RISK RATIO LDL/HDL (test code = 2.25 RATIO 2238) LIPID [id number] 00:00:00 Test Item Value Reference Range Interpretation Comments CHOLESTEROL (test code = 2210) 162 MG/DL TRIGLYCERIDES (test code = 2232) 95 MG/DL HDL CHOLESTEROL (test code = 2220) 44 MG/DL CALC LDL CHOL (test code = 2237) 99 MG/DL RISK RATIO LDL/HDL (test code = 2.25 RATIO 2238) HEMOGLOBIN [id number] 00:00:00 Test Item Value Reference Range Interpretation Comments HEMOGLOBIN A1c (test code = 83922) 9.3 % HEMOGLOBIN [id number] 00:00:00 Test Item Value Reference Range Interpretation Comments HEMOGLOBIN A1c (test code = 78216) 9.3 % HEMOGLOBIN [id number] 00:00:00 Test Item Value Reference Range Interpretation Comments HEMOGLOBIN A1c (test code = 61318) 9.3 % COMPREHENSIVE METABOLIC [id number] 00:00:00 Test Item Value Reference Range Interpretation Comments GLUCOSE (test code = 2217) 239 MG/DL BUN (test code = 2208) 13 MG/DL CREATININE (test code = 2214) 0.40 MG/DL eGFR (2020 CKD-EPI) (test 137 ML/MIN/1.73 code = 22572) CALC BUN/CREAT (test code = 33 RATIO 5) SODIUM (test code = 2231) 138 MEQ/L [...] code = 2219) 54 U/L COMPREHENSIVE METABOLIC [id number] 00:00:00 Test Item Value Reference Range Interpretation Comments GLUCOSE (test code = 2217) 239 MG/DL BUN (test code = 2208) 13 MG/DL CREATININE (test code = 2214) 0.40 MG/DL eGFR (2020 CKD-EPI) (test 137 ML/MIN/1.73 code = 32290) CALC BUN/CREAT (test code = 33 RATIO [...] ALT (test code = 2219) 54 U/L [id number] 00:00:00 Test Item Value Reference Range Interpretation Comments INSULIN (test code = 30972) 26 UIU/ML [id number] 00:00:00 Test Item Value Reference Range Interpretation Comments INSULIN (test code = 86855) 26 UIU/ML LIPID [id number] 00:00:00 Test Item Value Reference Range Interpretation Comments CHOLESTEROL (test code = 2210) 162 MG/DL TRIGLYCERIDES (test code = 2232) 95 MG/DL HDL CHOLESTEROL (test code = 2220) 44 MG/DL CALC LDL CHOL (test code = 2237) 99 MG/DL RISK RATIO LDL/HDL (test code = 2.25 RATIO 2238) LIPID [id number] 00:00:00 Test Item Value Reference Range Interpretation Comments CHOLESTEROL (test code = 2210) 162 MG/DL TRIGLYCERIDES (test code = 2232) 95 MG/DL HDL CHOLESTEROL (test code = 2220) 44 MG/DL CALC LDL CHOL (test code = 2237) 99 MG/DL RISK RATIO LDL/HDL (test code = 2.25 RATIO 2238) HEMOGLOBIN [id number] 00:00:00 Test Item Value Reference Range Interpretation Comments HEMOGLOBIN A1c (test code = 70568) 9.3 % HEMOGLOBIN [id number] 00:00:00 Test Item Value Reference Range Interpretation Comments HEMOGLOBIN A1c (test code = 24017) 9.3 % HEMOGLOBIN [id number] 00:00:00 Test Item Value Reference Range Interpretation Comments HEMOGLOBIN A1c (test code = 33683) 9.3 % COMPREHENSIVE METABOLIC [id number] 00:00:00 Test Item Value Reference Range Interpretation Comments GLUCOSE (test code = 2217) 239 MG/DL BUN (test code = 2208) 13 MG/DL CREATININE (test code = 2214) 0.40 MG/DL eGFR (2020 CKD-EPI) (test 137 ML/MIN/1.73 code = 96063) CALC BUN/CREAT (test code = 33 RATIO [...] code = 2219) 54 U/L COMPREHENSIVE METABOLIC [id number] 00:00:00 Test Item Value Reference Range Interpretation Comments GLUCOSE (test code = 2217) 239 MG/DL BUN (test code = 2208) 13 MG/DL CREATININE (test code = 2214) 0.40 MG/DL eGFR (2020 CKD-EPI) (test 137 ML/MIN/1.73 code = 32715) CALC BUN/CREAT (test code = 33 RATIO [...] ALT (test code = 2219) 54 U/L [id number] 00:00:00 Test Item Value Reference Range Interpretation Comments INSULIN (test code = 13840) 26 UIU/ML LIPID [id number] 00:00:00 Test Item Value Reference Range Interpretation Comments CHOLESTEROL (test code = 2210) 162 MG/DL TRIGLYCERIDES (test code = 2232) 95 MG/DL HDL CHOLESTEROL (test code = 2220) 44 MG/DL CALC LDL CHOL (test code = 2237) 99 MG/DL RISK RATIO LDL/HDL (test code = 2.25 RATIO 2238) HEMOGLOBIN [id number] 00:00:00 Test Item Value Reference Range Interpretation Comments HEMOGLOBIN A1c (test code = 17799) 9.3 % HEMOGLOBIN [id number] 00:00:00 Test Item Value Reference Range Interpretation Comments HEMOGLOBIN A1c (test code = 84993) 9.3 % COMPREHENSIVE METABOLIC [id number] 00:00:00 Test Item Value Reference Range Interpretation Comments GLUCOSE (test code = 2217) 239 MG/DL BUN (test code = 2208) 13 MG/DL CREATININE (test code = 2214) 0.40 MG/DL eGFR (2020 CKD-EPI) (test 137 ML/MIN/1.73 code = 69461) CALC BUN/CREAT (test code = 33 RATIO [...] code = 2219) 54 U/L TSH, THIRD [id number] 06:38:12 Test Item Value Reference Range Interpretation Comments TSH, THIRD 1.770 UIU/ML 0.400-4.100 UNLESS OTHERWI SE GENERATION (test INDICATED, ALL TESTING code = 7476) PERFORMED [facility], [facility] [address] [place] [address] DIRECTOR: OZ PISANO M.D. CLIA NUMBER [id number] CAP ACCREDITATION N O. [id number] COMPREHENSIVE METABOLIC [id number] 04:17:29 Test Item Value Reference Range Interpretation Comments GLUCOSE (test code = 274 MG/DL 70-99 H 2216) BUN (test code = 12 MG/DL 6-20 2207) CREATININE (test 0.45 MG/DL 0.60-1.30 L code = 2213) eGFR (2020 CKD-EPI) 133 >60 (test code = 80852) ML/MIN/1.73 CALC BUN/CREAT (test 27 RATIO 05-17 code = 2235) SODIUM (test code = 138 MEQ/L 168-920 3243) POTASSIUM (test code 4.7 MEQ/L 3.5-5.4 = [...] AST (test code = 35 U/L 9-40 8) ALT (test code = 45 U/L 5-40 H 2218) CBC W/AUTO DIFF WITH [id number] 02:44:36 Test Item Value Reference Range Interpretation [...] RBCS 0.00 K/UL 0.00-0.11 (test code = 52733) CBC W/AUTO [id number] 00:00:00 Test Item Value Reference Range Interpretation [...] NUCLEATED RBCS (test code = 0.00 K/UL 87398) CBC W/AUTO [id number] 00:00:00 Test Item Value Reference Range Interpretation [...] NUCLEATED RBCS (test code = 0.00 K/UL 14374) CBC W/AUTO [id number] 00:00:00 Test Item Value Reference Range Interpretation [...] NUCLEATED RBCS (test code = 0.00 K/UL 19131) COMPREHENSIVE METABOLIC [id number] 00:00:00 Test Item Value Reference Range Interpretation Comments GLUCOSE (test code = 2217) 274 MG/DL BUN (test code = 2208) 12 MG/DL CREATININE (test code = 2214) 0.45 MG/DL eGFR (2020 CKD-EPI) (test 133 ML/MIN/1.73 code = 88788) CALC BUN/CREAT (test code = 27 RATIO [...] code = 2219) 45 U/L COMPREHENSIVE METABOLIC [id number] 00:00:00 Test Item Value Reference Range Interpretation Comments GLUCOSE (test code = 2217) 274 MG/DL BUN (test code = 2208) 12 MG/DL CREATININE (test code = 2214) 0.45 MG/DL eGFR (2020 CKD-EPI) (test 133 ML/MIN/1.73 code = 75911) CALC BUN/CREAT (test code = 27 RATIO [...] ALT (test code = 2219) 45 U/L [id number] 00:00:00 Test Item Value Reference Range Interpretation Comments TSH, THIRD GENERATION (test code 1.770 UIU/ML = 2821) [id number] 00:00:00 Test Item Value Reference Range Interpretation Comments TSH, THIRD GENERATION (test code 1.770 UIU/ML = 2821) [id number] 00:00:00 Test Item Value Reference Range Interpretation Comments TSH, THIRD GENERATION (test code 1.770 UIU/ML = 2821) CBC W/AUTO [id number] 00:00:00 Test Item Value Reference Range Interpretation [...] NUCLEATED RBCS (test code = 0.00 K/UL 65365) CBC W/AUTO [id number] 00:00:00 Test Item Value Reference Range Interpretation [...] NUCLEATED RBCS (test code = 0.00 K/UL 86865) CBC W/AUTO [id number] 00:00:00 Test Item Value Reference Range Interpretation [...] NUCLEATED RBCS (test code = 0.00 K/UL 36818) COMPREHENSIVE METABOLIC [id number] 00:00:00 Test Item Value Reference Range Interpretation Comments GLUCOSE (test code = 2217) 274 MG/DL BUN (test code = 2208) 12 MG/DL CREATININE (test code = 2214) 0.45 MG/DL eGFR (2020 CKD-EPI) (test 133 ML/MIN/1.73 code = 64023) CALC BUN/CREAT (test code = 27 RATIO [...] code = 2219) 45 U/L COMPREHENSIVE METABOLIC [id number] 00:00:00 Test Item Value Reference Range Interpretation Comments GLUCOSE (test code = 2217) 274 MG/DL BUN (test code = 2208) 12 MG/DL CREATININE (test code = 2214) 0.45 MG/DL eGFR (2020 CKD-EPI) (test 133 ML/MIN/1.73 code = 48003) CALC BUN/CREAT (test code = 27 RATIO [...] ALT (test code = 2219) 45 U/L [id number] 00:00:00 Test Item Value Reference Range Interpretation Comments TSH, THIRD GENERATION (test code 1.770 UIU/ML = 2821) [id number] 00:00:00 Test Item Value Reference Range Interpretation Comments TSH, THIRD GENERATION (test code 1.770 UIU/ML = 2821) [id number] 00:00:00 Test Item Value Reference Range Interpretation Comments TSH, THIRD GENERATION (test code 1.770 UIU/ML = 2821) CBC W/AUTO [id number] 00:00:00 Test Item Value Reference Range Interpretation [...] NUCLEATED RBCS (test code = 0.00 K/UL 34074) CBC W/AUTO [id number] 00:00:00 Test Item Value Reference Range Interpretation [...] NUCLEATED RBCS (test code = 0.00 K/UL 69654) CBC W/AUTO [id number] 00:00:00 Test Item Value Reference Range Interpretation [...] NUCLEATED RBCS (test code = 0.00 K/UL 57710) COMPREHENSIVE METABOLIC [id number] 00:00:00 Test Item Value Reference Range Interpretation Comments GLUCOSE (test code = 2217) 274 MG/DL BUN (test code = 2208) 12 MG/DL CREATININE (test code = 2214) 0.45 MG/DL eGFR (2020 CKD-EPI) (test 133 ML/MIN/1.73 code = 54008) CALC BUN/CREAT (test code = 27 RATIO [...] code = 2219) 45 U/L COMPREHENSIVE METABOLIC [id number] 00:00:00 Test Item Value Reference Range Interpretation Comments GLUCOSE (test code = 2217) 274 MG/DL BUN (test code = 2208) 12 MG/DL CREATININE (test code = 2214) 0.45 MG/DL eGFR (2020 CKD-EPI) (test 133 ML/MIN/1.73 code = 66678) CALC BUN/CREAT (test code = 27 RATIO [...] ALT (test code = 2219) 45 U/L [id number] 00:00:00 Test Item Value Reference Range Interpretation Comments TSH, THIRD GENERATION (test code 1.770 UIU/ML = 2821) [id number] 00:00:00 Test Item Value Reference Range Interpretation Comments TSH, THIRD GENERATION (test code 1.770 UIU/ML = 2821) [id number] 00:00:00 Test Item Value Reference Range Interpretation Comments TSH, THIRD GENERATION (test code 1.770 UIU/ML = 2821) CBC W/AUTO [id number] 00:00:00 Test Item Value Reference Range Interpretation [...] NUCLEATED RBCS (test code = 0.00 K/UL 03631) CBC W/AUTO [id number] 00:00:00 Test Item Value Reference Range Interpretation [...] NUCLEATED RBCS (test code = 0.00 K/UL 32179) CBC W/AUTO [id number] 00:00:00 Test Item Value Reference Range Interpretation [...] NUCLEATED RBCS (test code = 0.00 K/UL 58574) COMPREHENSIVE METABOLIC [id number] 00:00:00 Test Item Value Reference Range Interpretation Comments GLUCOSE (test code = 2217) 274 MG/DL BUN (test code = 2208) 12 MG/DL CREATININE (test code = 2214) 0.45 MG/DL eGFR (2020 CKD-EPI) (test 133 ML/MIN/1.73 code = 36896) CALC BUN/CREAT (test code = 27 RATIO [...] code = 2219) 45 U/L COMPREHENSIVE METABOLIC [id number] 00:00:00 Test Item Value Reference Range Interpretation Comments GLUCOSE (test code = 2217) 274 MG/DL BUN (test code = 2208) 12 MG/DL CREATININE (test code = 2214) 0.45 MG/DL eGFR (2020 CKD-EPI) (test 133 ML/MIN/1.73 code = 60168) CALC BUN/CREAT (test code = 27 RATIO [...] ALT (test code = 2219) 45 U/L [id number] 00:00:00 Test Item Value Reference Range Interpretation Comments TSH, THIRD GENERATION (test code 1.770 UIU/ML = 2821) [id number] 00:00:00 Test Item Value Reference Range Interpretation Comments TSH, THIRD GENERATION (test code 1.770 UIU/ML = 2821) [id number] 00:00:00 Test Item Value Reference Range Interpretation Comments TSH, THIRD GENERATION (test code 1.770 UIU/ML = 2821) CBC W/AUTO [id number] 00:00:00 Test Item Value Reference Range Interpretation [...] NUCLEATED RBCS (test code = 0.00 K/UL 54925) CBC W/AUTO [id number] 00:00:00 Test Item Value Reference Range Interpretation [...] NUCLEATED RBCS (test code = 0.00 K/UL 48368) COMPREHENSIVE METABOLIC [id number] 00:00:00 Test Item Value Reference Range Interpretation Comments GLUCOSE (test code = 2217) 274 MG/DL BUN (test code = 2208) 12 MG/DL CREATININE (test code = 2214) 0.45 MG/DL eGFR (2020 CKD-EPI) (test 133 ML/MIN/1.73 code = 20351) CALC BUN/CREAT (test code = 27 RATIO [...] ALT (test code = 2219) 45 U/L [id number] 00:00:00 Test Item Value Reference Range Interpretation Comments TSH, THIRD GENERATION (test code 1.770 UIU/ML = 2821) [id number] 00:00:00 Test Item Value Reference Range Interpretation Comments TSH, THIRD GENERATION (test code 1.770 UIU/ML = 2821) POCT [id number] 14:31:00 Test Item Value Reference Range Interpretation Comments POCT PREG (test code = 1605) Negative On board controls acceptable with C Yes Line (test code = 3579) POCT PREG LOT # (test code = 3575) POCT PREG TEST DATE (test code = 3576) [facility]
[2023-02-05 16:40] LABS: Absolute Lymphocytes (CBC) 1.6 K/uL (0.7-4.9); Hematocrit 39.6 % (36.0-45.0); Lymphocytes % 26.8 % (15.3-44.8); MCV 82.2 fL (80-100); RBC Red Blood Cell Count 4.82 M/uL (3.86-4.86)
[2023-02-05 16:45] LABS: Urine Blood 3+ (Negative); Urine Glucose Negative (Negative); Urine Protein 1+ (Negative); Urine Specific Gravity >=1.030 (1.005-1.030); Urine pH 5.5 (5.0-7.0)
[2023-02-05 16:57] LABS: Potassium 3.4 mEq/L (3.5-5.1)
[2023-02-05 17:04] LABS: Urine Specific Gravity/Preg >1.030 (1.005-1.030)
--- NOTE | 2023-02-05 17:25 | ER ---
Nurse's Notes [facility] Name: Chano Washington Age: 32 yrs Sex: Female : 1990 Arrival Date: 02/05/2023 Time: 15:57 Bed 20 Private MD: Diagnosis: Irregular menstruation, unspecified Presentation: 02/05 16:09 Chief complaint: Patient states: Started vaginal bleeding 45 min [employer]. Similar to start ll1 of a normal period. No pain at this time. LMP 01/05/23. G5, P4. + test last week at [facility]. Coronavirus screen: Vaccine status: Patient reports receiving the 2nd dose of the covid vaccine. Client denies travel out of the [place] in the last 14 days. At this time, the client does not indicate any symptoms associated with coronavirus-19. Ebola Screen: Patient denies travel to an Ebola-affected area in the 21 days before illness onset. Initial Sepsis Screen: Does the patient meet any 2 criteria? No. Patient's initial sepsis screen is negative. Does the patient have a suspected source of infection? No. Patient's initial sepsis screen is negative. Risk Assessment:. Risk Assessment: Do you want to hurt yourself or someone else? Patient reports no desire to harm self or others. Onset of symptoms was February 05, 2023. 16:09 Method Of Arrival: Ambulatory ll1 16:09 Acuity: MARLIN 3 ll1 Triage Assessment: 16:11 General: Appears uncomfortable, Behavior is cooperative, appropriate for age, anxious, ll1 crying. Pain: Denies pain. : Reports vaginal bleeding that is bright red, moderate flow. Historical: - Allergies: 16:09 No Known Allergies; ll1 - PMHx: 16:09 Diabetes mellitus; ll1 - PSHx: 16:09 section; ll1 - Immunization history:: Client reports receiving the 2nd dose of the Covid vaccine. - Social history:: Smoking status: Patient denies any tobacco usage or history of. Vital Signs: 16:09 BP 145 / 100; Pulse 81; Resp 19; Temp 98.6; Pulse Ox 98% ; Weight 111.58 kg; Height 5 ll1 ft. 1 in. ; Pain 0/10; 16:09 Body Mass Index 46.48 (111.58 kg, 154.94 cm) ll1 16:09 Pain Scale: Adult ll1 ED Course: 15:57 Patient arrived in ED. am2 16:03 [facility]re[facility] Will[facility]C [facility] kb 16:03 Antonio Hernandez MD is Attending Physician. kb 16:09 Arm band placed on Patient placed in an exam room, on a stretcher. ll1 16:11 Triage completed. ll1 16:13 Shantal Upton, RN is Primary Nurse. eh3 16:20 Inserted saline lock: 20 gauge in left antecubital area, using aseptic technique. Blood eh3 collected. Administered Medications: No medications were administered Outcome: 17:25 Discharge ordered by . kb Signatures: Tereza Willams FNP-C [employer] JOURNEYMAN-Reshma Michele am2 Giovanni Cabrera, RN RN 1 Shantal Upton, RN RN 3
--- NOTE | 2023-02-05 17:25 | EDPHYS ---
Physician Documentation [facility] Name: Chano Washington Age: 32 yrs Sex: Female : 1990 Arrival Date: 02/05/2023 Time: 15:57 Bed 20 Private MD: ED Physician Antonio Hernandez Historical: - Allergies: 02/05 16:09 No Known Allergies; ll1 - PMHx: 16:09 Diabetes mellitus; ll1 - PSHx: 16:09 section; ll1 - Immunization history:: Client reports receiving the 2nd dose of the Covid vaccine. - Social history:: Smoking status: Patient denies any tobacco usage or history of. Vital Signs: 16:09 BP 145 / 100; Pulse 81; Resp 19; Temp 98.6; Pulse Ox 98% ; Weight 111.58 kg; Height 5 ll1 ft. 1 in. ; Pain 0/10; 16:09 Body Mass Index 46.48 (111.58 kg, 154.94 cm) ll1 16:09 Pain Scale: Adult ll1 MDM: 16:03 Patient medically screened. kb 02/05 16:07 Order name: NPO; Complete Time: 16:13 kb 02/05 16:07 Order name: IV Saline Lock; Complete Time: 16:36 kb 02/05 16:07 Order name: Labs collected and sent; Complete Time: 16:36 kb 02/05 16:07 Order name: CBC with Diff; Complete Time: 16:47 kb 02/05 16:07 Order name: Urine Dipstick-Ancillary (obtain specimen); Complete Time: 16:49 kb 02/05 16:07 Order name: Urine Test (obtain specimen); Complete Time: 16:49 kb 02/05 16:07 Order name: Basic Metabolic Panel; Complete Time: 16:59 kb 02/05 16:07 Order name: Quantitative Hcg; Complete Time: 16:59 kb 02/05 16:50 Order name: Urine --Ancillary (enter results); Complete Time: 17:14 kj1 02/05 16:07 Order name: Abo/rh Typing; Complete Time: 17:14 kb 02/05 16:45 Order name: Urine Dipstick-Ancillary; Complete Time: 16:47 EDMS Administered Medications: No medications were administered Disposition Summary: 02/05/23 17:25 Discharge Ordered Location: Home kb Condition: Stable kb Diagnosis - Irregular menstruation, unspecified kb Followup: kb - With: Emergency Department - When: As needed - Reason: Worsening of condition Followup: kb - With: Private Physician - When: 2 - 3 days - Reason: Recheck today's complaints, Continuance of care, Re-evaluation by your physician Discharge Instructions: - Discharge Summary Sheet kb - Abnormal Uterine Bleeding, [id number] kb Forms: - Medication Reconciliation Form kb - Thank You Letter kb - Antibiotic Education kb - Prescription Opioid Use kb Signatures: Dispatcher [employer] EDTereza Alba, FOUNDRY LABORER COREROOM-C OUSMANE-Giovanni Moore RN RN ll1 Corrections: (The following items were deleted from the chart) 17:23 16:07 Transvaginal Ob+US.RAD.BRZ ordered. [facility] ED[facility]
== END 2023-02-05 17:56 | disposition home or self-care (01) ==
LOC: ER 15:50
DX: N92.6 Irregular menstruation, unspecified (principal); E11.9 Type 2 diabetes mellitus without complications
CPT/HCPCS: 36415; 80048; 81003; 81025; 84702; 85025; 86900; 86901; 99284